=== PATIENT | male | born 1960 | race Caucasian/White ===

== ENCOUNTER → 2020-06-04 10:19 | Outpatient (CLI) | payer OTHER, SELFPAY ==
--- NOTE | ~2020-06-04 | CT_ITS ---
EXAMINATION: CT soft tissue neck w con DATE: 06/04/2020 10:48 INDICATION: Right neck lump. TECHNIQUE: Computed tomography (CT) of the neck was performed with 75 mL Omnipaque-350 intravenous co ntrast. Automated exposure control and iterative reconstruction technique were employed. The dose-erich gth product was 420.53 mGy-cm. COMPARISON: Cervical spine MRI 07/23/2011 FINDINGS: There are enlarged right mid and high internal jugular chain lymph nodes. A high right inte rnal jugular lymph node measures 3.3 x 3.1 cm. The lingual tonsils are prominent, which is chronic. T here is plaque in the proximal internal carotid arteries with less than 50% stenosis relative to norm al distal artery lumen diameters. There is severe cervical spondylosis. IMPRESSION: 1. Right internal jugular chain lymphadenopathy suspicious for metastatic squamous cell carcinoma or less likely lymphoma. Ultrasound-guided core needle biopsy is recommended. Reviewed, dictated and finalized at location A. 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 Right internal jugular chain lymphadenopathy suspicious for metastatic squam ous cell carcinoma or less likely lymphoma. Ultrasound-guided core needle biops y is recommended.
[2020-06-04 10:36] LABS: Estimated Glomerular Filt Rate > 60
== END ==
PROVIDERS: PCP Internal Medicine; Visit Provider Internal Medicine
DX: R22.0 Localized swelling, mass and lump, head (principal)
CPT/HCPCS: 70491; Q9967

== ENCOUNTER → 2020-09-27 09:15 | Outpatient (CLI) | payer OTHER, SELFPAY ==
--- NOTE | ~2020-09-27 | CT_ITS ---
EXAMINATION: CT soft tissue neck w con DATE: 09/27/2020 09:42 INDICATION: Right neck mass. TECHNIQUE: Computed tomography (CT) of the neck was performed with 75 mL Omnipaque-350 intravenous co ntrast. Automated exposure control and iterative reconstruction technique were employed. The dose-erich gth product was 458.53 mGy-cm. COMPARISON: Neck CT 06/04/2020 FINDINGS: There are enlarged right high and mid internal jugular chain lymph nodes. The largest node measures 4.2 x 3.7 cm and contains cystic areas, worsened from 3.4 x 2.9 cm on 06/04/2020. There is vivien que in the proximal internal carotid arteries with less than 50% stenosis relative to normal distal a rtery lumen diameters. There is mild mucosal thickening in the paranasal sinuses. There is severe cer vical spondylosis. IMPRESSION: 1. Worsened right internal jugular chain lymphadenopathy, likely metastatic squamous cell carcinoma. Ultrasound-guided core needle biopsy is recommended. Reviewed, dictated and finalized at location B. IMPRESSION: 1. Worsened right internal jugular chain lymphadenopathy, likely metastatic squ amous cell carcinoma. Ultrasound-guided core needle biopsy is recommended.
[2020-09-27 09:33] LABS: Estimated Glomerular Filt Rate > 60
== END ==
PROVIDERS: Visit Provider Otolaryngology
DX: R59.1 Generalized enlarged lymph nodes (principal)
CPT/HCPCS: 70491; Q9967

== ENCOUNTER 2024-06-10 08:43 | Outpatient (CLI) | payer OTHER, SELFPAY ==
--- NOTE | ~2024-06-10 | CT_ITS ---
EXAMINATION: CT soft tissue neck w con DATE: 06/10/2024 09:15 INDICATION: Mass of neck. TECHNIQUE: Computed tomography (CT) of the neck was performed with 75 mL Omnipaque-350 intravenous co ntrast. Automated exposure control and iterative reconstruction technique were employed. The dose-erich gth product was 455.77 mGy-cm. COMPARISON: Neck CT 09/27/2020 FINDINGS: There is a new 4 mm nodule in right lung upper lobe. There is a 5.0 x 3.8 cm mass involving the right palatine tonsil, base of tongue, tongue, and floor of mouth. There is right submandibular and right mid internal jugular chain lymphadenopathy. A right mid internal jugular merle mass measure s 5.6 x 3.6 cm. There are nodules in the thyroid measuring up to 9 mm, likely not clinically signific ant. There are enlarged left mid internal jugular chain lymph nodes. There is mild mucosal thickening in the paranasal sinuses. There is plaque in the proximal internal carotid arteries with less than 5 0% stenosis relative to normal distal artery lumen diameters. There is severe cervical spondylosis. IMPRESSION: 1. Mass involving the right palatine tonsil, base of tongue, tongue, and floor of mouth, consistent w ith squamous cell carcinoma. 2. Bilateral cervical lymphadenopathy, consistent with metastatic disease. 3. 4 mm pulmonary nodule, new from 09/27/2020, which is indeterminate for metastatic disease. Reviewed, dictated and finalized at location [facility] IMPRESSION: 1. Mass involving the right palatine tonsil, base of tongue, tongue, and floor of mouth, consistent with squamous cell carcinoma. 2. Bilateral cervical lymphadenopathy, consistent with metastatic disease. 3. 4 mm pulmonary nodule, new from 09/27/2020, which is indeterminate for metast atic disease.
--- OUTSIDE RECORDS SUMMARY | 2024-06-10 09:00 | XMS_ITS | Clinical Summary ---
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 Gender Identity Not on file Sexual Orientation Not on file Plan of Treatment Health Maintenance Due Date Last Done Comments Colorectal Cancer Screening Colonoscopy (10 Years) 1962 Annual Physical 1965 Hepatitis C 1980 DTaP, Tdap and Td Vaccines ( 1 - Tdap) 1981 Zoster Vaccines (1 of 2) 2012 COVID-19 Vaccine ( - 2023-2 5 season) 2024 Influenza Adult (#1) 2024 RSV Immunization or 60+ Years (1 - 1-dose 75+ series) 2037 Meningococcal B Vaccine Aged Out No l onger eligible based on patient's age to complete this topic Meningococcal Vaccine Aged Out No noris rebeca eligible based on patient's age to complete this topic Pneumococcal Vaccine: Pediat rics (0 to 5 Years) and At-Risk Patients (6 to 64 Years) Aged Out No longer eligible b ased on patient's age to complete this topic RSV Immunizations Under 20 Months Aged Out No longer eligible based on patient's age to complete this topic
--- OUTSIDE RECORDS SUMMARY | 2024-06-10 09:00 | XMS_ITS | Data Portability ---
Author Organization [place] - [facility] , [facility] Address [address] [place] [address] Assessment Encounter Date Assessment Date Assessment LastModified by Organization Details LastModified Time 05/23/2024 05/23/2024 Provided counseling/treatme nt recommendations as noted below: Education provided on relevant diagnosis Medication Options: DD: Cellulitis vs Abscess -Take bactrim as prescribed. Patient is advised to follow up with his PCP within the next 7 days for follow up and evaluation. Patient is informed that bilateral lower leg swelling can be a sign of cardiac issues. Patient states understanding. -Morgan the area with a marker to track progress of infection -Epsom salt soaks -Elevate the area throughout the day -Tylenol or Ibuprofen as needed for discomfort to the area -Cover the area as needed to avoid introducing bacteria and leave open to air when possible to promote healing -Report to the emergency department for any fevers, sweats, chills, loss of sensation, increased swelling, red streaking, numbness, or tingling. -Follow up as needed for continued symptoms -Counseled on the importance of follow up if symptoms not improving with recommended treatment plan. Patient to be seen for repeat evaluation if symptoms worsen, counseled on red flag symptoms to indicate need for emergent follow up. Patient expressed understanding and agreement with the treatment plan as [email or web address] Not available 05/23/2024 15:09:45 Plan of Treatment Reminders Order Date Submit Date Provider Last Modified By Organization Details Last Modified Time Details Appointments None recorded. Lab None recorded. Referral None recorded. Procedures None recorded. Surgeries None recorded. Imaging None recorded. Medication Orders cephalexin 500 mg capsule 2023 025 [facility] #[id number], [address], [place], [place], [id number], 15:02:51 Bactrim DS 800 mg-160 mg tablet 2024 025 [id number], [address], [place], [place], [id number], 15:07:49 Patient TargetsNo targets recorded. Patient Instructions Encounter Date Encounter Id Patient Instructions Last Modified By Organization Details Last Modified Time 04/29/2024 [id number] cellulitis: care instructions [email or web address] Not available 04/29/2024 13:25:55 Reason for Referral None Reported. Problems No Known Problems Medical Equipment None Reported. Allergies No known drug allergies Medications Name Sig Start Date Stop Date Status Note LastModified by Organization Details LastModified Time cephalexin 500 mg capsule Take 1 capsule every 6 hours by oral route for 7 days. 05/23 completed Not Available Not Available Not Available Bactrim DS 800 mg-160 mg tablet Take 1 tablet every 12 hours by oral route for 7 days. 2024 active Not Available Not Available Not Avai lable Vitals None Recorded Social History None recorded. Functional Status None recorded. Mental Status None recorded. Family History Nothing Reported. Medical History Condition Response Cancer Y Past Encounters Encounter ID Performer Location Encounter Start Date Encounter Closed Date Diagnosis/Indication Diagnosis SNOMED-CT Code Diagnosis ICD10 Code Diagnosis Note [id number] DAMIÁN Sinhg [facility] [place] [address] 04/29/2024 13:07:09 04/29/2024 19:14:18 Cellulitis 405416533 L03.90 Complete full course of antibiotic Prop up legs on pillows to reduce pain and swellingF/ U with PCP [id number] DAMIÁN Rdz [facility] [place] [address] 05/23/2024 14:49:00 05/23/2024 21:07:52 Cellulitis of left lower limb [id number] L03.116 Cellulitis of right lower limb [id number] L03.115 Health Concerns Section Related Observation LastModified by Organization [place] lizama LastModified Time None Recorded Concern Status LastModified by Organization Details LastModified Time None Recorded Advance Directives Directive None Recorded Payers Encounter Date Sequence Insurance Name Policy Number Policy Shane Covered Member ID Shane Member ID Guarantor Name 04/29/[address] [facility] [id number] Leaann Ernesto [id number] Leaann Ernesto 04/29/2024 3 *SELF PAY* [id number] Leaann Ernesto [id number] Leaann Ernesto 05/23/[address] [facility] [id number] Leaann Ernesto [id number] Leaann Ernesto 05/23/2024 3 *SELF PAY* [id number] Leaann Ernesto [id number] Leaann Ernesto Notes Date Note Type Note Provider Name and Address Organization Details Recorded Time 04/29/2024 text/html Call connected, patient greeted. Patient name, , telephone number, and location verified verbally with the patient. Telemedicine limitations reviewed, answered all questions the patient had about the telehealth interaction, and verbal consent obtained to treat. Clinician attests they are physically located in the following state at the time of visit: [place] HPI: 64 y/o male c/o cellulitis to bilateral lower extremities x 1 week. Bilateral lower legs edematous with macular erythema, per patient, itches at night. Patient denies pain, warmth to touch, leg wounds, ulcers, open areas. Reports history of cellulitis to bilateral lower extremities. DAMIÁN Singh [address] [place] [address], [place], [address], [facility] 04/29/2024 13:26:06 05/23/2024 text/html Call connected, patient greeted. Patient name, , telephone number and location verified verbally with the patient. Telemedicine limitations reviewed, answered all questions the patient had about the telehealth interaction, and verbal consent obtained to treat. Clinician attests they are physically located in the following state at the time of visit: [place] CC:skin issue HPI:64 year old male patient presents today for swelling and redness to the lower legs bilaterally starting April 22, 2024, He was seen through urgent care telehealth 04/29/24 and was treated with keflex x 7 days with relief in symptoms but then the symptoms returned again.OTC/prescrip tion medications and/or at home treatments include: nonePatient denies: fevers, sweats, chills, numbness, tingling, or loss of sensation DAMIÁN Rdz [address] [place] [address] [address], [place], [address], [facility] 05/23/2024 15:11:39
--- OUTSIDE RECORDS SUMMARY | 2024-06-10 09:01 | XMS_ITS | Clinical Summary ---
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 Name Role Phone Marcos Mi MD Primary Care Provider [phone] Hosea Varela MD Unavailable [phone] Guero Fernandez MD Unavailable [phone] Allergies No known active allergies Medications lisinopril (PRINIVIL, ZESTRIL) 40 MG Tablet lisinopril 40 mg tablet TAKE 1 TABLET BY MOUTH EVERY DAY Active amLODIPine (NORVASC) 10 MG Tablet amlodipine 10 mg tablet TAKE 1 TABLET BY MOUTH EVERY DAY Active Active Problems Problem Noted Date Diagnosed Date Anxiety disorder due to medical condition 2020 Overview (12/21/2020): 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 Family History Medical History Relation Name Comments Heart Attack Mother Relation Name Status Comments Father Mother Social History Tobacco Use Types Packs/Day Years Used Date Smoking Tobacco: Former Cigarettes 0.5 14 0 12/20/1976 - 12/20/1990 Cigars Smokeless Tobacco: Never Comments:He quit smoking cig arettes 1990 but continued to smoke the occasional cigar until several months ago when he also quit that. Alcohol Use Standard Drinks/Week Comments Yes 0 (1 standard drink = 0.6 oz pur e alcohol) Occasionally/weekly. Sex and Gender Information Value Date Recorded Sex Assigned at Not on file Legal Sex Male 10:48 AM CDT Gender Identity Not on file Sexual Orientation Not on file Last Filed Vital Signs Vital Sign Reading Time Taken Comments Blood Pressure 164/64 12/20/2020 10:31 AM CDT Pulse 114 12/20/2020 10:31 AM CDT Temperature 36.7 C (98 F) 12/20/2020 10:31 AM CDT Respiratory Rate 18 12/20/2020 10:31 AM CDT Oxygen Saturation 97% 12/20/2020 10:31 AM CDT Inhaled Oxygen Concentration - - Weight 99.8 kg (220 lb) 12/20/2020 10:31 AM CDT Height 180.3 cm (5' 11 ) 12/20/2020 10:31 AM CDT Body Mass Index 30.68 12/20/2020 10:31 AM CDT Plan of Treatment Health Maintenance Due Date Last Done Comments Hepatitis C Virus (HCV) Screening 1960 TdaP Immunization 1962 SARS-COV-2 Immunization (#1) 1967 Pneumococcal Immunization Co mbined (1 of 2 - PCV) 1968 Pneumococcal Immunization (5 0+ years) (1 of 2 - PCV) 1981 Zoster Immunization (1 of 2) 1981 Colonoscopy 2007 Colorectal Cancer Screening 2007 Cologuard 2012 Immunochemical Fecal Occult Blood 2012 PSA Discussion 2017 Influenza Immunization (#1) 2024 Respiratory Syncytial Virus (RSV) Immunization (Adult) (1 - 1-dose 75+ series) 2037 Hepatitis B Immunization Aged Out No longer eligible based on patient's age to complete this topic Meningococcal Immunization (ACWY) Aged Out No longer eligible based on patient's age to complete this topic Rotavirus Immunization Aged Out No lo nger eligible based on patient's age to complete this topic Insurance Care Teams Geophysics Teacher Relationship Specialty Start Date End Date Marcos Mi MD PCP - General Internal Medicine 12/04/20 Hosea Varela MD [address] [place] [address] Consulting Physician Otolaryngology 12/18/20 Guero Fernandez MD [address] [place] [address] Consulting Physician Radiation Oncology 12/18/20
--- OUTSIDE RECORDS SUMMARY | 2024-06-10 09:01 | XMS_ITS | Data Portability ---
Author Organization [facility] [employer], Main Office Address [address] [place] [address] Assessment No assessment recorded. Plan of Treatment Reminders Order Date Submit Date Provider Last Modified By Organization Details Last Modified Time Details Appointments New Patient 15 2024 10:15A Marty Varela MD Not available Not available Not available Lab CBC w/ auto diff 2024 025 [facility], [address] [place], [address], 06/06/2024 00:30:27 CMP, serum or plasma 2024 025 [facility], [address] [place], [address], 06/06/2024 00:30:27 Referral otolaryng ologist referral - Please call patient to schedule an appointme nt. Thank you. 2024 025 [facility] Vare[facility], [address], [place], [address], 06/03/2024 14:05:23 Procedures None recorded. Surgeries None recorded. Imaging CT, neck, soft tissue, w/ contrast - Please call patient to schedule. 2024 025 [facility]A [facility], [address], [place], [address], 06/06/2024 17:30:38 Medication Orders triamcino lone acetonide 0.1 % topical cream 2024 025 [id number], [address], [place], [place], [id number], 06/03/2024 13:31:49 lisinopri l 20 mg tablet 2024 025 [id number], [address], [place], [place], [id number], 06/03/2024 13:31:51 Patient TargetsNo targets recorded. Patient InstructionsNo instructions recorded. 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 Thank you. Referring Physician: Marcos Mi, Internal Medicine, Encounter Date: 06/03/2024 Results Created Date Observation Date Name Description Value Unit Range Abnormal Flag Note LastModifiedBy Organization Detail LastModifiedTime 11/14/19 21 11/13/2020 COVID -19 (SARS COV-2 ) RNA, VANE covid-19 RNA negati ve This test has been autho rized by the FDA under an Emerg ency Use Autho rizat ion (EUA) for use by autho rized labor atori es. Negat stuart resul ts shoul d be treat ed as presu mptiv e and, if incon siste nt with clini ebenezer signs and sympt oms neces tina for patie nt manag ement , shoul d be teste d with diffe rent autho rized or clear ed molec ular tests . Negat stuart resul ts do not precl ude SARS- Co-V- 2 infec tion and shoul d not be used as the sole basis for patie nt manag ement decis ions. Negat stuart resul ts shoul d be consi dered in the rachel xt of a patie nt's recen t expos ures, histo ry and the prese nce of clini ebenezer signs and sympt oms consi stent with COVID -19. Dolores e brooklynn w the Fact Sheet s for healt h care provi ders and patie nts at the [facility] te: https ://gl oalpo into care. t/en/ produ ct-de tails /id-n ow-co vid-1 9.htm l Metho dolog y: Isoth ermal Nucle ic Acid Ampli ficat ion Not Available [facility] (Lab) [address] [place], [address], 11/13/2020 17:45:24 11/17/19 21 11/16/2020 POTAS SIUM potassium 3.9 mmol/ L 3.5-5. 1 Not Available [facility] (Lab) [address] [place], [address], 11/16/2020 12:27:30 11/17/19 21 11/16/2020 PLATE LET COUNT platelets 240 x10'3 /uL 150-40 0 Not Available [facility] (Lab) [address] [place], [address], 11/16/2020 12:19:13 11/17/19 21 11/16/2020 HEMOG LOBIN /SHEBA TOCRI T hemoglobin 15.5 g/dL 13.2-1 7.0 Not Available [facility] (Lab) [address] [place], [address], 11/16/2020 12:19:09 11/17/19 21 11/16/2020 HEMOG LOBIN /SHEBA TOCRI T hematocrit 44.7 % 39.3-5 0.0 Not Available [facility] (Lab) [address] [place], [address], 11/16/2020 12:19:09 05/02/20 21 05/02/2021 MICRO ALBUM IN RANDO M URINE microalb 31.2 mg/L 0.0-16 .6 high Not Available [facility] (Lab) [address] [place], [address], 05/02/2021 20:15:27 05/02/20 21 05/02/2021 HEMOG LOBIN A1C HA1C 5.4 % 4.0-6. 0 Diabe samir Scree daron Crite laura: <5.7% Consi stent with absen ce of diabe samir 5.7-6 .4% Consi stent with incre ased risk for diabe samir (pred iabet es) >OR=6 .5% Consi stent with diabe samir REFER ENCE: Diabe samir Care 2016, 39(Sena ppl.1 ):s13 -s22 Not Available [facility] (Lab) [address] [place], [address], 05/02/2021 21:27:25 05/02/20 21 05/02/2021 COMPR EHENS STUART METAB OLIC PANEL sodium 140 mmol/ L 137-14 5 Not Available [facility] (Lab) [address] [place], [address], 05/02/2021 20:17:15 05/02/20 21 05/02/2021 COMPR EHENS STUART METAB OLIC PANEL potassium 4.1 mmol/ L 3.5-5. 1 Not Available [facility] (Lab) [address] [place], [address], 05/02/2021 20:17:15 05/02/20 21 05/02/2021 COMPR EHENS STUART METAB OLIC PANEL chloride 102 mmol/ L 98-107 Not Available [facility] (Lab) [address] [place], [address], 05/02/2021 20:17:15 05/02/20 21 05/02/2021 COMPR EHENS STUART METAB OLIC PANEL carbon dioxide 24 mmol/ L 22-30 Not Available [facility] (Lab) [address] [place], [address], 05/02/2021 20:17:15 05/02/20 21 05/02/2021 COMPR EHENS STUART METAB OLIC PANEL agap 18.1 mmol/ L 14-22 Not Available [facility] (Lab) [address] [place], [address], 05/02/2021 20:17:15 05/02/20 21 05/02/2021 COMPR EHENS STUART METAB OLIC PANEL glucose 135 mg/dL 70-99 high Not Available [facility] (Lab) [address] [place], [address], 05/02/2021 20:17:15 05/02/20 21 05/02/2021 COMPR EHENS STUART METAB OLIC PANEL BUN 10 mg/dL 8-19 Not Available [facility] (Lab) [address] [place], [address], 05/02/2021 20:17:15 05/02/20 21 05/02/2021 COMPR EHENS STUART METAB OLIC PANEL creatinine 0.83 mg/dL 0.66-1 .25 Not Available [facility] (Lab) [address] [place], [address], 05/02/2021 20:17:15 05/02/20 21 05/02/2021 COMPR EHENS STUART METAB OLIC PANEL GFR >60 Refer ence Range : [place] [facility] GFR Healt hy Adult : >60 mL/mi n/1.7 3 m2 Chron ic Kidne y Disea se: 15-60 mL/mi n/1.7 3 m2 Kidne y Failu re: <15/m L/min /1.73 m2 www.n iddk. nih.g ov The MDRD study equat ion has not been valid ated in child rommel <18 years of age; pregn ant women ; the elder ly >85 years of age; or in some racia l or ethni c subgr oups, such as Hispa nics. Outsi de the valid ated zara eters , estim ated GFR is less accur ate, requi ring clini ebenezer judgm ent on a case- by-ca se basis . Clini ebenezer inter preta tion for other races and ages must be made by the clini lisa. The MDRD study equat ion has not been valid ated for the evalu ation of serum creat inine relat ed to nutri gurdeep l statu s or medic ation usage . For perso ns <18 years of age, a pedia tric GFR calcu dianne is avail able on the [facility] websi te: https ://stephanie w.dave goldsteiny.o trini/pr ofess ional s/kdo qi/gf r_cal culat or Not Available [facility] (Lab) [address] [place], [address], 05/02/2021 20:17:15 05/02/20 21 05/02/2021 COMPR EHENS STUART METAB OLIC PANEL alkaline phosphatase 88 U/L 38-126 Not Available [facility] (Lab) [address] [place], [address], 05/02/2021 20:17:15 05/02/20 21 05/02/2021 COMPR EHENS STUART METAB OLIC PANEL alanine aminotransfe rase 20 U/L 0-50 Not Available [facility] (Lab) [address] [place], [address], 05/02/2021 20:17:15 05/02/20 21 05/02/2021 COMPR EHENS STUART METAB OLIC PANEL aspartate aminotransfe rase 22 U/L 15-46 Not Available [facility] (Lab) [address] [place], [address], 05/02/2021 20:17:15 05/02/20 21 05/02/2021 COMPR EHENS STUART METAB OLIC PANEL bilirubin, total 0.80 mg/dL 0.20-1 .30 Not Available [facility] (Lab) [address] [place], [address], 05/02/2021 20:17:15 05/02/20 21 05/02/2021 COMPR EHENS STUART METAB OLIC PANEL calcium 9.4 mg/dL 8.4-10 .2 Not Available [facility] (Lab) [address] [place], [address], 05/02/2021 20:17:15 05/02/20 21 05/02/2021 COMPR EHENS STUART METAB OLIC PANEL total protein 7.5 g/dL 6.3-8. 2 Not Available [facility] (Lab) [address] [place], [address], 05/02/2021 20:17:15 05/02/20 21 05/02/2021 COMPR EHENS STUART METAB OLIC PANEL albumin 4.7 g/dL 3.4-5. 0 Not Available [facility] (Lab) [address] [place], [address], 05/02/2021 20:17:15 05/02/20 21 05/02/2021 COMPR EHENS STUART METAB OLIC PANEL globulin 2.8 g/dL 2.6-4. 2 Not Available [facility] (Lab) [address] [place], [address], 05/02/2021 20:17:15 05/02/20 21 05/02/2021 COMPR EHENS STUART METAB OLIC PANEL A/G ratio 1.7 ratio 1.0-2. 0 Not Available [facility] (Lab) [address] [place], [address], 05/02/2021 20:17:15 05/02/20 21 05/02/2021 CBC/C OMPLE TE BLD COUNT W/DIF F mean RBC HGB concentratio n 33.1 g/dL 31.0-3 6.0 Not Available [facility] (Lab) [address] [place], [address], 05/02/2021 19:42:32 05/02/20 21 05/02/2021 CBC/C OMPLE TE BLD COUNT W/DIF F white blood cells 8.8 x10'3 /uL 4.2-10 .8 Not Available [facility] (Lab) [address] [facility] [place], [address], 05/02/2021 19:42:32 05/02/20 21 05/02/2021 CBC/C OMPLE TE BLD COUNT W/DIF F red blood cells 5.37 x10'6 /uL 4.10-5 .80 Not Available [facility] (Lab) [address] [place], [address], 05/02/2021 19:42:32 05/02/20 21 05/02/2021 CBC/C OMPLE TE BLD COUNT W/DIF F hemoglobin 16.3 g/dL 13.2-1 7.0 Not Available [facility] (Lab) [address] [place], [address], 05/02/2021 19:42:32 05/02/20 21 05/02/2021 CBC/C OMPLE TE BLD COUNT W/DIF F hematocrit 49.2 % 39.3-5 0.0 Not Available [facility] (Lab) [address] [facility] [place] [place], [address], 05/02/2021 19:42:32 05/02/20 21 05/02/2021 CBC/C OMPLE TE BLD COUNT W/DIF F mean red cell volume 91.6 fL 80.0-9 7.0 Not Available [facility] (Lab) [address] [place], [address], 05/02/2021 19:42:32 05/02/20 21 05/02/2021 CBC/C OMPLE TE BLD COUNT W/DIF F mean red cell hemoglobin 30.4 pg 27.0-3 3.0 Not Available [facility] (Lab) [address] [place], [address], 05/02/2021 19:42:32 05/02/20 21 05/02/2021 CBC/C OMPLE TE BLD COUNT W/DIF F red cell distribution width 12.8 % 11.8-1 5.5 Not Available [facility] (Lab) [address] [place], [address], 05/02/2021 19:42:32 05/02/20 21 05/02/2021 CBC/C OMPLE TE BLD COUNT W/DIF F platelets 226 x10'3 /uL 150-40 0 Not Available [facility] (Lab) [address] [place], [address], 05/02/2021 19:42:32 05/02/20 21 05/02/2021 CBC/C OMPLE TE BLD COUNT W/DIF F mean platelet volume 11.8 fL 9.0-12 .4 Not Available [facility] (Lab) [address] [place], [address], 05/02/2021 19:42:32 05/02/20 21 05/02/2021 CBC/C OMPLE TE BLD COUNT W/DIF F neutrophils 62.0 % 39.0-7 2.0 Not Available [facility] (Lab) [address] [place], [address], 05/02/2021 19:42:32 05/02/20 21 05/02/2021 CBC/C OMPLE TE BLD COUNT W/DIF F lymphocytes 24.8 % 16.0-4 7.0 Not Available [facility] (Lab) [address] [place], [address], 05/02/2021 19:42:32 05/02/20 21 05/02/2021 CBC/C OMPLE TE BLD COUNT W/DIF F monocytes 10.9 % 5.0-12 .0 Not Available [facility] (Lab) [address] [place], [address], 05/02/2021 19:42:32 05/02/20 21 05/02/2021 CBC/C OMPLE TE BLD COUNT W/DIF F eosinophils 1.0 % 1.0-7. 0 Not Available [facility] (Lab) [address] [place], [address], 05/02/2021 19:42:32 05/02/20 21 05/02/2021 CBC/C OMPLE TE BLD COUNT W/DIF F basophils 0.8 % 0.0-2. 0 Not Available [facility] (Lab) [address] [place], [address], 05/02/2021 19:42:32 05/02/20 21 05/02/2021 CBC/C OMPLE TE BLD COUNT W/DIF F immature granulocytes 0.5 % 0.00-0 .50 Not Available [facility] (Lab) [address] [place], [address], 05/02/2021 19:42:32 05/02/20 21 05/02/2021 CBC/C OMPLE TE BLD COUNT W/DIF F neutrophils, absolute count 5.48 x10'3 /uL 1.5-8. 0 Not Available [facility] (Lab) [address] [place], [address], 05/02/2021 19:42:32 05/02/20 21 05/02/2021 CBC/C OMPLE TE BLD COUNT W/DIF F lymphocytes, absolute count 2.19 x10'3 /uL 1.07-3 .43 Not Available [facility] (Lab) [address] [place], [address], 05/02/2021 19:42:32 05/02/20 21 05/02/2021 CBC/C OMPLE TE BLD COUNT W/DIF F monocytes, absolute count 0.96 x10'3 /uL 0.29-0 .99 Not Available [facility] (Lab) [address] [place], [address], 05/02/2021 19:42:32 05/02/20 21 05/02/2021 CBC/C OMPLE TE BLD COUNT W/DIF F eosinophils, absolute count 0.09 x10'3 /uL 0.02-0 .53 Not Available [facility] (Lab) [address] [place], [address], 05/02/2021 19:42:32 05/02/20 21 05/02/2021 CBC/C OMPLE TE BLD COUNT W/DIF F basophils, absolute count 0.07 x10'3 /uL 0.01-0 .08 Not Available [facility] (Lab) [address] [place], [address], 05/02/2021 19:42:32 05/02/20 21 05/02/2021 CBC/C OMPLE TE BLD COUNT W/DIF F immature granulocytes ,absolute 0.04 x10'3 /uL 0.00-0 .05 Not Available [facility] (Lab) [address] [place], [address], 05/02/2021 19:42:32 05/02/20 21 05/02/2021 CBC/C OMPLE TE BLD COUNT W/DIF F nucleated red blood cells 0.0 % -0 Not Available [facility] (Lab) [address] [place], [address], 05/02/2021 19:42:32 05/02/20 21 05/02/2021 CBC/C OMPLE TE BLD COUNT W/DIF F NRBC# 0.00 x10'3 /uL Not Available [facility] (Lab) [address] [place], [address], 05/02/2021 19:42:32 05/02/20 21 05/02/2021 PSA SCREE N PSA medicare screen 0.78 NG/mL 0.00-4 .00 Not Available [facility] (Lab) [address] [place], [address], 05/02/2021 20:30:55 05/02/20 21 05/02/2021 LIPID PANEL cholesterol 219 mg/dL 140-19 9 high NIH SEAN NSUS RECOM MENDA TION FOR SHAI STERO L: ADULT CHILD LOW RISK: <200 <170 BORDE RLINE : <200- 239 ----- HIGH RISK: >240 >200 Not Available [facility] (Lab) [address] [place], [address], 05/02/2021 20:17:17 05/02/20 21 05/02/2021 LIPID PANEL triglyceride s 145 mg/dL 0-150 NIH SEAN NSUS REPOR T RECOM MENDA TION FOR TRIGL YCERI KYLIE: ADULT CHILD LOW RISK: <150 ----- BODER LINE: 150-1 99 ----- HIGH RISK: >200 ----- Not Available [facility] (Lab) [address] [place], [address], 05/02/2021 20:17:17 05/02/20 21 05/02/2021 LIPID PANEL HDL cholesterol 40 mg/dL 40- Not Available [facility] (Lab) [address] [place], [address], 05/02/2021 20:17:17 05/02/20 21 05/02/2021 LIPID PANEL LDL cholesterol, calculated 150 mg/dL 0-130 high NIH SEAN NSUS REPOR T RECOM MENDA TIONS FOR LDL: ADULT CHILD LOW RISK <130 <110 (OPTI MAL LDL) <100 ----- BORDE RLINE : 130-1 59 ----- HIGH RISK: >160 >130 A TRIGL YCERI DE RESUL T >400 INVAL IDATE S THE CALCU LATIO N FOR LDL FRACT IONAT ION - THE LDL RESUL T WILL NOT BE REPOR ISHAAN. Not Available [facility] (Lab) [address] [place], [address], 05/02/2021 20:17:17 12/13/19 21 12/12/2020 PET-C T, whole body scan No observ ation record ed. [id number] Not Available 07/02/2022 14:53:09 12/22/19 21 12/12/2020 PET-C T, whole body scan No observ ation record ed. [id number] Not Available 07/02/2022 14:53:09 12/22/19 21 10/12/2020 PET-C T, skull base to mid-t high scan No observ ation record ed. [id number] Not Available 07/02/2022 14:53:09 Result Notes None recorded. Problems Name Problem SNOMED Code Status Onset Date Resolution Date Notes Provider Name and Address Organization Details Recorded Time Daytime somnolence 207585840783 Active 2018 Not Available [facility] 3 14:49:43 Osteoarthr itis 705260041 Active Not Available [facility] 3 14:49:43 Obesity 904740089 Active 2018 Not Available [facility] 3 14:49:43 Essential hypertensi on 33070836 Active OCHOA Helms, [employer] 5 13:05:17 Diabetes mellitus 94328679 Active 2018 Not Available [facility] 3 14:49:43 Fatigue 85261197 Active Not Available [facility] 3 14:49:43 Mass of neck 217464643 Active 2024 Marcos Mi MD [address], [place], [address] , [employer] 5 13:28:34 Eruption 644904577 Active 2024 Marcos Mi MD [address], [address], [place], [address] , [employer] 5 13:29:15 Cellulitis 508098356 Active 2024 Marcos Mi MD [address], [place], [address] , [email or web address] 5 13:30:31 Blood glucose outside reference range 107217800 Active 2024 CECILIA Bean, [place] - [facility] 09:30:18 Problem Notes None recorded. Procedures Surgical History Date Name Laterality Status Provider Name and Address Organization Details Recorded Time BIOPSY/EXCISI ON, LYMPH NODE(S), OPEN, DEEP CERVICAL NODE(S) (SURG) completed Not Available [facility] 07/02/2022 14:53:06 Imaging Results Imaging Date Name Status LastModified by [facility] Details LastModified Time 12/12/2020 PET-CT, whole body scan completed [id number] Information not available 07/02/2022 14:53:09 12/12/2020 PET-CT, whole body scan completed [id number] Information not available 07/02/2022 14:53:09 10/12/2020 PET-CT, skull base to mid-thigh scan completed [id number] Information not available 07/02/2022 14:53:09 Procedure Notes None recorded. Medical Equipment None Reported. Allergies No known drug allergies Medications Name Sig Start Date Stop Date Status Note LastModified by Organization Details LastModified Time Xylocaine with Epinephrine 2 %-1:100,000 injection solution Take 1 mL by injection route. 12/13 completed Not Available Not Available Not Available clindamycin HCl 300 mg capsule Take 1 capsule every 6 hours by oral route. 05/09 completed Not Available Not Available Not Available lisinopril 20 mg tablet Take 1 tablet every day by oral route. 2024 active Not Available Not Available Not Avai lable Toprol XL 50 mg tablet,exte nded release Take 1 tablet every day by oral route for 30 days. 10/31 completed Not Available Not Available Not Available amlodipine 5 mg tablet TAKE 1 TABLET BY MOUTH ONCE DAILY active Not Available Not Available No t Available triamcinolo ne acetonide 0.1 % topical cream APPLY A THIN LAYER TO THE AFFECTED AREA(S) BY TOPICAL ROUTE 2 TIMES PER DAY 2024 active Not Available Not Available Not Avai lable amoxicillin 875 mg tablet TAKE 1 TABLET BY MOUTH EVERY 12 HOURS UNTIL ALL TAKEN 05/02 completed Not Available Not Available Not Available amlodipine 10 mg tablet TAKE 1 TABLET BY MOUTH EVERY DAY 06/03 completed Not Available Not Available Not Available Cartia XT 120 mg capsule,ext ended release TAKE ONE CAPSULE BY MOUTH ONCE DAILY 09/28 completed Not Available Not Available Not Available hydrocodone 7.5 mg-acetamin ophen 325 mg tablet TAKE 1 TABLET BY MOUTH EVERY 4 HOURS NEEDED FOR PAIN 12/13 completed Not Available Not Available Not Available methylpredn isolone 4 mg tablets in a dose pack FOLLOW PACKAGE DIRECTION S 12/13 completed Not Available Not Available Not Available [facility] 5 mg-325 mg tablet Take 1 tablet every 8 hours by oral route as needed. 05/14 completed Not Available Not Available Not Available lisinopril 40 mg tablet TAKE 1 TABLET BY MOUTH EVERY DAY 06/03 completed Not Available Not Available Not Available cefdinir 300 mg capsule TAKE ONE CAPSULE BY MOUTH TWICE DAILY 12/13 completed Not Available Not Available Not Available Vitals Date Recorded Body mass index (BMI) Body mass index (BMI) Body mass index (BMI) Body mass index (BMI) Body height Body height Body height Body height Oxygen saturation Oxygen saturation in Arterial blood by Pulse oximetry Oxygen saturation Oxygen saturation in Arterial blood by Pulse oximetry Oxygen saturation Oxygen saturation in Arterial blood by Pulse oximetry Oxygen saturation Oxygen saturation in Arterial blood by Pulse oximetry Pain severity - 0-10 verbal numeric rating [Score] - Reported Heart rate Heart rate Heart rate Heart rate Body temperature Body temperature Body temperature Body temperature Body weight Body weight Body weight Body weight Systolic blood pressure Diastolic blood pressure Systolic blood pressure Diastolic blood pressure Systolic blood pressure Diastolic blood pressure Systolic blood pressure Diastolic blood pressure Provider Name and Address Organization Details Last Updated DateTime 3 31.1 kg/m2 30.8 kg/m2 26.5 kg/m2 26.2 kg/m2 180.34 cm 180.34 cm 180.34 cm 180.34 cm 98 % 98 % 98 % 98 % 98 % 98 % 97 % 97 % 0 87 /min 98 /min 105 /min 118 /min 97.9 [degF] 97.8 [degF] 97 [degF] 98.4 [degF] 273290. 1 g 592836. 91 g 81896.5 5 g 68901.3 7 g 140 mm[Hg] 70 mm[Hg] 144 mm[Hg] 68 mm[Hg] 168 mm[Hg] 90 mm[Hg] 188 mm[Hg] 74 mm[Hg] Not Available [facility] 3 14:47:15 Date Recorded Body weight Body temperature Body mass index (BMI) Body height Heart rate Oxygen saturation Oxygen saturation in Arterial blood by Pulse oximetry Systolic blood pressure Diastolic blood pressure Provider Name and Address Organization Details Last Updated DateTime 5 23802.1 2 g 97.6 [degF] 19.8 kg/m2 180.34 cm 97 /min 98 % 98 % 164 mm[Hg] 70 mm[Hg] OCHOA [place] [employer] [facility] 5 12:56:27 Social History Question Answer Notes LastModified by Organizat ion Details LastModified Time Tobacco Smoking Status Never Smoker Not Available [facility] 07/02/2022 14:45:17 Do You Have An Advance Directive? No [id number] Information not available 07/02/2022 What Is Your Level Of Alcohol Consumption? Occasional [id number] Information not available 07/02/2022 What Is Your Level Of Caffeine Consumption? Occasional Information not available 06/03/2024 In The 14 Days Before Symptom Onset, Have You Had Close Contact With A Laboratory-confir med COVID-19 While That Case Was Ill? No [id number] Information not available 07/02/2022 In The 14 Days Before Symptom Onset, Have You Had Close Contact With A Person Who Is Under Investigation For COVID-19 While That Person Was Ill? No [id number] Information not available 07/02/2022 Are You Currently Employed? No Retired Information not available 06/03/2024 What Type Of Diet Are You Following? REGULAR Low Sugar Information not available 06/03/2024 What Is The Highest Grade Or Level Of School You Have Completed Or The Highest Degree You Have Received? [id number] Information not available 06/03/2024 Have There Been Any Changes To Your Family Or Social Situation? Yes Laid Off From Work [id number] Information not available 07/02/2022 What Is The Fluoride Status Of Your Home? Fluoridated [id number] Information not available 07/02/2022 Do You Use Insect Repellent Routinely? No Information not available 06/03/2024 What Was The Date Of Your Most Recent Tobacco Screening? 06/03/2024 Information not available 06/03/2024 Have You Ever Been Counseled For Unhealthy Alcohol Use? No Information not available 06/03/2024 Do You Have Any Pets? No [id number] Information not available 07/02/2022 What Is Your Relationship Status? [id number] Information not available 07/02/2022 Do You Use Your Seat Belt Or Car Seat Routinely? Yes [id number] Information not available 07/02/2022 Do You Have Smoke And Carbon Monoxide Detectors In Your Home? Yes [id number] Information not available 07/02/2022 Are You Passively Exposed To Smoke? No Information no t available 06/03/2024 Are There Any Smokers In Your House? No Information not available 06/03/2024 Do You Feel Stressed (tense, Restless, Nervous, Or Anxious, Or Unable To Sleep At Night)? [id number] Information not available 07/02/2022 Do You Use Any Illicit Or Recreational Drugs? No Information not available 06/03/2024 Do You Use Sunscreen Routinely? No Information not available 06/03/2024 Have You Recently Traveled Abroad? No Information not available 06/03/2024 Do You Have Any Dietary Restrictions? No [id number] Information not available 07/02/2022 Sex: Male Functional Status Question Answer Note LastModified by Organizat ion Details LastModified Time What is your exercise level? None [id number] Information not available 07/02/2022 Mental Status None recorded. Family History Relationship Description Onset Age of this Age Resolved Age Notes LastModified by Organization Details LastModified Time Mother Heart disease Not available 12:57:19 Paternal Grandmother Diabetes mellitus Not available 12:57:44 Paternal Aunt Diabetes mellitus Not available 12:57:44 Medical History Condition Response MRSA N SLEEP APNEA N ALLERGIES/HAYFEVER N LUNG DISEASE/DISORDER N INSOMNIA N RADIATION / CHEMOTHERAPY N COPD N HIGH CHOLESTEROL / HYPERLIPIDEMIA N HYPERTHYROIDISM N BLOOD DISEASES N EAR OR HEARING PROBLEMS N HYPOTHYROIDISM N DEPRESSION (INCLUDING POST ) N HAVE YOU BEEN HOSPITALIZED OR SEEN IN [facility] ER IN THE PAST YEAR ? N STROKE/TIA N ULCERS N OBESITY N ANEURYSM N HISTORY WITH COMPLICATIONS WITH ANESTHES IA ? N NO SIGNIFICANT PAST MEDICAL HISTORY N USE OF BLOOD THINNERS N DIABETES, TYPE N ENT N PARATHYROID DISEASE N SEASONAL ALLERGIES N HEARTBURN / REFLUX N HEPATITIS / LIVER DISEASE N SLEEP DISORDER N SEIZURES/EPILEPSY N HEADACHES/MIGRAINES N CHF N PACEMAKER N DIZZINESS N AIDS/HIV N HEART DISEASE/HEART PROBLEMS N FRACTURES N HYPERTENSION Y CANCER: SPECIFY N TOURETTE'S N BLOOD TRANSFUSION N ANEMIA/BLOOD DISORDER N ANESTHESIA COMPLICATIONS N CHRONIC EAR INFECTIONS N TUBERCULOSIS N Past Encounters Encounter ID Performer Location Encounter Start Date Encounter Closed Date Diagnosis/Indication Diagnosis SNOMED-CT Code Diagnosis ICD10 Code Diagnosis Note [id number] [facility] [address] [place] [address] 09/17/2020 00:00:00 09/17/2020 14:19:03 [id number] [facility] [address] [place] [address] 10/09/2020 00:00:00 10/09/2020 15:50:14 [id number] [facility] [address] [place] [address] 11/26/2020 00:00:00 11/26/2020 16:55:46 [id number] [facility] [address] [address] 12/13/2020 00:00:00 12/13/2020 17:20:19 [id number] [facility] [address] [address] 01/03/2021 00:00:00 01/03/2021 13:11:05 [id number] [facility] [address] [address] 05/02/2021 00:00:00 05/02/2021 09:52:15 [id number] [facility] Internal Med [address] [place] [address] 05/28/2021 00:00:00 05/28/2021 15:07:35 [id number] Marcos Mi MD [facility] Internal Med [address] [place] [address] 06/03/2024 12:24:47 06/03/2024 13:38:24 Essential hypertension 52287528 I10 start meds Adult heal th examination 122069884 Z00.00 Colonoscop y- NEVERPSA- 05/02/2021 Pneumovax- NeverFLU- NeverCOVID - Never Mass of neck 971153536 R 22.1 Eruption [id number] R21 Cellulitis 926915514 L03 .90 getting better Health Concerns Section Related Observation LastModified by Organization Detai ls LastModified Time None Recorded Concern Status LastModified by Organization Details LastModified Time None Recorded Advance Directives Directive N: Payers Encounter Date Sequence Insurance Name Policy Number Policy Shane Covered Member ID Shane Member ID Guarantor Name 06/03/2024 1 [facility] ([facility]) [id number] Jovanni Ernesto [id number] Ron Winston Ernesto Notes Date Note Type Note Provider Name and Address Organization Details Recorded Time 06/03/2024 text/html Pt is here today to re-establish care. He was last seen in 2021 and is here needing a referral to see a ENT Has cancer in his neck HPV positive 16He had cancer cut out about 3 yrs ago and now has another tumor that is quit large.He has h/o head and neck cancer but did not get RT or chemoNow noticed swelling on the neck for the last few months and getting bigger.He has some problem swallowing, change in the voiceHe has lost lots of weight Today his blood pressure is high - 164/70. States that he is not taking any meds but previously in his chart notes looks like he has been on Amlodipine 10mg and Lisinopril 40mgHome BP numbers are good.He has lost 46lbs since last OV in 2021. Lost weight on a diet (low carbs and no sugar) Recently treated for cellulitis Recently treated for Marcos Mi MD [address], [place], [address], [place] [facility] 06/03/2024 13:35:36
[2024-06-10 09:12] LABS: Estimated Glomerular Filt Rate > 60
== END 2024-06-10 08:44 | disposition home or self-care (01) ==
PROVIDERS: PCP Internal Medicine; Visit Provider Internal Medicine
DX: R59.0 Localized enlarged lymph nodes (principal); R91.1 Solitary pulmonary nodule
CPT/HCPCS: 70491; Q9967

== ENCOUNTER 2024-12-21 16:27 | Inpatient (IN) | payer OTHER, SELFPAY ==
--- NOTE | ~2024-12-21 | XR_ITS ---
EXAMINATION: XR chest 1V portable 12/21/2024 16:59 INDICATION: Chest pain TECHNIQUE:2 frontal images of the chest were obtained. COMPARISON: None FINDINGS: The lungs are clear. The cardiomediastinal silhouette is within normal limits. There are no pleural effusions. There is no pneumothorax suspected. There are a few distended air-filled loops of bowel in the upper abdomen. IMPRESSION: 1: NO ACUTE CARDIOPULMONARY DISEASE. 2. There are a few distended air-filled loops of bowel in the upper abdomen. Consider dedicated x-rays of the abdomen for further assessment Reviewed, dictated and finalized at location A. IMPRESSION: 1: NO ACUTE CARDIOPULMONARY DISEASE. 2. There are a few distended air-filled loops of bowel in the upper abdomen. Co nsider dedicated x-rays of the abdomen for further assessment
--- NOTE | ~2024-12-21 | CT_ITS ---
EXAMINATION: CT soft tissue neck chest w DATE: 12/22/2024 13:13 INDICATION: Tonsillar cancer TECHNIQUE: Computed tomography (CT) of the neck and chest was performed with 75 mL Omnipaque-350 intravenous contrast. Automated exposure control and iterative reconstruction technique were employed. The dose-length product was 511.20 mGy-cm. COMPARISON: Neck CT dated 06/10/2024 FINDINGS: Neck CT: No significant interval change in a mass involving the right palatine tonsil extending into the posterior inferior tongue and floor of the mouth, the epiglottis and aryepiglottic folds. There there is some edema in the surrounding fat as well as interval progression of some adjacent likely metastatic l ymphadenopathy which makes assessment of the margins of the mass more difficult than on the prior study. Measured at the level of the hyoid bone mass appears without significant change measuring 4.1 x 4.0 cm with corresponding prior measures 4.1 x 3.7 cm. There are multiple persistently enlarged right submandibular and internal jugular chain lymph nodes, many of which are predominantly cystic with interval decrease in size of the cystic component of a couple of the largest lymph nodes. There has however been increase in size of a few more solid appearing lymph nodes including submandibular lymph node anterior to the rectum and Reglan which is increased from 1.4 x 1.3 cm currently measuring 1.8 x 1.4 cm. There is also increase in size of a submental lymph node previously measuring 5 mm in maximal diameter, currently measuring 12 x 9 mm. Finally there is been increase in size of a right jugular chain lymph node situated between the thyroid cartilage and appearing to invade the right sternocleidomastoid muscle which is increased from 2.1 x 1.4 cm currently measuring 2.5 x 2.3 cm. There has also been increase in size of an enlarged lymph node in the mid left jugular chain which is increased from 14 x 10 mm currently measuring 19 x 16 mm. Again seen is a chronic calcifications without stenosis at the left carotid bulb and with 70% stenosis at the right carotid bulb. Orbits are normal. The thyroid gland and bilateral parotid and submandibular glands are unremarkable. Mild mucosal thickening at the floor of the right maxillary sinus. Mastoid air cells and middle ear cavities are clear. Severe cervical spondylosis. Chest CT: There are multiple scattered bilateral subcentimeter pulmonary nodules with smooth margins and random distribution suspicious for metastatic disease. The largest in the right lower lobe measures up to 9 mm in maximal diameter. 3 of these are included within the field of view of the prior study, all having increase in size. For reference the largest at the anterior right apex measuring 8 mm has increased from 5 mm consistent with progression of metastatic disease. No pneumonia, pulmonary edema or pleural effusion. Heart size is normal. Atherosclerotic coronary artery calcifications and likely stenting along the left anterior descending coronary artery. Mild fusiform aneurysm of the ascending thoracic aorta measuring up to 4.2 x 4.1 cm. No dissection. No pathologically enlarged thoracic lymphadenopathy. 1 cm low-attenuation cyst in the caudal right hepatic lobe. There is a 1.7 cm hypodense but greater than simple fluid attenuation lesion more cephalad in the right hepatic lobe which is concerning for metastatic disease. 8 mm cyst at the upper pole of the right kidney. Patient is severely cachectic with a scaphoid anterior upper abdominal wall. .Moderate thoracic spondylosis. IMPRESSION: 1. 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 2. Interval progression of metastatic disease with enlargement of several bilateral cervical lymph nodes and of multiple subcentimeter scattered pulmonary nodules. 2. Indeterminate 1.7 similar hyperdense mass at the posterior dome of the right hepatic lobe also suspicious for metastatic disease. 4. 4.2 cm fusiform ascending thoracic aortic aneurysm. 5. Atherosclerotic calcific lesions at the bilateral carotid bulbs with 70% stenosis on the right. Reviewed, dictated and finalized at location A. IMPRESSION: 1. Minimal change in a large mass involving the right palatine tonsil, posterio r inferior tongue, floor of the mouth, because and aryepiglottic folds consiste nt with squamous cell carcinoma. 2. Interval progression of metastatic disease with enlargement of several bilat eral cervical lymph nodes and of multiple subcentimeter scattered pulmonary nod ules. 2. Indeterminate 1.7 similar hyperdense mass at the posterior dome of the right hepatic lobe also suspicious for metastatic disease. 4. 4.2 cm fusiform ascending thoracic aortic aneurysm. 5. Atherosclerotic calcific lesions at the bilateral carotid bulbs with 70% suresh nosis on the right.
--- NOTE | ~2024-12-21 | XR_ITS ---
MODIFIED ESOPHAGRAM HISTORY: Tonsillar cancer TECHNIQUE: Modified barium esophagram was performed on 12/22/2024. I administered fluoroscopy and performed the exam with speech pathologist. Patient was seated for lateral fluoroscopic imaging for ingestion of thin liquids, pudding, solids and quantified amounts, followed by thin liquids in uncontrolled amounts. This was recorded on tape. A single fluoroscopic spot image was also recorded. The DAP for this procedure was 3.2 Gycm2. The amount of fluoroscopy time used during this procedure was 4.3 minutes. FINDINGS: Oral stage: Adequate function. Pharyngeal stage: There is reduced laryngeal elevation and adduction. Reduced tongue base retraction and pharyngeal squeeze. There is pharyngeal wall, piriform sinus and vallecular residue. There is laryngeal penetration with aspiration with both thin liquid and mildly thickened liquids in particular s pillover of the vallecular and piriform sinus residue. Of note the contrast outlines a multilobulated polypoid mass in the region of the epiglottis which appears to conform to the expected appearance based upon the appearance of a malignant appearing mass at this location seen on CT dated 06/10/2024. Cervical/esophageal stage: Adequate function. IMPRESSION: Pharyngeal dysphagia with laryngeal penetration and aspiration likely secondary to a malignant appearing mass involving the base of the tongue and the epiglottis as seen on CT from 06/10/2024. Please correlate with speech pathologist findings and specific feeding recommendations. Reviewed, dictated and finalized at location A. IMPRESSION: Pharyngeal dysphagia with laryngeal penetration and aspiration like ly secondary to a malignant appearing mass involving the base of the tongue and the epiglottis as seen on CT from 06/10/2024. Please correlate with speech path ologist findings and specific feeding recommendations.
[2024-12-21 16:32] VITALS: BP 152/85; PULSE 90; RESP 12; TEMP 36.8; O2SAT 100
--- NOTE | 2024-12-21 16:33 | ECG_ITS ---
Test Date: 2024-12-21 16:34:27 Measurements Intervals [place] Rate: 88 P: 73 MI: 136 QRS: 72 QRSD: 101 T: 91 QT: 347 QTc: 421 Interpretive Statements SINUS RHYTHM WITH OCCASIONAL VENTRICULAR PREMATURE COMPLEXES POSTERIOR INFARCT, ACUTE INFERIOR ST ELEVATION- CONSIDER ACUTE INFARCT RECIPROCAL ST DEPRESSION IN HIGH LATERAL LEADS ABNORMAL ECG No previous ECG available for comparison Electronically Signed On 12-21-2024 19:13:16 CDT by Bob Pitt D.O.
--- NOTE | 2024-12-21 16:42 | ECG_ITS ---
Test Date: 2024-12-21 16:44:10 Measurements Intervals [place] Rate: 91 P: 71 MT: 136 QRS: 73 QRSD: 102 T: 92 QT: 339 QTc: 418 Interpretive Statements SINUS RHYTHM POSTERIOR INFARCT, ACUTE INFERIOR ST ELEVATION- CONSIDER ACUTE INFARCT RECIPROCAL ST DEPRESSION IN HIGH LATERAL LEADS ABNORMAL ECG Compared to ECG 12/21/2024 16:34:27 NO SIGNIFICANT CHANGE Electronically Signed On 12-21-2024 19:12:27 CDT by Bob Pitt D.O.
[2024-12-21 16:54] LABS: Hematocrit 29.4 % (42.0-52.0); Hemoglobin 9.4 g/dL (14.0-18.0); Mean Corpuscular HGB Conc 32.0 g/dl (32-36); Mean Corpuscular Hemoglobin 27.4 pg (26-34); Mean Corpuscular Volume 85.7 fl (80-100); Platelet Count Result 354 k/mm3 (150-375); Red Blood Count 3.43 M/mm3 (4.6-6.20); White Blood Count 16.6 K/mm3 (4.5-10.0)
--- NOTE | 2024-12-21 16:54 | ED_ITS ---
HPI - General Adult General Chief complaint: Chest Pain Stated complaint: CP Time Seen by Provider: 12/21/24 16:39 History of Present Illness HPI narrative: patient is a 62-year-old gentleman presents emergency department chief complaint of chest pain. Patient received nitroglycerin and fentanyl prior to arrival patient reports no prior history of cardiac history but does report that he has history throat cancer patient states that he is not currently doing any kind of treatment for the cancer but does wish evaluation and treatment patient reports pain started about 45 minutes to an hour ago reports that it is pressure Related Data Home Medications ?Medication ?Instructions ?Recorded ?Confirmed ?Last Taken ?Type lisinopril 20 mg tablet 20 mg PO DAILY 11/29/24 08/0 09/25 Unknown History triamcinolone acetonide 0.1 % 1 applic topical BID 12/06/24 Unknown History topical ointment Allergies Allergy/AdvReac Type Severity Reaction Status Date / Time No Known Allergies Allergy Verified 12/06/24 08:51 Review of Systems 2 Review of Systems: A 10 system review of systems was completed on the patient and is negative except for what is stated in the HPI. Nursing and ancillary documentation was reviewed. [facility]LY [facility], [facility]1983 Surgical History Surgical History H/O lymph node excision Family History Family History Mother Hypertension Family history of coronary artery disease Sibling Hypertension Cerebrovascular accident Social History Social History Smoking status: Former smoker Smoking end date: 05/04/14 Alcohol intake: current Substance use type: does not use Living arrangements: with family Spiritual care concerns: No Exam 2 Narrative: GENERAL: thin, cachectic HEAD: Normocephalic, atraumatic. EYES: PERRLA and EOMI. ENT: Nares clear, no rhinorrhea or epistaxis. Mucous membranes moist. NECK: Supple. CHEST: Clear to auscultation. No respiratory distress. HEART: Regular rate and rhythm. No murmur heard. Normal peripheral pulses. ABDOMEN: Soft, nontender, nondistended, normal active bowel sounds. EXTREMITIES: Normal range of motion. No edema. SKIN: Warm, dry, no rash. NEURO: No focal deficits. Alert and oriented x3. PSYCH: Normal mood and affect. Course Vital Signs Vital signs: Vital Signs Temperature 36.8 C 12/21/24 16:32 Pulse Rate 90 12/21/24 16:32 Respiratory Rate 12 12/21/24 16:32 Blood Pressure 152/85 H 12/21/24 16:32 Pulse Oximetry 100 12/21/24 16:32 Temperature 36.8 C 12/21/24 16:32 Pulse Rate 90 12/21/24 16:32 Respiratory Rate 12 12/21/24 16:32 Blood Pressure 152/85 H 12/21/24 16:32 Pulse Oximetry 100 12/21/24 16:32 Medical Decision Making MDM Narrative Medical decision making narrative: differential diagnosis includes ST-elevation HI, NSTEMI, pulmonary embolism, EKG was initially performed that showed possible ST-elevation HI this was immediately repeated that did confirm ST-elevation HI case was discussed with Interventional Cardiology Dr. Silva the patient was given heparin bolus and will be admitted to the section laborer for procedure Vital Signs Vital Signs: Vital Signs Temperature 36.8 C 12/21/24 16:32 Pulse Rate 90 12/21/24 16:32 Respiratory Rate 12 12/21/24 16:32 Blood Pressure 152/85 H 12/21/24 16:32 Pulse Oximetry 100 12/21/24 16:32 Temperature 36.8 C 12/21/24 16:32 Pulse Rate 90 12/21/24 16:32 Respiratory Rate 12 12/21/24 16:32 Blood Pressure 152/85 H 12/21/24 16:32 Pulse Oximetry 100 12/21/24 16:32 Lab Data 12/21/24 16:49 12/21/24 16:49 Labs: Lab Results 12/21/24 Range/Units 16:49 WBC Pending RBC Pending Hgb Pending Hct Pending MCV Pending MCH Pending MCHC Pending RDW Pending Plt Count Pending MPV Pending Immature Gran % (Auto) Pending Neut % (Auto) Pending Lymph % (Auto) Pending [place] % (Auto) Pending Eos % (Auto) Pending Baso % (Auto) Pending Lymph # (Auto) Pending [place] # (Auto) Pending Eos # (Auto) Pending Baso # (Auto) Pending Abs Immat Gran (auto) Pending Absolute Neuts (auto) Pending Absolute Nucleated RBC Pending Nucleated RBC % Pending PT Pending INR Pending APTT Pending Sodium Pending Potassium Pending Chloride Pending Carbon Dioxide Pending Anion Gap Pending BUN Pending Creatinine Pending Estim Creat Clear Calc Pending Estimated GFR Pending Glucose Pending Calcium Pending Total Bilirubin Pending AST Pending ALT Pending Alkaline Phosphatase Pending Troponin I Pending Total Protein Pending Albumin Pending Triglycerides Pending Cholesterol Pending LDL Cholesterol Direct Pending HDL Direct Pending Critical Care Time Critical Care Time Critical Care Time: Yes Total Critical Care Time: 35 Discharge Plan Discharge Clinical Impression: ST elevation (STEMI) myocardial infarction Patient Disposition: Still a Patient Condition: Stable Patient Language: Zambian Prescriptions: No Action lisinopril 20 mg tablet 20 mg PO DAILY Patient Comments: not taking triamcinolone acetonide 0.1 % ointment 1 applic topical BID Patient Comments: not taking scopolamine base 1 mg over 3 days patch 3 day 1 patch transdermal Q3D Qty: 10 3RF diltiazem HCl 60 mg capsule,extended release 12 hr 60 mg PO TID Qty: 90 3RF Follow-up/Referrals: Shmuel,Marcos Lake MD [Primary Care Provider, Unknown] Time of Disposition: 16:55
[2024-12-21] MEDS: ASPIRIN 81 MG CHEWABLE TABLET 324 MG (16:57)
[2024-12-21 17:06] LABS: Partial Thromboplastin Time 24.4 Seconds (22.3-36.8)
[2024-12-21 17:07] LABS: Alanine Aminotransferase 17 U/L (6-50); Albumin Level 4.2 g/dL (3.5-5.1); Alkaline Phosphatase 64 U/L (38-126); Anion Gap 10 mmol/L (4-12); Aspartate Amino Transferase 29 U/L (17-59); Bilirubin,Total 0.3 mg/dL (0.2-1.3); Blood Urea Nitrogen 20 mg/dL (9-20); Calcium 9.4 mg/dL (8.4-10.2); Carbon Dioxide 25 mmol/L (22-30); Chloride 101 mmol/L (98-107); Cholesterol 157 mg/dL (0-200); Estimated Glomerular Filt Rate > 60; Glucose 196 mg/dL (65-110); HDL Direct 60 mg/dL; INR 1.1; Potassium 4.1 mmol/L (3.4-5.0); Prothrombin Time 14.4 Seconds (11.1-14.7); Sodium 136 mmol/L (137-145); Total Protein 7.5 g/dL (6.3-8.2); Triglycerides 61 mg/dL (<150)
--- OUTSIDE RECORDS SUMMARY | 2024-12-21 17:07 | XMS_ITS | Clinical Summary ---
Author Organization [facility] Address [address] [place] [address] Phone Care Team Providers Care Medical Geneticist Name Role Phone Marcos Mi MD Primary Care Provider Hosea Varela MD Unavailable [phone] Guero Fernandez MD Unavailable Allergies No known active allergies Medications lisinopril [...] 10:31 AM CDT Height 180.3 cm (5' 11) 12/20/2020 10:31 AM CDT Body Mass Index 30.68 12/20/2020 10:31 AM CDT Plan of Treatment Health Maintenance Due Date Last Done Comments Hepatitis C Virus (HCV) Screening 1962 TdaP Immunization 1962 SARS-COV-2 Immunization (#1) 1967 Pneumococcal Immunization (5 0+ years) (1 of 2 - PCV) 1981 Zoster Immunization (1 of 2) 1981 Cologuard 2007 Colonoscopy 2007 Colorectal Cancer Screening 2007 Immunochemical Fecal Occult Blood 2007 Influenza Immunization (#1) 2025 Respiratory Syncytial Virus (RSV) Immunization (Adult) (1 - 1-dose 75+ series) 2037 Hepatitis B Immunization Aged Out No longer eligible based on patient's age to complete this topic Human Papillomavirus (HPV) Immunization Aged Out No longer eligible b ased on patient's age to complete this topic Meningococcal Immunization (ACWY) Aged Out No longer eligible based on patient's age to complete this topic Rotavirus Immunization Aged Out No lo nger eligible based on patient's age to complete this topic Insurance Care Teams Medical Geneticist Relationship Specialty Start Date End Date Marcos Mi MD PCP - General Internal Medicine 12/04/20 Hosea Varela MD [address] [place] [address] Consulting Physician Otolaryngology 12/18/20 Guero Fernandez MD [address] [place] [address] Consulting Physician Radiation Oncology 12/18/20
--- OUTSIDE RECORDS SUMMARY | 2024-12-21 17:07 | XMS_ITS | Clinical Summary ---
Author Organization [facility] Address [address] [address] Care Team Providers Care Sterile Preparation Technician Name Role Phone Marcos Mi MD Primary Care Provider [phone] Source Comments [facility],non-owned Affiliates and Associated Physician Practices is amultiple site organization consisting of ambulatory clinics and hospital sitesin [place], [place], [place] and [place]. This disclosure is being madepursuant to the Care Everywhere program and may not contain all information available regarding this patient. Last updated 18.[facility] Allergies No known active allergies Medications * Be aware that medications may not be up to date on this document. Alwaysverify current medications with the patient. 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 Staging:Clinical stage from 07/19/2024:Stage III(cT3, cN3, cM0, p16+) - Signed by Napoleon Estevez MD on 07/26/2024 Social History Tobacco Use Types Packs/Day Years Used Date Smoking Tobacco: Some Days Cigarettes Smokeless Tobacco: Never Tobacco Cessation:Ready to Q uit: Not Asked; Counseling Given: Not Answered Alcohol Use Standard Drinks/Week Comments Yes 1 (1 standard drink = 0.6 oz pur e alcohol) social Sex and Gender Information Value Date Recorded Sex Assigned at Not on file Legal Sex Male 9:38 AM DIRECTOR OPERATING ROOM Gender Identity Not on file Sexual Orientation Not on file Last Filed Vital Signs Vital Sign Reading Time Taken Comments Blood Pressure 162/92 07/13/2024 9:40 AM CDT Pulse 92 07/13/2024 9:40 AM CDT Temperature - - Respiratory Rate - - Oxygen Saturation - - Inhaled Oxygen Concentration - - Weight 65.8 kg (145 lb) 07/13/2024 9:40 AM CDT Height 180.3 cm (5' 11) 07/13/2024 9:40 AM CDT Body Mass Index 20.22 07/13/2024 9:40 AM CDT Plan of Treatment Health Maintenance Due Date Last Done Comments COLOGUARD (AGES 45-75) - COL ON CA SCREENING 1962 COLON MONITORING 1962 COLONOSCOPY - COLON CA SCREENING 1962 CT COLONOGRAPHY - COLON CA SCREENING 1962 Colorectal Cancer Screening 1962 FIT - COLON CA SCREENING 1962 FLEX SIG - COLON CA SCREENING 1962 LIPID TESTING 1962 HIV SCREENING 1977 HEPATITIS C SCREENING 03/11/1980 DTAP/TDAP/TD VACCINES (1 - Tdap) 1981 PNEUMOCOCCAL VACCINE 50+ (1 of 2 - PCV) 1981 ZOSTER VACCINE (1 of 2) 2012 COVID-19 VACCINE (1 - 2023-2 5 season) 2024 DEPRESSION SCREENING 05/04/2024 INFLUENZA VACCINE (#1) 2025 Respiratory Syncytial Virus (RSV) Vaccine Pt: or over 60 yrs (1 - 1-dose 75+ series) 2037 HEPATITIS B VACCINE Aged Out No longe r eligible based on patient's age to complete this topic HIB VACCINE Aged Out No longer eligi ble based on patient's age to complete this topic HPV VACCINE Aged Out No longer eligi ble based on patient's age to complete this topic MENINGOCOCCAL (Group B) VACC INE SHARED DECISION-MAKING Aged Out No longer eligibl e based on patient's age to complete this topic MENINGOCOCCAL GROUPS A/C/Y/W VACCINE Aged Out No longer eligible b ased on patient's age to complete this topic Insurance [address] Care Teams Sterile Preparation Technician Relationship Specialty Start Date End Date Marcos Mi MD [address] [place] [address] PCP - General Internal Medicine 07/08/24
[2024-12-21 17:20] LABS: Band Neutrophils Percent 5 % (0-6); Basophils Absolute Manual 0.16 K/mm3 (0.0-0.1); Basophils Percent Manual 1 % (0-1); Lymphocytes Absolute Manual 0.49 K/mm3 (1.1-4.5); Lymphocytes Percent Manual 3.0 % (18-44); Monocytes Absolute Manual 0.33 K/mm3 (0.1-0.90); Monocytes Percent Manual 2 % (3-9); Neutrophils Absolute Manual 15.60 K/mm3 (1.3-6.7); Neutrophils Percent Manual 89 % (46-73); Total Cells Counted 100
[2024-12-21 17:21] LABS: Hypochromasia 1+; Schistocytes None Seen
[2024-12-21 17:23] LABS: Troponin I 0.144 ng/mL (0.000-0.034)
[2024-12-21 18:06] LABS: MRSA (PCR) NOT DETECTED (NOT DETECTE)
[2024-12-21 19:05] VITALS: BMI 15.5
--- NOTE | 2024-12-21 19:05 | PC.NURSE ---
This patient, Ron Orozco, was admitted to [facility]. Patient/family oriented to hospital policies and general routines including ID bracelet, bed and alarms, visiting hours, pain management, procedures, bathroom and other care routines, personal items, smoking policy, room service/diet, and visiting hours. Information on how to activate the Rapid Response Team has been discussed. Patient/Family are encouraged to report perceived risks to care and to ask questions if they do not understand what they are told or what they should do.
--- NOTE | 2024-12-21 19:42 | WPDMODSED ---
Moderate Sedation Note-Pt Data Patient Data Diagnosis: Inf STEMI Present Complaint: 64 year old gentleman with CA base of the tongue comes in with inf STEMI Allergies Allergy/AdvReac Type Severity Reaction Status Date / Time No Known Allergies Allergy Verified 12/06/24 08:51 Home Medications ?Medication ?Instructions ?Recorded ?Confirmed ?Type diltiazem HCl 60 mg 60 mg PO TID #90 caps 11/29/24 12/06/24 Rx capsule,extended release 12 hr lisinopril 20 mg tablet 20 mg PO DAILY 11/29/24 12/06/24 History scopolamine base 1 mg over 3 days 1 patch transdermal Q3D #10 ea 11/29/24 12/06/24 Rx transdermal patch triamcinolone acetonide 0.1 % 1 applic topical BID 11/29/24 12/06/24 History topical ointment Current Medications: Active Medications Heparin Sodium (Porcine) (Heparin Sodium 5,000 Units/Ml Vial) 0 units IV PUSH PRN PRN PRN Reason: aPTT less than 55 seconds Heparin Sodium (Porcine) (Heparin Sodium 5,000 Units/Ml Vial) 0 units IV PUSH PRN PRN PRN Reason: aPTT 55 - 70 seconds Miscellaneous Information (Please Enter Patient Height And Weight For Medication Dosing) 1 each XX CLARIFY VEE Stop: 01/21/25 00:00 Sedation/Anesthesia: No previous sedation/anesthesia problems (including family history). [facility] Surgical History Surgical History H/O lymph node excision Family History Family History Mother Hypertension Family history of coronary artery disease Sibling Hypertension Cerebrovascular accident Social History Social History Smoking status: Former smoker Smoking end date: 05/04/14 Alcohol intake: current Substance use type: does not use Living arrangements: with family Spiritual care concerns: No Mod Sed Physical Exam Physical Exam Pre Procedural Exam: Normal: Appearance (uncomfortable), Eyes, Ears, Nose, Neck (Large nodular mass in the right side of the neck), Neuro Exam, Abdomen, Liver, Kidneys, Spleen, Breasts, Genitalia, Extremities and Skin Hours since solid foods: 6 Hours since liquid intake: 6 Mallampati Classification: class III (Unable to assess clearly) Internal Medicine - PN: Obj Da Vital Signs Vital Signs: Vital Signs - 24 hr 12/21/24 16:32 12/21/24 17:02 Temperature 36.8 C Pulse Rate 90 Respiratory Rate 12 Blood Pressure 152/85 H Pulse Oximetry 100 Oxygen Delivery Room Air Meds/Results Medications: Active Medications Generic Name Dose Route Start Last Admin Trade Name Freq PRN Reason Stop Dose Admin Heparin Sodium (Porcine) 0 units 12/21/24 16:49 Heparin Sodium 5,000 Units/Ml Vial IV PUSH PRN PRN aPTT less than 55 seconds Heparin Sodium (Porcine) 0 units 12/21/24 16:49 Heparin Sodium 5,000 Units/Ml Vial IV PUSH PRN PRN aPTT 55 - 70 seconds Miscellaneous Information 1 each 12/22/24 00:01 Please Enter Patient Height And Weight For Medication Dosing XX 01/21/25 00:00 CLARIFY VEE Radiology Results: ITS Impressions Chest X-Ray 12/21/24 17:03 IMPRESSION: 1: NO ACUTE CARDIOPULMONARY DISEASE. 2. There are a few distended air-filled loops of bowel in the upper abdomen. Consider dedicated x-rays of the abdomen for further assessment Labs 12/21/24 16:49 12/21/24 16:49 Labs: Laboratory Results - last 24 hr 12/21/24 12/21/24 12/21/24 16:49 16:53 18:15 WBC 16.6 H RBC 3.43 L Hgb 9.4 L Hct 29.4 L MCV 85.7 MCH 27.4 MCHC 32.0 RDW 13.6 Plt Count 354 MPV 8.9 Immature Gran % (Auto) Not Reportable Neut % (Auto) Not Reportable Lymph % (Auto) Not Reportable [place] % (Auto) Not Reportable Eos % (Auto) Not Reportable Baso % (Auto) Not Reportable Lymph # (Auto) Not Reportable [place] # (Auto) Not Reportable Eos # (Auto) Not Reportable Baso # (Auto) Not Reportable Abs Immat Gran (auto) Not Reportable Absolute Neuts (auto) Not Reportable Absolute Nucleated RBC Not Reportable Total Counted 100 Neutrophils % (Manual) 89 H Band Neutrophils % 5 Lymphocytes % (Manual) 3.0 L Monocytes % (Manual) 2 L Basophils % (Manual) 1 Nucleated RBC % Not Reportable Abs Neuts (Manual) 15.60 H Abs Lymphs (Manual) 0.49 L Abs Monocytes (Manual) 0.33 Abs Basophils (Manual) 0.16 H Platelet Estimate Adequate Clumped Platelets Present Hypochromasia 1+ Schistocytes None seen PT 14.4 INR 1.1 APTT 24.4 Activ Coag Time Kaolin 193 H Sodium 136 L Potassium 4.1 Chloride 101 Carbon Dioxide 25 Anion Gap 10 BUN 20 Creatinine 0.70 Estim Creat Clear Calc Not Reportable Estimated GFR > 60 Glucose 196 H Calcium 9.4 Total Bilirubin 0.3 AST 29 ALT 17 Alkaline Phosphatase 64 Troponin I 0.144 H* Total Protein 7.5 Albumin 4.2 Triglycerides 61 Cholesterol 157 LDL Cholesterol Direct 66 HDL Direct 60 Nasal MRSA (PCR) Not detected Blood Type O Positive Antibody Screen Negative ASA Classification/Sedation ASA Classification/Sedation ASA Class: IV Emergent: Yes Risks: Risks, benefits and alternatives explained and patient/family accepted plan for sedation. Patient re-evaluated immediately prior to sedation.
--- NOTE | 2024-12-21 19:46 | PM.CNCAR ---
Assessment and Plan Assessment and plan (1) ST elevation (STEMI) myocardial infarction: Code(s): I21.3 - ST elevation (STEMI) myocardial infarction of unspecified site Status: Acute Plan 1. Inferior STEMI 2. Hypertension 3. Former nonsmoker 4. 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 Infrequent episodes of hemoptysis 6. Atrial fibrillation -as documented above the patient was taken for emergent cardiac catheterization. He was unable to take the full dose of aspirin/Plavix -cardiac catheterization showed three-vessel disease; which included a 100% occluded, heavily calcified mid RCA which was the culprit for presentation -We performed a POBA of the heavily calcified mid RCA and restored DAKOTA 3 blood flow with residual 70% stenosis -post POBA his chest pain resolved, the patient was hemodynamically stable and was transferred to the ICU -I had another extensive discussion with him and his family regarding further plan of action in the light of heavily calcified vessels with significant stenosis in the LAD, circumflex and RCA -the discussion included the need for revascularization of his vessels. The best modality to revascularize him would be CABG but he most likely is not a candidate for it because of uncertain prognosis of his malignancy. In terms of PCI he will need atherectomy followed by KYLIE placement in all 3 coronary beds. What complicates this situation is the likelihood of him bleeding from his malignant mass and his inability to take DAPT. -after discussion the patient agreed to consider PEG tube placement, to take the DAPT and to be on heparin infusion for the next 24 hours. -further revascularization with PCI will be decided after he remains stable on the DAPT and after PEG tube placement -he understood the risk of bleeding from his malignant mass while he is on DAPT and heparin -code status discussed with the patient, currently wants to be full code -consider palliative consult History of Present Illness History of Present Illness Consult date/time: 12/21/24 19:46 Reason For Visit: Stemi Narrative: Mr Ron Orozco is a 64 year old gentleman who is known to have a carcinoma of the base of the tongue discovered 5 years ago and has not been on any treatment. His UA is a former smoker and currently takes alcohol. He comes in with new onset chest pain. EKG shows inferior STEMI He was brought to the manager cath lab after his presentation with inferior STEMI in the ED. I evaluated him in the cardiac catheterization lab. He has not been able to swallow solid food for the past 6 months and is drinks only shakes. He is treating his malignancy with natural therapy does not believe in medications. Of note he is had intermittent episodes of hemoptysis, last 1 being 2 weeks ago. He usually coughs out congealed blood. He has not seen a physician for the past 5 years. I had an extensive discussion with him and his regarding further plan of action. I discussed with them in detail regarding the need for anti-platelet agents in case of PCI is performed. We also discussed the risk off bleeding from the malignant mass with the administration of heparin, aspirin and clopidogrel. We also discussed the need and for mechanical ventilation and the possible difficulty in intubation with his mass. The understood the risk and agreed to proceed with a cardiac catheterization and possible PCI if needed. In the manager cath lab we crushed aspirin and Plavix were him for him to be able to swallow it. He was unable to swallow it because of the bitter taste and had an episode of vomiting. We along with the patient decided not to place a KYLIE and just do a balloon angioplasty and restored blood glen. Subsequently we proceeded with a cardiac catheterization. Review of Systems Review of Systems: A 10 system review of systems was completed on the patient and is negative except for what is stated in the HPI. Nursing and ancillary documentation was reviewed. [facility] Surgical History Surgical History H/O lymph node excision Family History Family History Mother Hypertension Family history of coronary artery disease Sibling Hypertension Cerebrovascular accident Social History Social History Smoking status: Former smoker Smoking end date: 05/04/14 Alcohol intake: current Substance use type: does not use Living arrangements: with family Spiritual care concerns: No Meds Home Medications and Allergies Home Medications ?Medication ?Instructions ?Recorded ?Confirmed ?Type diltiazem HCl 60 mg 60 mg PO TID #90 caps 11/29/24 12/06/24 Rx capsule,extended release 12 hr lisinopril 20 mg tablet 20 mg PO DAILY 11/29/24 12/06/24 History scopolamine base 1 mg over 3 days 1 patch transdermal Q3D #10 ea 11/29/24 12/06/24 Rx transdermal patch triamcinolone acetonide 0.1 % 1 applic topical BID 11/29/24 12/06/24 History topical ointment Allergies Allergy/AdvReac Type Severity Reaction Status Date / Time No Known Allergies Allergy Verified 12/06/24 08:51 Vital Signs Vital Signs - 24 hr 12/21/24 16:32 12/21/24 17:02 Temperature 36.8 C Pulse Rate 90 Respiratory Rate 12 Blood Pressure 152/85 H Pulse Oximetry 100 Oxygen Delivery Room Air Exam Narrative: GENERAL: thin, cachectic HEAD: Normocephalic, atraumatic. EYES: PERRLA and EOMI. ENT: Nares clear, no rhinorrhea or epistaxis. Mucous membranes moist. NECK: Supple. Large nodular mass on the right side of the neck CHEST: Clear to auscultation. No respiratory distress. HEART: Regular rate and rhythm. No murmur heard. Normal peripheral pulses. ABDOMEN: Soft, nontender, nondistended, normal active bowel sounds. EXTREMITIES: Normal range of motion. No edema. SKIN: Warm, dry, no rash. NEURO: No focal deficits. Alert and oriented x3. PSYCH: Normal mood and affect. Results Labs and Meds 12/21/24 16:49 12/21/24 16:49 Lab results: Cardiac Enzymes 12/21/24 Range/Units 16:49 AST 29 (17-59) U/L Troponin I 0.144 H* (0.000-0.034) ng/mL Coagulation 12/21/24 Range/Units 16:49 PT 14.4 (11.1-14.7) Seconds APTT 24.4 (22.3-36.8) Seconds Lipids 12/21/24 Range/Units 16:49 Triglycerides 61 (<150) mg/dL Cholesterol 157 (0-200) mg/dL CBC 12/21/24 Range/Units 16:49 WBC 16.6 H (4.5-10.0) K/mm3 RBC 3.43 L (4.6-6.20) M/mm3 Hgb 9.4 L (14.0-18.0) g/dL Hct 29.4 L (42.0-52.0) % Plt Count 354 (150-375) k/mm3 Lymph # (Auto) Not Reportable [place] # (Auto) Not Reportable Eos # (Auto) Not Reportable Baso # (Auto) Not Reportable Comprehensive Metabolic Panel 12/21/24 Range/Units 16:49 Sodium 136 L (137-145) mmol/L Potassium 4.1 (3.4-5.0) mmol/L Chloride 101 (98-107) mmol/L Carbon Dioxide 25 (22-30) mmol/L BUN 20 (9-20) mg/dL Creatinine 0.70 (0.7-1.3) mg/dL Glucose 196 H (65-110) mg/dL Calcium 9.4 (8.4-10.2) mg/dL AST 29 (17-59) U/L ALT 17 (6-50) U/L Alkaline Phosphatase 64 (38-126) U/L Total Protein 7.5 (6.3-8.2) g/dL Albumin 4.2 (3.5-5.1) g/dL
[2024-12-21 20:00] VITALS: BP 100/66; PULSE 126; PULSE 132; RESP 19; TEMP 36.4; O2SAT 100
--- NOTE | 2024-12-21 20:08 | WPDCARDPROC ---
Cardiac Cath Procedure Note Date of procedure:: 12/21/24 Performing physician:: Li Silva MD Indication:: Inferior STEMI Brief clinical history:: Mr Ron Orozco is a 64 year old gentleman who is known to have a carcinoma of the base of the tongue discovered 5 years ago and has not been on any treatment. His UA is a former smoker and currently takes alcohol. He comes in with new onset chest pain. EKG shows inferior STEMI He was brought to the [facility] and food laboratory assistant after his presentation with inferior STEMI in the ED. I evaluated him in the cardiac catheterization lab. He has not been able to swallow solid food for the past 6 months and is drinks only shakes. He is treating his malignancy with natural therapy does not believe in medications. Of note he is had intermittent episodes of hemoptysis, last 1 being 2 weeks ago. He usually coughs out congealed blood. He has not seen a physician for the past 5 years. I had an extensive discussion with him and his regarding further plan of action. I discussed with them in detail regarding the need for anti-platelet agents in case of PCI is performed. We also discussed the risk off bleeding from the malignant mass with the administration of heparin, aspirin and clopidogrel. We also discussed the need and for mechanical ventilation and the possible difficulty in intubation with his mass. The understood the risk and agreed to proceed with a cardiac catheterization and possible PCI if needed. In the dairy and food laboratory assistant we crushed aspirin and Plavix were him for him to be able to swallow it. He was unable to swallow it because of the bitter taste and had an episode of vomiting. We along with the patient decided not to place a KYLIE and just do a balloon angioplasty and restored blood glen. Subsequently we proceeded with a cardiac catheterization. Procedure Procedure performed:: 1. Right radial artery access, 5-6 fr sheath 2. Ultrasound-guided right femoral artery access, 6 Fr sheath 3. Left heart catheterization 4. Coronary angiography 5. Successful POBA of 100% occluded heavily calcified mid RCA, residual stenosis 70%. DAKOTA 3 flow Sedation/Medication given:: Versed 1 mg Fentanyl 25 mcg Access site:: Right radial artery Right femoral artery Estimated blood loss:: 5-10 cc Procedure note:: After an extensive discussion with the patient and his family as documented in the H and P note the patient was brought to the dairy and food laboratory assistant. Informed consent signed and placed in the chart. Prepped and draped in usual sterile fashion. 2% lidocaine injected subcutaneously in right wrist area. 22-gauge venipuncture catheter used to access the right radial artery under ultrasound guidance. 6-FR slender sheath placed in right radial artery. Nitroglycerine and Verapamil were given intraarterial through the sheath. Versacore wire advanced under fluoroscopy 5F FL 4 diagnostic catheter engaged Left Main Coronary Artery. 5F FR 4 diagnostic catheter engaged Right Coronary Artery Multiple orthogonal angiogram obtained and reviewed 5F Pigtail diagnostic catheter crossed aortic valve to obtain LVEDP, LV angiogram deferred. Unable to traverse across his brachial vessels because of severe vasospasm with a 6 Faroese guide catheter we decided to switch to a femoral access. POBA was performed after intravenous heparin. 6 Faroese JR4 guide was used to engage the RCA ostium; we were unable to engage with a 6F AL 0.75. A run-through wire was used to cross the 100% occluded mid RCA. A elmer wire was used to help provide support. Over was performed and DAKOTA 3 flow was restored with residual 70% stenosis. The angioseal malfunctioned and manual pressure was used to achieve hemostasis Findings:: 1. Left main; large caliber vessel with divides into LAD and circumflex branches 2. LAD; large caliber transapical vessel which gives rise to a moderate caliber diagonal artery. Heavily calcified vessel which has a 70-75% stenosis in the midportion. 3. LCX: Moderate caliber nondominant vessel which gives rise to small to moderate caliber OM1/OM2. Ostial circ has 70-80% stenosis followed by 75% stenosis in the mid circ. 4. RCA: Large caliber dominant vessel which is heavily calcified and has 100% mid RCA occlusion. PDA and PLV disease collaterals from the left system 5. LVEDP 31 mmhg; no significant LV-AO gradient on pullback Conclusion:: 1. Heavily calcified, three-vessel disease 2. 100% occluded, calcified mid RCA 3. Successful POBA of mid RCA, residual stenosis 70-75%. DAKOTA 3 Flow Assessment and Plan Assessment and plan (1) ST elevation (STEMI) myocardial infarction: Code(s): I21.3 - ST elevation (STEMI) myocardial infarction of unspecified site Status: Acute Plan 1. Inf STEMI 2. Post POBA of Benjamin -I had another extensive discussion with him and his family regarding further plan of action in the light of heavily calcified vessels with significant stenosis in the LAD, circumflex and RCA -the discussion included the need for revascularization of his vessels. The best modality to revascularize him would be CABG but he most likely is not a candidate for it because of uncertain prognosis of his malignancy. In terms of PCI he will need atherectomy followed by KYLIE placement in all 3 coronary beds. What complicates this situation is the likelihood of him bleeding from his malignant mass and his inability to take DAPT. -after discussion the patient agreed to consider PEG tube placement, to take the DAPT and to be on heparin infusion for the next 24 hours. -further revascularization with PCI will be decided after he remains stable on the DAPT and after PEG tube placement -he understood the risk of bleeding from his malignant mass while he is on DAPT and heparin -code status discussed with the patient, currently wants to be full code -consider palliative consult -aspirin 81 mg once daily -Plavix 75 mg once daily -both aspirin and Plavix to given today as well -metoprolol 25 mg twice daily -atorvastatin 80 mg once daily -1 dose of IV digoxin 0.5 mg once for his atrial fibrillation -nitro infusion if needed to decrease LVEDP
--- NOTE | 2024-12-21 20:12 | PC.NURSE ---
Pressure removed from femostop starting at this time. 50 mmHg starting pressure. Verbal order to remove 10 mmHg every [address] Copeland. 2011- 40 mmHg 2021- 30 mmHg 2031- 20 mmHg 2041- 10 mmHg 2051- 0 mmHg Scant bleeding noted at 2099. No hematoma present.
[2024-12-21 21:30] VITALS: PULSE 143
[2024-12-21] MEDS: DIGOXIN INJ 250 MCG/ML 2 ML AMP (*BKC) 500 MCG IV PUSH (21:30)
[2024-12-21] MEDS: ATORVASTATIN 40 MG TABLET 80 MG PO (21:30)
[2024-12-21] MEDS: METOPROLOL TARTRATE 25 MG TABLET PO (21:30)
[2024-12-21] MEDS: ASPIRIN 81 MG CHEWABLE TABLET PO (21:30)
[2024-12-21] MEDS: CLOPIDOGREL BISULFATE 75 MG TABLET PO (21:30)
[2024-12-21 22:00] VITALS: BP 121/93; PULSE 138
[2024-12-21] MEDS: HEPARIN SOD/D5W 100 UNITS/ML 25,000 UNITS/250 ML BAG 6 UNITS IV CONT (22:00)
--- NOTE | 2024-12-21 22:50 | PC.NURSE ---
Deflation of TR starting at this time. 18 ml of air inflated into TR in laborer tanbark. 3 ml removed - 2250 3 ml removed - 2305 3 ml removed - 2320 3 ml removed - 2335 3 ml removed - 2350 3 ml removed - 0005 No bleeding noted. Radial pulses bounding and present. Capillary refill less than 2 second. No hematoma present or complaints of pain or discomfort. Arm board remains in place.
[2024-12-22] VITALS (16 sets, daily range): BP systolic 102–137; BP diastolic 53–80; PULSE 57–79; RESP 12–23; TEMP 36.9–37.2; O2SAT 95–100; BMI 15.5
[2024-12-22 01:28] LABS: Partial Thromboplastin Time 54.7 Seconds (22.3-36.8)
[2024-12-22 01:41] LABS: Troponin I 25.900 ng/mL (0.000-0.034)
[2024-12-22 05:24] LABS: Hematocrit 27.7 % (42.0-52.0); Hemoglobin 8.7 g/dL (14.0-18.0); Mean Corpuscular HGB Conc 31.4 g/dl (32-36); Mean Corpuscular Hemoglobin 27.3 pg (26-34); Mean Corpuscular Volume 86.8 fl (80-100); Platelet Count Result 236 k/mm3 (150-375); Red Blood Count 3.19 M/mm3 (4.6-6.20); White Blood Count 10.2 K/mm3 (4.5-10.0)
[2024-12-22 05:35] LABS: Anion Gap 7 mmol/L (4-12); Blood Urea Nitrogen 14 mg/dL (9-20); Calcium 9.3 mg/dL (8.4-10.2); Carbon Dioxide 26 mmol/L (22-30); Chloride 102 mmol/L (98-107); Estimated CRCL calculation 69 ml/min; Estimated Glomerular Filt Rate > 60; Glucose 96 mg/dL (65-110); Potassium 4.5 mmol/L (3.4-5.0); Sodium 135 mmol/L (137-145)
[2024-12-22 05:52] LABS: Troponin I 50.100 ng/mL (0.000-0.034)
--- NOTE | 2024-12-22 06:08 | ECG_ITS ---
Test Date: 2024-12-22 06:15:27 Measurements Intervals [place] Rate: 69 P: 77 MN: 172 QRS: 61 QRSD: 98 T: -41 QT: 390 QTc: 418 Interpretive Statements SINUS RHYTHM WITH OCCASIONAL VENTRICULAR PREMATURE COMPLEXES INFERIOR INFARCT, AGE INDETERMINATE ANTEROLATERAL INFARCT, AGE INDETERMINATE BASELINE ARTIFACT- I, II, III, AVR, AVL, V1 ABNORMAL ECG Compared to ECG 12/21/2024 16:44:10 STEMI NO LONGER PRESENT Electronically Signed On 12-22-2024 07:35:50 CDT by Bob Pitt D.O.
[2024-12-22 06:36] LABS: Magnesium 2.0 mg/dL (1.6-2.3)
[2024-12-22 08:05] LABS: Partial Thromboplastin Time 114.3 Seconds (22.3-36.8)
[2024-12-22] MEDS: ASPIRIN 81 MG CHEWABLE TABLET PO (08:47)
[2024-12-22] MEDS: CLOPIDOGREL BISULFATE 75 MG TABLET PO (08:47)
[2024-12-22] MEDS: METOPROLOL TARTRATE 25 MG TABLET PO ×2 (08:47→21:04)
--- NOTE | 2024-12-22 09:59 | WPDCNINT ---
Assessment and Plan Assessment and plan (1) ST elevation (STEMI) myocardial infarction: Code(s): I21.3 - ST elevation (STEMI) myocardial infarction of unspecified site Status: Acute Assessment and Plan: Patient presented with STEMI he does have history of hyperlipidemia and hypertension although does not take any medications at home. Due to his active malignancy with risk of bleeding decision was made by student career development specialist do not insert any drug-eluting stent. Cardiac catheterization showed multivessel coronary disease he was able to balloon angioplasty 100% occluded mid RCA. After discussion of risks and benefits with the patient patient was started on heparin infusion and dual antiplatelet therapy. Patient now chest pain-free Echo is ordered and pending Patient will get PEG tube so that he can take his pills consistently Telemetry monitoring Statin and metoprolol (2) Dysphagia: Qualifiers: Dysphagia type: oropharyngeal phase Qualified Code(s): R13.12 - Dysphagia, oropharyngeal phase Code(s): R13.10 - Dysphagia, unspecified Status: Acute Assessment and Plan: Patient has had dysphagia and significant malnutrition. Patient initially was evaluated and scheduled for a PEG tube insertion but he changes mind but at this point now he is agreeable and wants to proceed with PEG tube insertion. I will consult GI for PEG tube insertion. 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 He had resection 5 years ago after that cancer returned. He was seen at [facility] and repeat biopsy was performed which was confirmed to be malignant. Patient was recommended radical resection versus chemoradiation. Patient decided to do neither and try natural therapy. Today after my discussion with the patient and his they are telling me that they are going to proceed with proton therapy at [facility] although they do not have any appointment yet but they have obtain information from [facility]. They are not interested in any significant evaluation or treatment at this point at [facility] also they also do not want to be transferred to [facility] or [facility] CT scan done in June of this year showed IMPRESSION: 1. Mass involving the right palatine tonsil, base of tongue, tongue, and floor of mouth, consistent with squamous cell carcinoma. 2. Bilateral cervical lymphadenopathy, consistent with metastatic disease. 3. 4 mm pulmonary nodule, new from 09/27/2020, which is indeterminate for metastatic disease. I will obtain a CT scan of the neck to further evaluate the mass and airway. Both me and the student career development specialist have have discussed increased risk of from the tumor with heparin infusion and will antiplatelet therapy. Also discussed due to location of his cancer any bleeding will definitely compromises airway and may be life-threatening. They both understand the risks at this time and want to continue with treatment for his heart. (4) Malnutrition: Code(s): E46 - Unspecified protein-calorie malnutrition Status: Acute Assessment and Plan: PEG tube insertion for feeding, consult dietitian (5) Hyperlipidemia: Code(s): E78.5 - Hyperlipidemia, unspecified Status: Acute Assessment and Plan: Continue statin (6) Essential hypertension: Code(s): I10 - Essential (primary) hypertension Status: Acute Assessment and Plan: Patient states he has history of hypertension but is currently not taking any medications. He has been started on metoprolol. Depending on his blood pressures and echo results, will add ARB are CESAR-inhibitor Plan DVT prophylaxis -currently on heparin infusion Stress ulcer prophylaxis -PPI Code Status - Full Code I spoke to patient his updated them with current treatment plan and answered all their questions. Total Critical Care Time - 30 minutes Due to a high probability of clinically significant, life threatening deterioration, the patient required my highest level of preparedness to intervene emergently and I personally spent this critical care time directly and personally managing the patient. This critical care time included obtaining a history; examining the patient; pulse oximetry; ordering and review of studies; arranging urgent treatment with development of a management plan; evaluation of patient's response to treatment; frequent reassessment; and discussions with other providers. It was exclusive of separately billable procedures and treating other patients and teaching time. 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 Patient was diagnosed with cancer 5 years ago where he had a small surgery of removal. He states the cancer returned and he was referred by his ENT doctors to [facility]. Early this year he was re-evaluated and had a CT scan and a biopsy done at [facility] where he was offered option of either radical resection versus radiation and chemotherapy. He decided neither and wanted to try natural therapy and went home. Over time his voice has changed and he has had trouble swallowing and he was eating liquid or semi-solid food. He was also giving himself coffee enemas. He has draw significant amount of weight. At this time he is currently not taking any prescription medications. A month ago he was seen by his primary care was referred to GI for PEG tube placement. He was seen by GI physician office and a PEG tube insertion was scheduled. After few days he changes mind again and did not follow through with PEG tube insertion. He and his states that he are trying to go to [facility] to get proton therapy which they feel is better than regular radiation and do not want any other treatment or evaluation at this time for the cancer. They do not want to be transferred to [facility] either. They state that they will seek care at [facility] post proton therapy once discharged. Yesterday patient states that he started having chest pain which was 10 out 10 in the middle of chest sharp and he fell weak in his left arm. He also had nausea and vomited x1. He denies any shortness of breath sweating or palpitations with it. He states that this kind of pain he has been having intermittently in the recent past but sometime it gets better with burping or spontaneously. Review of system was positive constipation. He denies any hematochezia melena hemoptysis. He states sometimes when he coughs there is dark blood associated. His p.o. intake has been limited and is mostly semi-solid. He states he takes natural therapy pills which he pressures and mixes them with oral and eats them with spoon while sitting up All other systems were reviewed negative Review of Systems Review of Systems: All systems reviewed & are unremarkable except as noted in HPI and below (HPI) FOR[facility]LY [facility] Past Medical History Medical History (Updated 12/22/24 @ 10:18 by Farzad Carty MD) Hyperlipidemia Essential hypertension Tonsil cancer Dysphagia Surgical History Surgical History H/O lymph node excision Family History Family History Mother Hypertension Family history of coronary artery disease Sibling Hypertension Cerebrovascular accident Social History Social History Smoking status: Former smoker Tobacco type: cigars Smoking end date: 05/04/14 Alcohol intake: current Drinks per week: 1 Substance use type: marijuana Last use: 11/01/2024 Lack of Transportation: No Lack of Food: Never True Current Housing: I Have Housing Concerned About Future Housing: No Difficulty Paying Gas/Electric Bills: No Difficulty Paying for Meds: No Currently Unemployed: No Education: Decline to Answer Difficulty w/ Childcare or Family Care: No Living arrangements: with family Spiritual care concerns: No (Scientology) Meds Home Medications and Allergies Home Medications ?Medication ?Instructions ?Recorded ?Confirmed ?Type diltiazem HCl 60 mg 60 mg PO TID #90 caps 11/29/24 12/22/24 Rx capsule,extended release 12 hr scopolamine base 1 mg over 3 days 1 patch transdermal Q3D #10 ea 11/29/24 12/22/24 Rx transdermal patch Allergies Allergy/AdvReac Type Severity Reaction Status Date / Time No Known Allergies Allergy Verified 12/22/24 00:32 Vital Signs Vital Signs - 24 hr 12/21/24 16:32 12/21/24 17:02 12/21/24 20:00 Temperature 36.8 C 36.4 C L Pulse Rate 90 132 H Respiratory Rate 12 19 Blood Pressure 152/85 H 100/66 Pulse Oximetry 100 100 Oxygen Delivery Room Air 12/21/24 20:00 12/21/24 20:00 12/21/24 21:30 Temperature Pulse Rate 126 H 143 H Respiratory Rate Blood Pressure Pulse Oximetry Oxygen Delivery Room Air 12/21/24 21:30 12/21/24 22:00 12/21/24 22:00 Temperature Pulse Rate 143 H 138 H Respiratory Rate Blood Pressure 121/93 H Pulse Oximetry Oxygen Delivery 12/22/24 00:00 12/22/24 00:00 12/22/24 00:00 Temperature 37.0 C Pulse Rate 67 76 Respiratory Rate 19 Blood Pressure 123/80 Pulse Oximetry 99 Oxygen Delivery Room Air 12/22/24 02:00 12/22/24 02:00 12/22/24 04:00 Temperature 36.9 C Pulse Rate 70 70 66 Respiratory Rate 14 15 Blood Pressure 137/71 129/73 Pulse Oximetry 100 95 Oxygen Delivery 12/22/24 04:00 12/22/24 04:00 12/22/24 06:00 Temperature 37.0 C Pulse Rate 71 66 Respiratory Rate 15 Blood Pressure 132/77 Pulse Oximetry 99 Oxygen Delivery Room Air 12/22/24 06:00 12/22/24 08:47 Temperature Pulse Rate 66 79 Respiratory Rate Blood Pressure Pulse Oximetry Oxygen Delivery Exam Narrative: General: Pt is alert awake. Cachectic old male looks much older than his age Lungs/Chest: Trachea central Clear BS B/L, No crackles or wheezing. Cardiac: RRR. Normal S1 S2. No murmurs Circulation: Pedal pulses are intact and symmetrical. A right radial pulses palpable no swelling hematoma, small hematoma at the site of right femoral cardiac Abdomen: Normal bowel sounds.. Soft. NT. ND. Significantly thin and weight insert belly Extremities: No clubbing, cyanosis or edema. Warm : NAD Neurologic: Follows commands. Moves all 4 extremities PERRL Skin: No Rash HEENT: Large red mass which is firm under right mandible. Several firm lymph nodes palpable in neck all around Results Labs 12/22/24 05:09 12/22/24 05:09 Labs: Impressions Chest X-Ray 12/21/24 17:03 IMPRESSION: 1: NO ACUTE CARDIOPULMONARY DISEASE. 2. There are a few distended air-filled loops of bowel in the upper abdomen. Consider dedicated x-rays of the abdomen for further assessment Short CBC 12/21/24 12/22/24 Range/Units 16:49 05:09 WBC 16.6 H 10.2 H (4.5-10.0) K/mm3 Hgb 9.4 L 8.7 L (14.0-18.0) g/dL Hct 29.4 L 27.7 L (42.0-52.0) % Plt Count 354 236 (150-375) k/mm3 BMP 12/21/24 12/22/24 16:49 05:09 Sodium 136 L 135 L Potassium 4.1 4.5 Chloride 101 102 Carbon Dioxide 25 26 BUN 20 14 D Creatinine 0.70 0.68 L Glucose 196 H 96 Calcium 9.4 9.3 Cardiac Enzymes 12/21/24 12/22/24 12/22/24 Range/Units 16:49 01:08 05:09 Troponin I 0.144 H* 25.900 H* 50.100 H* D (0.000-0.034) ng/mL Liver Function 12/21/24 Range/Units 16:49 Total Bilirubin 0.3 (0.2-1.3) mg/dL AST 29 (17-59) U/L ALT 17 (6-50) U/L Alkaline Phosphatase 64 (38-126) U/L Albumin 4.2 (3.5-5.1) g/dL Quality VTE Prophylaxis VTE prophylaxis: pharmacologic ordered Hospitalist MIPS Advance Care Plan I have confirmed that the patient's Advanced Care Plan is present, code status is documented, or surrogate decision maker is listed in patient medical record.: Yes Medication Reconciliation I have utilized all available resources to obtain, update and review the patients current medications (includes all prescriptions, OTC, herbals, cannabis, and nutritional supplements).: Yes
--- NOTE | 2024-12-22 11:54 | P.CDI_ITS ---
CDI Query Clarification Request BMI: 15.6 Nutritional Diagnostic Statement: Please refer to the comprehensive nutrition assessment for further information. If you agree with diagnosis of Severe Protein Calorie Malnutrition as related to inadequate protein energy intake with increased protein-energy needs in setting of chronic disease (cancer) as evidenced by minimal oral intake for < 1-2 months; significant weight loss of 21%(30 ibs) in 3 months; severe muscle wasting (temporalis, clavicle, shoulder) and subcutaneous fat loss (facial cheeks, ribs). Please specify severity if known: * Mild * Moderate * Severe * Other/Unknown <Veronica Salinas RN - Last Filed: 12/22/24 11:55> Clarified Diagnosis Clarified Diagnosis: Severe malnutrition <Farzad Carty MD - Last Filed: 12/22/24 14:19>
--- NOTE | 2024-12-22 12:37 | P.PNCA_ITS ---
Progress Note: A&P Assessment and Plan (1) ST elevation (STEMI) myocardial infarction: Code(s): I21.3 - ST elevation (STEMI) myocardial infarction of unspecified site Status: Acute Plan 1. Inferior STEMI 2. Hypertension 3. Former nonsmoker 4. 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 Infrequent episodes of hemoptysis 6. Atrial fibrillation [facility] (12/21/2024) Post POBA of mRCA - Continue uninterrupted DAPT for now. Can hold AsA/plavix if PEG tube placement has been decided -aspirin 81 mg once daily -Plavix 75 mg once daily - Continue metoprolol 25 mg twice daily -Continue atorvastatin 80 mg once daily - I had another discussion with him and his regarding further plan of action in the light of heavily calcified vessels with significant stenosis in the LAD, circumflex and RCA. We discussed the plan for revascularization, modalities of revascularization. We discussed the ened for a PEG placemtn and determination of his prognosis prior to any aggressive revascularization attempt. - He understood the risk of bleeding from his malignant mass while he is on DAPT and heparin - Will keep him on heparin infusion if DAPT has to be stopped in case of PEG tube placement. Subjective Date/time seen: 12/22/24 12:37 Interval history: No chest pain No shortness of breaths On heparin infusion On aspirin/Plavix Hemoglobin stable no obvious bleeding Review of Systems Review of Systems: A 10 system review of systems was completed on the patient and is negative except for what is stated in the HPI. Nursing and ancillary documentation was reviewed. Exam Narrative: GENERAL: thin, cachectic HEAD: Normocephalic, atraumatic. EYES: PERRLA and EOMI. ENT: Nares clear, no rhinorrhea or epistaxis. Mucous membranes moist. NECK: Supple. Large nodular mass on the right side of the neck CHEST: Clear to auscultation. No respiratory distress. HEART: Regular rate and rhythm. No murmur heard. Normal peripheral pulses. ABDOMEN: Soft, nontender, nondistended, normal active bowel sounds. EXTREMITIES: Normal range of motion. No edema. SKIN: Warm, dry, no rash. NEURO: No focal deficits. Alert and oriented x3. PSYCH: Normal mood and affect. Objective Data Vital Signs Vital Signs: Vital Signs - 24 hr 12/21/24 16:32 12/21/24 17:02 12/21/24 20:00 Temperature 36.8 C 36.4 C L Pulse Rate 90 132 H Respiratory Rate 12 19 Blood Pressure 152/85 H 100/66 Pulse Oximetry 100 100 Oxygen Delivery Room Air 12/21/24 20:00 12/21/24 20:00 12/21/24 21:30 Temperature Pulse Rate 126 H 143 H Respiratory Rate Blood Pressure Pulse Oximetry Oxygen Delivery Room Air 12/21/24 21:30 12/21/24 22:00 12/21/24 22:00 Temperature Pulse Rate 143 H 138 H Respiratory Rate Blood Pressure 121/93 H Pulse Oximetry Oxygen Delivery 12/22/24 00:00 12/22/24 00:00 12/22/24 00:00 Temperature 37.0 C Pulse Rate 67 76 Respiratory Rate 19 Blood Pressure 123/80 Pulse Oximetry 99 Oxygen Delivery Room Air 12/22/24 02:00 12/22/24 02:00 12/22/24 04:00 Temperature 36.9 C Pulse Rate 70 70 66 Respiratory Rate 14 15 Blood Pressure 137/71 129/73 Pulse Oximetry 100 95 Oxygen Delivery 12/22/24 04:00 12/22/24 04:00 12/22/24 06:00 Temperature 37.0 C Pulse Rate 71 66 Respiratory Rate 15 Blood Pressure 132/77 Pulse Oximetry 99 Oxygen Delivery Room Air 12/22/24 06:00 12/22/24 08:00 12/22/24 08:00 Temperature Pulse Rate 66 64 64 Respiratory Rate 19 19 Blood Pressure 114/71 Pulse Oximetry 100 100 Oxygen Delivery Room Air 12/22/24 08:00 12/22/24 08:47 Temperature Pulse Rate 67 79 Respiratory Rate Blood Pressure Pulse Oximetry Oxygen Delivery Intake/Output Intake/Output: Intake & Output 12/19/24 12/20/24 12/21/24 12/22/24 23:59 23:59 23:59 23:59 Intake Total 240 Output Total 1175 Balance -935 Meds/Results Medications: Active Medications Generic Name Dose Route Start Last Admin Trade Name Freq PRN Reason Stop Dose Admin Acetaminophen 650 mg 12/22/24 00:53 Acetaminophen 325 Mg Tablet PO Q4H PRN Mild Pain (1-3) or Fever Aspirin 81 mg 12/22/24 08:00 12/22/24 08:47 Aspirin 81 Mg Chewable Tablet PO 81 mg DAILY@0800 VEE Administration Atorvastatin Calcium 80 mg 12/21/24 20:25 12/21/24 21:30 Atorvastatin 40 Mg Tablet PO 80 mg DAILY VEE Administration Clopidogrel Bisulfate 75 mg 12/22/24 08:00 12/22/24 08:47 Clopidogrel Bisulfate 75 Mg Tablet PO 75 mg DAILY@0800 VEE Administration Heparin Sodium (Porcine) 4,000 units 12/21/24 16:49 12/22/24 01:57 Heparin Sodium 5,000 Units/Ml Vial IV PUSH 4,000 units PRN PRN Administration aPTT less than 55 seconds Heparin Sodium (Porcine) 2,000 units 12/21/24 16:49 Heparin Sodium 5,000 Units/Ml Vial IV PUSH PRN PRN aPTT 55 - 70 seconds Heparin Sodium/Dextrose 25,000 units in 250 mls @ 7 mls/hr 12/21/24 20:20 12/22/24 08:15 Heparin Sodium/D5w 100 Units/Ml IV CONT 700 units/hr .Q24H VEE 7 mls/hr Protocol Titration 700 UNITS/HR Metoprolol Tartrate 25 mg 12/21/24 21:00 12/22/24 08:47 Metoprolol Tartrate 25 Mg Tablet PO 25 mg Q12HR VEE Administration Perflutren Lipid Microsphere 0 ml 12/22/24 09:57 Perflutren Lipid Microspheres 1.5 Ml Vial Diluted To 10 Ml Total Volume IV PUSH 12/25/24 09:57 ONCE PRN adequate visualization Protocol Radiology Results: ITS Impressions Chest X-Ray 12/21/24 17:03 IMPRESSION: 1: NO ACUTE CARDIOPULMONARY DISEASE. 2. There are a few distended air-filled loops of bowel in the upper abdomen. Consider dedicated x-rays of the abdomen for further assessment Labs Labs: Laboratory Results - last 24 hr 12/21/24 12/21/24 12/21/24 16:49 16:53 18:15 WBC 16.6 H RBC 3.43 L Hgb 9.4 L Hct 29.4 L MCV 85.7 MCH 27.4 MCHC 32.0 RDW 13.6 Plt Count 354 MPV 8.9 Immature Gran % (Auto) Not Reportable Neut % (Auto) Not Reportable Lymph % (Auto) Not Reportable Band[place] % (Auto) Not Reportable Eos % (Auto) Not Reportable Baso % (Auto) Not Reportable Lymph # (Auto) Not Reportable [place] # (Auto) Not Reportable Eos # (Auto) Not Reportable Baso # (Auto) Not Reportable Abs Immat Gran (auto) Not Reportable Absolute Neuts (auto) Not Reportable Absolute Nucleated RBC Not Reportable Total Counted 100 Neutrophils % (Manual) 89 H Band Neutrophils % 5 Lymphocytes % (Manual) 3.0 L Monocytes % (Manual) 2 L Basophils % (Manual) 1 Nucleated RBC % Not Reportable Abs Neuts (Manual) 15.60 H Abs Lymphs (Manual) 0.49 L Abs Monocytes (Manual) 0.33 Abs Basophils (Manual) 0.16 H Platelet Estimate Adequate Clumped Platelets Present Hypochromasia 1+ Schistocytes None seen PT 14.4 INR 1.1 APTT 24.4 Activ Coag Time Kaolin 193 H Sodium 136 L Potassium 4.1 Chloride 101 Carbon Dioxide 25 Anion Gap 10 BUN 20 Creatinine 0.70 Estim Creat Clear Calc Not Reportable Estimated GFR > 60 Glucose 196 H Calcium 9.4 Magnesium Total Bilirubin 0.3 AST 29 ALT 17 Alkaline Phosphatase 64 Troponin I 0.144 H* Total Protein 7.5 Albumin 4.2 Triglycerides 61 Cholesterol 157 LDL Cholesterol Direct 66 HDL Direct 60 Nasal MRSA (PCR) Not detected Blood Type O Positive Antibody Screen Negative 12/22/24 12/22/24 12/22/24 01:08 05:09 07:49 WBC 10.2 H RBC 3.19 L Hgb 8.7 L Hct 27.7 L MCV 86.8 MCH 27.3 MCHC 31.4 L RDW 13.6 Plt Count 236 MPV 9.1 Immature Gran % (Auto) Neut % (Auto) Lymph % (Auto) [place] % (Auto) Eos % (Auto) Baso % (Auto) Lymph # (Auto) [place] # (Auto) Eos # (Auto) Baso # (Auto) Abs Immat Gran (auto) Absolute Neuts (auto) Absolute Nucleated RBC Total Counted Neutrophils % (Manual) Band Neutrophils % Lymphocytes % (Manual) Monocytes % (Manual) Basophils % (Manual) Nucleated RBC % Abs Neuts (Manual) Abs Lymphs (Manual) Abs Monocytes (Manual) Abs Basophils (Manual) Platelet Estimate Clumped Platelets Hypochromasia Schistocytes PT INR APTT 54.7 H 114.3 H Activ Coag Time Kaolin Sodium 135 L Potassium 4.5 Chloride 102 Carbon Dioxide 26 Anion Gap 7 BUN 14 D Creatinine 0.68 L Estim Creat Clear Calc 69 Estimated GFR > 60 Glucose 96 Calcium 9.3 Magnesium 2.0 Total Bilirubin AST ALT Alkaline Phosphatase Troponin I 25.900 H* 50.100 H* D Total Protein Albumin Triglycerides Cholesterol LDL Cholesterol Direct HDL Direct Nasal MRSA (PCR) Blood Type Antibody Screen
--- NOTE | 2024-12-22 12:59 | PC.NURSE ---
Patient has left the unit for CT scan procedure and Modified Barium swallow study.
--- NOTE | 2024-12-22 14:03 | PC.NURSE ---
Patient has returned to floor from CT scan and Modified Barium swallow study.
[2024-12-22 14:45] LABS: Partial Thromboplastin Time 69.9 Seconds (22.3-36.8)
[2024-12-22] MEDS: ATORVASTATIN 40 MG TABLET 80 MG PO (15:01)
--- NOTE | 2024-12-22 15:36 | PCSTNOTE ---
Please refer to the Modified Barium Swallow Evaluation in the EMR. Ron is a 64 year old male who presents this admission with chest pain. 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 Pt has had a notable weight loss and states it is extremely effortful to eat and drink. He is receiving a PEG tube in the immediate future for a route for medications. Modified Barium Swallow Study orders were placed due to the concern for oral-pharyngeal dysphagia. Upon the time of the evaluation, pt reports that he typically eats soft foods in small bites with liquids. He states that it is effortful to eat and swallow. The pt's anatomy was remarkable for a cavity in the area of the right tonsil. Upon fluoro, a notable mass was seen. The radiologist described this as a lobular or polypoid mass in the region where the epiglottis is expected to be. This mass greatly impacted his ability to swallow effectively and no true epiglottis was visualized. PO trials included thin liquid barium, mildly thick barium, moderately thick barium, and barium pudding all via tsp. Across trials, the pt's oral stage was remarkable for piecemeal deglutition resulting in small volumes swallowed at one time. With trials of thin liquids and mildly thick liquids, the material was noted to coat the structures within the laryngeal vestibule. Residue was trace in appearance; however, large in comparison to the bolus size and impactful. Due to reduced lingual pressure and the notable mass in the laryngeal space reducing functional movement and clearance of material, residue was noted to not clear and trace aspiration was noted due to spillage into the laryngeal vestibule from the pyriform sinuses. This trace aspiration was SILENT and pt was unable to clear it with a cued cough. A chin tuck was attempted with mildly thick trials; however, was unsuccessful in eliminating penetration/aspiration or residue. With tsp trials of moderately thick liquids, residue was notably reduced to slight coating and only mild penetration was visualized. The pt was able to sense this penetration and clear it from the laryngeal vestibule with subsequent swallows. With the puree consistency, no penetration or aspiration was visualized with no notable pharyngeal residue. Solid trials were not attempted this date due to pt report of discomfort with solids. Due to significant effort required to swallow, even material that does not enter the airway, the pt will be unable to meet his nutritional needs orally. Non-oral nutrition should be utilized to meet his daily caloric needs. Recommendations: 1. NPO; Level 4 (puree) and Level 3 (moderately thick liquids) for pleasure feeds only. 2. Frequent observation with all meals, upright with PO, small bites/sips, take extra swallow between bites, no straws 3. ST will s/o due to the limited expected progress due to the mass impacting the pt's swallow function.
--- NOTE | 2024-12-22 15:39 | PC.NURSE ---
This patient, Ron Orozco, was transferred to [facility] in IMU. on 12/22/24 at 1520. Personal belongings sent with patient. Report given to JEANA Guadalupe Appropriate documentation sent with patient.
--- NOTE | 2024-12-22 17:33 | P.CONGI_ITS ---
Assessment and Plan Assessment and plan (1) Dysphagia: Qualifiers: Dysphagia type: oropharyngeal phase Qualified Code(s): R13.12 - Dysphagia, oropharyngeal phase Code(s): R13.10 - Dysphagia, unspecified Status: Acute Assessment and Plan: this is from advanced localized malignancy he has been losing weight probably we could place peg this thursday given recent cardiac event, still he is high risk and we need to discuss case with anesthesia- surveyor geophysical prospecting recommended heparin gtt probably for another 2 days or so, also would be ok to hold plavix if patient gets PEG (2) ST elevation (STEMI) myocardial infarction: Code(s): I21.3 - ST elevation (STEMI) myocardial infarction of unspecified site Status: Acute Assessment and Plan: treated with balloon and on meds now no more chest pain (3) Malnutrition: Code(s): E46 - Unspecified protein-calorie malnutrition Status: Acute (4) Anticoagulant long-term use: Code(s): Z79.01 - supervisor intermediates (current) use of anticoagulants Status: Acute (5) Tonsil cancer: Code(s): C09.9 - Malignant neoplasm of tonsil, unspecified Status: Acute GI Consult Note Consult date/time: 12/22/24 17:33 Reason for consult: dysphagia HPI: Ron Orozco is a 64 year old male who has been diagnosed with neck cancer 5 years ago where he had a small surgery of removal. Cancer returned and he was referred by his ENT doctors to [facility]. Early this year he was re-evaluated and had a CT scan and a biopsy done at [facility] where he was offered option of either radical resection versus radiation and chemotherapy. He decided neither. Over time his voice has changed and he has had trouble swallowing and he was eating liquid in fact he came to our office to discuss peg placement but was unsure about it. This time admitted for new onset of chest pain, severe with radiation to arm, also n/v x1. Due to his active malignancy with risk of bleeding decision was made by surveyor geophysical prospecting do not insert any drug-eluting stent. Cardiac catheterization showed multivessel coronary disease he was able to balloon angioplasty 100% occluded mid RCA. After discussion of risks and benefits with the patient patient was started on heparin infusion and dual antiplatelet therapy. He now would like to have PEG placement. Review of Systems 2 Constitutional: Constitutional: Reports lethargy and Reports weight loss Eyes: Eyes: Denies blurry vision ENT: Comments: voice change Cardiovascular: Cardiovascular: Reports chest pain Respiratory: Respiratory: Denies wheezing Gastrointestinal: Comments: dysphagia Genitourinary: Genitourinary: Denies dysuria Musculoskeletal: Musculoskeletal: Denies back pain Integumentary/Breasts: Skin/Breast: Denies rash Neurologic: Reports Abnormal speech present Psychiatric: Psychiatric: Denies behavioral changes [facility] Past Medical History Medical History (Updated 12/22/24 @ 17:37 by Ismael Rey MD) Anticoagulant long-term use Malnutrition Hyperlipidemia Essential hypertension Tonsil cancer Dysphagia Surgical History Surgical History H/O lymph node excision Family History Family History Mother Hypertension Family history of coronary artery disease Sibling Hypertension Cerebrovascular accident Social History Social History Smoking status: Former smoker Tobacco type: cigars Smoking end date: 05/04/14 Alcohol intake: current Drinks per week: 1 Substance use type: marijuana Last use: 11/01/2024 Lack of Transportation: No Lack of Food: Never True Current Housing: I Have Housing Concerned About Future Housing: No Difficulty Paying Gas/Electric Bills: No Difficulty Paying for Meds: No Currently Unemployed: No Education: Decline to Answer Difficulty w/ Childcare or Family Care: No Living arrangements: with family Spiritual care concerns: No Meds Home Medications and Allergies Home Medications ?Medication ?Instructions ?Recorded ?Confirmed ?Type diltiazem HCl 60 mg 60 mg PO TID #90 caps 12/22/24 Rx capsule,extended release 12 hr scopolamine base 1 mg over 3 days 1 patch transdermal Q3D #10 ea 11/29/24 12/22/24 Rx transdermal patch Allergies Allergy/AdvReac Type Severity Reaction Status Date / Time No Known Allergies Allergy Verified 12/22/24 00:32 Vital Signs Vital Signs - 24 hr 12/21/24 20:00 12/21/24 20:00 12/21/24 20:00 Temperature 97.5 F L Pulse Rate 132 H 126 H Respiratory Rate 19 Blood Pressure 100/66 Pulse Oximetry 100 Oxygen Delivery Room Air 12/21/24 21:30 12/21/24 21:30 12/21/24 22:00 Temperature Pulse Rate 143 H 143 H Respiratory Rate Blood Pressure 121/93 H Pulse Oximetry Oxygen Delivery 12/21/24 22:00 12/22/24 00:00 12/22/24 00:00 Temperature 98.6 F Pulse Rate 138 H 67 Respiratory Rate 19 Blood Pressure 123/80 Pulse Oximetry 99 Oxygen Delivery Room Air 12/22/24 00:00 12/22/24 02:00 12/22/24 02:00 Temperature Pulse Rate 76 70 70 Respiratory Rate 14 Blood Pressure 137/71 Pulse Oximetry 100 Oxygen Delivery 12/22/24 04:00 12/22/24 04:00 12/22/24 04:00 Temperature 98.5 F Pulse Rate 66 71 Respiratory Rate 15 Blood Pressure 129/73 Pulse Oximetry 95 Oxygen Delivery Room Air 12/22/24 06:00 12/22/24 06:00 12/22/24 08:00 Temperature 98.6 F Pulse Rate 66 66 64 Respiratory Rate 15 19 Blood Pressure 132/77 Pulse Oximetry 99 100 Oxygen Delivery Room Air 12/22/24 08:00 12/22/24 08:00 12/22/24 08:47 Temperature Pulse Rate 64 67 79 Respiratory Rate 19 Blood Pressure 114/71 Pulse Oximetry 100 Oxygen Delivery 12/22/24 10:00 12/22/24 10:00 12/22/24 12:00 Temperature Pulse Rate 69 69 61 Respiratory Rate 12 23 H Blood Pressure 125/75 Pulse Oximetry 100 100 Oxygen Delivery Room Air 12/22/24 12:00 12/22/24 12:00 12/22/24 16:00 Temperature 98.7 F Pulse Rate 74 61 64 Respiratory Rate 23 H 14 Blood Pressure 102/53 L 119/69 Pulse Oximetry 99 99 Oxygen Delivery Exam 2 Narrative: GENERAL: thin, cachectic HEAD: Normocephalic, atraumatic. EYES: PERRLA and EOMI. ENT: Nares clear. NECK: Supple. Large nodular mass on the right side of the neck CHEST: Clear to auscultation. No respiratory distress. HEART: Regular rate and rhythm. No murmur heard. Normal peripheral pulses. ABDOMEN: Soft, nontender, nondistended, normal active bowel sounds. EXTREMITIES: Normal range of motion. No edema. SKIN: Warm, dry, no rash. NEURO: No focal deficits. Alert and oriented x3. PSYCH: Normal mood and affect. Results Labs 12/22/24 05:09 12/22/24 05:09 Labs: Short CBC 12/22/24 Range/Units 05:09 WBC 10.2 H (4.5-10.0) K/mm3 Hgb 8.7 L (14.0-18.0) g/dL Hct 27.7 L (42.0-52.0) % Plt Count 236 (150-375) k/mm3 [facility] 12/22/24 05:09 Sodium 135 L Potassium 4.5 Chloride 102 Carbon Dioxide 26 BUN 14 D Creatinine 0.68 L Glucose 96 Calcium 9.3 Cardiac Enzymes 12/22/24 12/22/24 Range/Units 01:08 05:09 Troponin I 25.900 H* 50.100 H* D (0.000-0.034) ng/mL
[2024-12-22 22:03] LABS: Partial Thromboplastin Time 79.5 Seconds (22.3-36.8)
[2024-12-23] VITALS (18 sets, daily range): BP systolic 113–130; BP diastolic 57–72; PULSE 53–75; RESP 14–18; TEMP 36.6–37.1; O2SAT 98–100
--- NOTE | 2024-12-23 | ECHO_ITS ---
Patient Info Name: Ron Orozco Age: 64 years : 1960 Gender: Male Ht: 71 in Wt: 111 lbs BSA: 1.57 m2 HR: 56 bpm BP: 114 / 59 mmHg Technical Quality: Fair, Good Exam Date: 12/23/2024 9:11 AM Patient Status: I Admit Date: 12/21/2024 Exam Type: CA echo doppler color flow Complete two-dimensional, color flow and Doppler transthoracic echocardiogram is performed. Staff Referring Physician: Farzad Carty MD Pneumatic Deicer Inspector: Itzel Turner Attending Provider: Li Silva Summary 1. Left ventricular chamber dimension is normal. 2. Left ventricular systolic function is normal, estimated at 50-55. 3. There is hypokinesis of the inferolateral wall. 4. The left ventricular diastolic function is grade I diastolic dysfunction. 5. Right ventricular systolic function is normal. 6. There is mild aortic valve regurgitation. 7. There is mild mitral valve regurgitation. 8. There is mild tricuspid valve regurgitation. 9. There is small anterior pericardial effusion. Left Ventricle Left ventricular chamber dimension is normal. There is no increased left ventricular wall thickness. Left ventricular systolic function is normal, estimated at 50-55. There is hypokinesis of the inferolateral wall. The left ventricular diastolic function is grade I diastolic dysfunction. Right Ventricle Right ventricular chamber dimension is normal. Right ventricular systolic function is normal. Left Atria Left atrial chamber dimension is normal. Right Atria Right atrial chamber dimension is normal. Atrial Septum Intact interatrial septum visualized by color flow imaging. Aortic Valve The aortic valve is trileaflet. There is no aortic valve stenosis. There is mild aortic valve regurgitation. Pulmonic Valve The pulmonic valve is not well visualized. There is trace pulmonic regurgitation. Mitral Valve There is mild mitral valve regurgitation. Tricuspid Valve There is mild tricuspid valve regurgitation. Pericardium/Pleural There is small anterior pericardial effusion. Inferior Vena Cava Normal inferior vena cava with >50% collapse upon inspiration consistent with normal right atrial pressure, 3 mmHg. Aorta The aortic root size at the sinus of Valsalva is normal. Left Ventricular Outflow Tract Name Value Normal LVOT 2D LVOT Diameter 1.8 cm LVOT Doppler LVOT Peak Velocity 131 cm/s LVOT Peak Gradient 7 mmHg LVOT Mean Gradient 3 mmHg LVOT VTI 26 cm LVOT VTI/AV VTI Ratio 0.9 LVOT Stroke Volume 65 ml LVOT CO 12.5 l/min LVOT CI 8.0 l/min/m2 Pulmonic Valve Name Value Normal PV Doppler PV Peak Velocity 131 cm/s PV Peak Gradient 7 mmHg Mitral Valve Name Value Normal MV Diastolic Function MV E Peak Velocity 59 cm/s MV A Peak Velocity 45 cm/s MV E/A 1.3 MV Decel Time (PW) 316 ms MV Annular TDI MV E/e' (Septal) 9.1 MV E/e' (Lateral) 4.2 MV E/e' (Average) 6.7 Tricuspid Valve Name Value Normal TV Regurgitation Doppler TR Peak Velocity 267 cm/s TR Peak Gradient 29 mmHg Estimated PAP/RSVP RA Pressure 3 mmHg <=5 PA Systolic Pressure 32 mmHg <36 RV Systolic Pressure 32 mmHg <36 TV Annular TDI TV Lateral Teresa s' Velocity 12.4 cm/s >=9.5 Aorta Name Value Normal Ascending Aorta Ao Root Diameter (MM) 3.7 cm Ao Root Diam Index (MM) 2.3 cm/m2 Aortic Valve Name Value Normal AV Doppler AV Peak Velocity 149 cm/s AV Peak Gradient 9 mmHg AV Mean Gradient 5 mmHg AV VTI 27 cm AV Area (Cont Eq VTI) 2.4 cm2 >=3.0 AV Area (Cont Eq Derrick) 2.2 cm2 AV DI (Derrick) 0.88 AV Regurgitation 2D LVOT Area 2.5 cm2 Ventricles Name Value Normal LV Dimensions 2D/MM IVS Diastolic Thickness (2D) 1.0 cm 0.6-1.0 LVID Diastole (2D) 3.8 cm 4.2-5.8 LVIW Diastolic Thickness (2D) 0.9 cm 0.6-1.0 LVID Systole (2D) 2.9 cm 2.5-4.0 LVOT Diameter 1.8 cm LV Mass (2D Cubed) 113.60 g 88.00-224.00 LV Mass Index (2D Cubed) 73 g/m2 49-115 Relative Wall Thickness (2D) 0.50 <=0.42 LV Fractional Shortening/Ejection Fraction 2D/MM LV Fractional Shortening (2D) 24 % 25-43 LV EF (2D Teichholz) 48 % LV Diastolic Volume (4C MOD) 105 ml LV EF (4C MOD) 60 % LV Diastolic Volume (2C MOD) 124 ml LV EF (2C MOD) 73 % LV Diastolic Volume (BP MOD) 119 ml 62-150 LV Diastolic Volume Index (BP MOD) 76 ml/m2 34-74 LV Systolic Volume (BP MOD) 39 ml 21-61 LV Systolic Volume Index (BP MOD) 25 ml/m2 11-31 LV EF (BP MOD) 67 % 52-72 LV Diastolic Length (4C) 8.6 cm LV Systolic Length (4C) 8.0 cm LV Stroke Volume (4C MOD) 63 ml RV Dimensions 2D/MM RVID Diastole (2D) 3.7 cm 2.1-3.5 Atria Name Value Normal LA Dimensions LA Dimension (MM) 3.6 cm 3.0-4.0 LA Volume (4C A-L) 42 ml LA Volume (BP A-L) 50 ml RA Dimensions RA Systolic Major [place] Length (4C) 5.3 cm 2.1-2.7 RA Area (4C) 18.3 cm2 <=18.0 Report Signatures
[2024-12-23 04:13] LABS: Hematocrit 26.5 % (42.0-52.0); Hemoglobin 8.4 g/dL (14.0-18.0); Mean Corpuscular HGB Conc 31.7 g/dl (32-36); Mean Corpuscular Hemoglobin 27.3 pg (26-34); Mean Corpuscular Volume 86.0 fl (80-100); Platelet Count Result 224 k/mm3 (150-375); Red Blood Count 3.08 M/mm3 (4.6-6.20); White Blood Count 5.3 K/mm3 (4.5-10.0)
[2024-12-23 04:25] LABS: Alanine Aminotransferase 38 U/L (6-50); Albumin Level 3.6 g/dL (3.5-5.1); Alkaline Phosphatase 54 U/L (38-126); Anion Gap 3 mmol/L (4-12); Aspartate Amino Transferase 169 U/L (17-59); Bilirubin,Total 0.4 mg/dL (0.2-1.3); Blood Urea Nitrogen 17 mg/dL (9-20); Calcium 9.2 mg/dL (8.4-10.2); Carbon Dioxide 29 mmol/L (22-30); Chloride 104 mmol/L (98-107); Estimated CRCL calculation 66 ml/min; Estimated Glomerular Filt Rate > 60; Glucose 88 mg/dL (65-110); Magnesium 2.1 mg/dL (1.6-2.3); Potassium 4.0 mmol/L (3.4-5.0); Sodium 136 mmol/L (137-145); Total Protein 6.6 g/dL (6.3-8.2)
[2024-12-23 04:28] LABS: Partial Thromboplastin Time 83.3 Seconds (22.3-36.8)
[2024-12-23] MEDS: HEPARIN SOD/D5W 100 UNITS/ML 25,000 UNITS/250 ML BAG 8 UNITS IV CONT (06:07)
--- NOTE | 2024-12-23 08:47 | P.PNCA_ITS ---
Progress Note: A&P Assessment and Plan (1) ST elevation (STEMI) myocardial infarction: Code(s): I21.3 - ST elevation (STEMI) myocardial infarction of unspecified site Status: Acute Plan 1. Inferior STEMI 2. Hypertension 3. Former nonsmoker 4. 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 Infrequent episodes of hemoptysis 6. Atrial fibrillation [facility] (12/21/2024) Post POBA of mRCA, no KYLIE placed as he had difficulty in taking medications -continue aspirin 81 mg once daily -will hold Plavix for PEG tube placement on Thursday - Continue metoprolol 25 mg twice daily -Continue atorvastatin 80 mg once daily -continue heparin infusion - I had another discussion with him and his regarding further plan of action in the light of heavily calcified vessels with significant stenosis in the LAD, circumflex and RCA. We discussed the plan for revascularization, modalities of revascularization. We discussed the ened for a PEG placemtn and determination of his prognosis prior to any aggressive revascularization attempt. - He understood the risk of bleeding from his malignant mass while he is on DAPT and heparin - Will keep him on heparin infusion if DAPT has to be stopped in case of PEG tube placement. Subjective Date/time seen: 12/23/24 08:47 Interval history: No chest pain No shortness of breaths On heparin infusion On aspirin/Plavix Hemoglobin stable no obvious bleeding Seen by GI, planned for PEG on Thursday noted Review of Systems Review of Systems: A 10 system review of systems was completed on the patient and is negative except for what is stated in the HPI. Nursing and ancillary documentation was reviewed. Exam Narrative: GENERAL: thin, cachectic HEAD: Normocephalic, atraumatic. EYES: PERRLA and EOMI. ENT: Nares clear, no rhinorrhea or epistaxis. Mucous membranes moist. NECK: Supple. Large nodular mass on the right side of the neck CHEST: Clear to auscultation. No respiratory distress. HEART: Regular rate and rhythm. No murmur heard. Normal peripheral pulses. ABDOMEN: Soft, nontender, nondistended, normal active bowel sounds. EXTREMITIES: Normal range of motion. No edema. SKIN: Warm, dry, no rash. NEURO: No focal deficits. Alert and oriented x3. PSYCH: Normal mood and affect. Objective Data Vital Signs Vital Signs: Vital Signs - 24 hr 12/22/24 10:00 12/22/24 10:00 12/22/24 12:00 Temperature Pulse Rate 69 69 61 Respiratory Rate 12 23 H Blood Pressure 125/75 Pulse Oximetry 100 100 Oxygen Delivery Room Air 12/22/24 12:00 12/22/24 12:00 12/22/24 14:00 Temperature Pulse Rate 74 61 76 Respiratory Rate 23 H Blood Pressure 102/53 L Pulse Oximetry 99 Oxygen Delivery 12/22/24 16:00 12/22/24 16:00 12/22/24 18:00 Temperature 37.1 C Pulse Rate 64 62 64 Respiratory Rate 14 Blood Pressure 119/69 Pulse Oximetry 99 Oxygen Delivery 12/22/24 18:00 12/22/24 20:00 12/22/24 20:00 Temperature 37.2 C Pulse Rate 69 57 L Respiratory Rate 16 22 H Blood Pressure 110/63 118/71 Pulse Oximetry 100 100 Oxygen Delivery Room Air 12/22/24 20:00 12/22/24 21:04 12/22/24 22:00 Temperature Pulse Rate 70 78 63 Respiratory Rate Blood Pressure Pulse Oximetry Oxygen Delivery 12/22/24 23:17 12/22/24 23:57 12/23/24 00:00 Temperature 37.1 C Pulse Rate 64 65 60 Respiratory Rate 20 16 Blood Pressure 126/76 Pulse Oximetry 100 100 Oxygen Delivery Room Air 12/23/24 02:00 12/23/24 03:54 12/23/24 04:00 Temperature 37.1 C Pulse Rate 56 L 67 53 L Respiratory Rate 16 18 Blood Pressure 114/59 L Pulse Oximetry 100 98 Oxygen Delivery Room Air 12/23/24 04:00 12/23/24 06:00 12/23/24 07:30 Temperature 36.6 C Pulse Rate 57 L 62 74 Respiratory Rate 14 Blood Pressure 130/72 Pulse Oximetry 100 Oxygen Delivery Intake/Output Intake/Output: Intake & Output 12/20/24 12/21/24 12/22/24 12/23/24 23:59 23:59 23:59 23:59 Intake Total 720 250 Output Total 1725 200 Balance -1005 50 Meds/Results Medications: Active Medications Generic Name Dose Route Start Last Admin Trade Name Freq PRN Reason Stop Dose Admin Acetaminophen 650 mg 12/22/24 00:53 Acetaminophen 325 Mg Tablet PO Q4H PRN Mild Pain (1-3) or Fever Aspirin 81 mg 12/22/24 08:00 12/22/24 08:47 Aspirin 81 Mg Chewable Tablet PO 81 mg DAILY@0800 VEE Administration Atorvastatin Calcium 80 mg 12/21/24 20:25 12/22/24 15:01 Atorvastatin 40 Mg Tablet PO 80 mg DAILY VEE Administration Clopidogrel Bisulfate 75 mg 12/22/24 08:00 12/22/24 08:47 Clopidogrel Bisulfate 75 Mg Tablet PO 75 mg DAILY@0800 VEE Administration Heparin Sodium (Porcine) 4,000 units 12/21/24 16:49 12/22/24 01:57 Heparin Sodium 5,000 Units/Ml Vial IV PUSH 4,000 units PRN PRN Administration aPTT less than 55 seconds Heparin Sodium (Porcine) 2,000 units 12/21/24 16:49 12/22/24 15:00 Heparin Sodium 5,000 Units/Ml Vial IV PUSH 2,000 units PRN PRN Administration aPTT 55 - 70 seconds Heparin Sodium/Dextrose 25,000 units in 250 mls @ 8 mls/hr 12/21/24 20:20 12/23/24 06:07 Heparin Sodium/D5w 100 Units/Ml IV CONT 800 units/hr .Q24H VEE 8 mls/hr Protocol Administration 800 UNITS/HR Metoprolol Tartrate 25 mg 12/21/24 21:00 12/22/24 21:04 Metoprolol Tartrate 25 Mg Tablet PO 25 mg Q12HR VEE Administration Perflutren Lipid Microsphere 0 ml 12/22/24 09:57 Perflutren Lipid Microspheres 1.5 Ml Vial Diluted To 10 Ml Total Volume IV PUSH 12/25/24 09:57 ONCE PRN adequate visualization Protocol Radiology Results: ITS Impressions Chest X-Ray 12/21/24 17:03 IMPRESSION: 1: NO ACUTE CARDIOPULMONARY DISEASE. 2. There are a few distended air-filled loops of bowel in the upper abdomen. Consider dedicated x-rays of the abdomen for further assessment Modified Barium Swallow 12/22/24 16:42 IMPRESSION: Pharyngeal dysphagia with laryngeal penetration and aspiration likely secondary to a malignant appearing mass involving the base of the tongue and the epiglottis as seen on CT from 06/10/2024. Please correlate with speech pathologist findings and specific feeding recommendations. Labs Labs: Laboratory Results - last 24 hr 12/22/24 12/22/24 12/23/24 14:20 21:22 04:00 WBC 5.3 RBC 3.08 L Hgb 8.4 L Hct 26.5 L MCV 86.0 MCH 27.3 MCHC 31.7 L RDW 13.7 Plt Count 224 MPV 9.2 APTT 69.9 H 79.5 H 83.3 H Sodium 136 L Potassium 4.0 Chloride 104 Carbon Dioxide 29 Anion Gap 3 L BUN 17 Creatinine 0.72 Estim Creat Clear Calc 66 Estimated GFR > 60 Glucose 88 Calcium 9.2 Magnesium 2.1 Total Bilirubin 0.4 AST 169 H ALT 38 Alkaline Phosphatase 54 Total Protein 6.6 Albumin 3.6
[2024-12-23] MEDS: ATORVASTATIN 40 MG TABLET 80 MG PO (09:44)
[2024-12-23] MEDS: ASPIRIN 81 MG CHEWABLE TABLET PO (09:44)
[2024-12-23] MEDS: CLOPIDOGREL BISULFATE 75 MG TABLET PO (09:44)
[2024-12-23] MEDS: METOPROLOL TARTRATE 25 MG TABLET PO ×2 (09:44→20:45)
--- NOTE | 2024-12-23 16:11 | P.PNGI_ITS ---
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, unspecified Status: Acute Assessment and Plan: patient will need peg placement, park interpretive specialist is ok with procedure this coming Thursday for which plavix will be held and heparin stopped prior procedure he has advanced malignancy and has been losing weight and also has malnutrition, prognosis is guarded (2) Dysphagia: Qualifiers: Dysphagia type: oropharyngeal phase Qualified Code(s): R13.12 - Dysphagia, oropharyngeal phase Code(s): R13.10 - Dysphagia, unspecified Status: Acute Assessment and Plan: from malignancy (3) Weight loss: Code(s): R63.4 - Abnormal weight loss Status: Acute (4) ST elevation (STEMI) myocardial infarction: Code(s): I21.3 - ST elevation (STEMI) myocardial infarction of unspecified site Status: Acute Assessment and Plan: management per park interpretive specialist (5) Anticoagulant long-term use: 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 EYES: PERRLA and EOMI. ENT: Nares clear. NECK: Supple. Large nodular mass on the right side of the neck CHEST: Clear to auscultation. No respiratory distress. HEART: Regular rate and rhythm. No murmur heard. Normal peripheral pulses. ABDOMEN: Soft, nontender, nondistended, normal active bowel sounds. EXTREMITIES: Normal range of motion. No edema. SKIN: Warm, dry, no rash. NEURO: No focal deficits. Alert and oriented x3. PSYCH: Normal mood and affect. Objective Data Vital Signs Vital Signs: Vital Signs - 24 hr 12/22/24 18:00 12/22/24 18:00 12/22/24 20:00 Temperature 98.9 F Pulse Rate 64 69 Respiratory Rate 16 Blood Pressure 110/63 118/71 Pulse Oximetry 100 Oxygen Delivery 08/21/25 20:00 12/22/24 20:00 12/22/24 21:04 Temperature Pulse Rate 57 L 70 78 Respiratory Rate 22 H Blood Pressure Pulse Oximetry 100 Oxygen Delivery Room Air 12/22/24 22:00 12/22/24 23:17 12/22/24 23:57 Temperature 98.7 F Pulse Rate 63 64 65 Respiratory Rate 20 16 Blood Pressure 126/76 Pulse Oximetry 100 100 Oxygen Delivery Room Air 12/23/24 00:00 12/23/24 02:00 12/23/24 03:54 Temperature 98.7 F Pulse Rate 60 56 L 67 Respiratory Rate 16 Blood Pressure 114/59 L Pulse Oximetry 100 Oxygen Delivery 12/23/24 04:00 12/23/24 04:00 12/23/24 06:00 Temperature Pulse Rate 53 L 57 L 62 Respiratory Rate 18 Blood Pressure Pulse Oximetry 98 Oxygen Delivery Room Air 12/23/24 07:30 12/23/24 08:00 12/23/24 08:00 Temperature 97.8 F Pulse Rate 74 75 Respiratory Rate 14 Blood Pressure 130/72 Pulse Oximetry 100 Oxygen Delivery Room Air 12/23/24 10:00 12/23/24 12:00 12/23/24 12:00 Temperature 98.4 F Pulse Rate 67 66 Respiratory Rate 18 Blood Pressure 125/60 Pulse Oximetry 100 Oxygen Delivery Room Air 12/23/24 12:00 12/23/24 14:00 Temperature Pulse Rate 70 63 Respiratory Rate Blood Pressure Pulse Oximetry Oxygen Delivery Intake/Output Intake/Output: Intake & Output 12/20/24 12/21/24 12/22/24 12/23/24 23:59 23:59 23:59 23:59 Intake Total 720 250 Output Total 1725 200 Balance -1005 50 Meds/Results Medications: Active Medications Generic Name Dose Route Start Last Admin Trade Name Freq PRN Reason Stop Dose Admin Acetaminophen 650 mg 12/22/24 00:53 Acetaminophen 325 Mg Tablet PO Q4H PRN Mild Pain (1-3) or Fever Aspirin 81 mg 12/22/24 08:00 12/23/24 09:44 Aspirin 81 Mg Chewable Tablet PO 81 mg DAILY@0800 VEE Administration Atorvastatin Calcium 80 mg 12/21/24 20:25 12/23/24 09:44 Atorvastatin 40 Mg Tablet PO 80 mg DAILY VEE Administration Heparin Sodium (Porcine) 4,000 units 12/21/24 16:49 12/22/24 01:57 Heparin Sodium 5,000 Units/Ml Vial IV PUSH 4,000 units PRN PRN Administration aPTT less than 55 seconds Heparin Sodium (Porcine) 2,000 units 12/21/24 16:49 12/22/24 15:00 Heparin Sodium 5,000 Units/Ml Vial IV PUSH 2,000 units PRN PRN Administration aPTT 55 - 70 seconds Heparin Sodium/Dextrose 25,000 units in 250 mls @ 8 mls/hr 12/21/24 20:20 12/23/24 06:07 Heparin Sodium/D5w 100 Units/Ml IV CONT 800 units/hr .Q24H VEE 8 mls/hr Protocol Administration 800 UNITS/HR Metoprolol Tartrate 25 mg 12/21/24 21:00 12/23/24 09:44 Metoprolol Tartrate 25 Mg Tablet PO 25 mg Q12HR VEE Administration Perflutren Lipid Microsphere 0 ml 12/22/24 09:57 Perflutren Lipid Microspheres 1.5 Ml Vial Diluted To 10 Ml Total Volume IV PUSH 12/25/24 09:57 ONCE PRN adequate visualization Protocol Radiology Results: ITS Impressions Chest X-Ray 12/21/24 17:03 IMPRESSION: 1: NO ACUTE CARDIOPULMONARY DISEASE. 2. There are a few distended air-filled loops of bowel in the upper abdomen. Consider dedicated x-rays of the abdomen for further assessment Modified Barium Swallow 12/22/24 16:42 IMPRESSION: Pharyngeal dysphagia with laryngeal penetration and aspiration likely secondary to a malignant appearing mass involving the base of the tongue and the epiglottis as seen on CT from 06/10/2024. Please correlate with speech pathologist findings and specific feeding recommendations. Neck/Chest CT 12/23/24 11:28 IMPRESSION: 1. 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 2. Interval progression of metastatic disease with enlargement of several bilateral cervical lymph nodes and of multiple subcentimeter scattered pulmonary nodules. 2. Indeterminate 1.7 similar hyperdense mass at the posterior dome of the right hepatic lobe also suspicious for metastatic disease. 4. 4.2 cm fusiform ascending thoracic aortic aneurysm. 5. Atherosclerotic calcific lesions at the bilateral carotid bulbs with 70% stenosis on the right. Labs Labs: Laboratory Results - last 24 hr 12/22/24 12/23/24 21:22 04:00 WBC 5.3 RBC 3.08 L Hgb 8.4 L Hct 26.5 L MCV 86.0 MCH 27.3 MCHC 31.7 L RDW 13.7 Plt Count 224 MPV 9.2 APTT 79.5 H 83.3 H Sodium 136 L Potassium 4.0 Chloride 104 Carbon Dioxide 29 Anion Gap 3 L BUN 17 Creatinine 0.72 Estim Creat Clear Calc 66 Estimated GFR > 60 Glucose 88 Calcium 9.2 Magnesium 2.1 Total Bilirubin 0.4 AST 169 H ALT 38 Alkaline Phosphatase 54 Total Protein 6.6 Albumin 3.6
[2024-12-24] VITALS (20 sets, daily range): BP systolic 113–124; BP diastolic 60–70; PULSE 54–81; RESP 12–20; TEMP 36.4–37.6; O2SAT 99–100
[2024-12-24 04:18] LABS: Hematocrit 26.6 % (42.0-52.0); Hemoglobin 8.3 g/dL (14.0-18.0); Mean Corpuscular HGB Conc 31.2 g/dl (32-36); Mean Corpuscular Hemoglobin 26.9 pg (26-34); Mean Corpuscular Volume 86.1 fl (80-100); Platelet Count Result 216 k/mm3 (150-375); Red Blood Count 3.09 M/mm3 (4.6-6.20); White Blood Count 4.8 K/mm3 (4.5-10.0)
[2024-12-24 04:31] LABS: Alanine Aminotransferase 29 U/L (6-50); Albumin Level 3.5 g/dL (3.5-5.1); Alkaline Phosphatase 57 U/L (38-126); Anion Gap 2 mmol/L (4-12); Aspartate Amino Transferase 78 U/L (17-59); Bilirubin,Total 0.3 mg/dL (0.2-1.3); Blood Urea Nitrogen 18 mg/dL (9-20); Calcium 9.1 mg/dL (8.4-10.2); Carbon Dioxide 29 mmol/L (22-30); Chloride 104 mmol/L (98-107); Estimated CRCL calculation 63 ml/min; Estimated Glomerular Filt Rate > 60; Glucose 92 mg/dL (65-110); Magnesium 1.9 mg/dL (1.6-2.3); Potassium 3.8 mmol/L (3.4-5.0); Sodium 135 mmol/L (137-145); Total Protein 6.7 g/dL (6.3-8.2)
[2024-12-24 04:32] LABS: Partial Thromboplastin Time 56.5 Seconds (22.3-36.8)
[2024-12-24] MEDS: ASPIRIN 81 MG CHEWABLE TABLET PO (08:04)
--- NOTE | 2024-12-24 09:02 | P.PNCA_ITS ---
Progress Note: A&P Assessment and Plan (1) ST elevation (STEMI) myocardial infarction: Code(s): I21.3 - ST elevation (STEMI) myocardial infarction of unspecified site Status: Acute Plan 1. Inferior STEMI 2. Hypertension 3. Former nonsmoker 4. 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 Infrequent episodes of hemoptysis 6. Atrial fibrillation In regards to NSTEMI, [facility] (12/21/2024) Post POBA of mRCA, no KYLIE placed as he had difficulty in taking medications -continue aspirin 81 mg once daily -will hold Plavix for PEG tube placement on Thursday -continue metoprolol, heparin infusion and atorvastatin. - I had another discussion with him and his regarding further plan of action in the light of heavily calcified vessels with significant stenosis in t he LAD, circumflex and RCA. We discussed the plan for revascularization, modalities of revascularization. We discussed the ened for a PEG placemtn and determination of his prognosis prior to any aggressive revascularization attempt. - He understood the risk of bleeding from his malignant mass while he is on DAPT and heparin - Will keep him on heparin infusion if DAPT has to be stopped in case of PEG tube placement. In regards to hyperlipidemia, continue high intensity statin. In regards to hypertension continue metoprolol. Controlled. In regards to metastatic cancer of the tongue, was plan for radiation therapy next week. He will need to follow-up with oncology. Subjective Date/time seen: Date of service 12/24/24 09:02 Interval history: No chest pain No shortness of breaths On heparin infusion On aspirin/Plavix Hemoglobin stable no obvious bleeding Seen by GI, planned for PEG on Thursday noted Date of service 12/24/2024-resting comfortably in bed. No chest pain. Taking pills with puree diet. Denies chest pain. No arrhythmia on telemetry Review of Systems Review of Systems: A 10 system review of systems was completed on the patient and is negative exce pt for what is stated in the HPI. Nursing and ancillary documentation was reviewed. Exam Narrative: GENERAL: thin, cachectic HEAD: Normocephalic, atraumatic. EYES: PERRLA and EOMI. ENT: Nares clear, no rhinorrhea or epistaxis. Mucous membranes moist. NECK: Supple. Large nodular mass on the right side of the neck CHEST: Clear to auscultation. No respiratory distress. HEART: Regular rate and rhythm. No murmur heard. Normal peripheral pulses. ABDOMEN: Soft, nontender, nondistended, normal active bowel sounds. EXTREMITIES: Normal range of motion. No edema. SKIN: Warm, dry, no rash. NEURO: No focal deficits. Alert and oriented x3. PSYCH: Normal mood and affect. Objective Data Vital Signs Vital Signs: Vital Signs - 24 hr 12/23/24 10:00 12/23/24 12:00 12/23/24 12:00 Temperature 36.9 C Pulse Rate 67 66 Respiratory Rate 18 Blood Pressure 125/60 Pulse Oximetry 100 Oxygen Delivery Room Air 12/23/24 12:00 12/23/24 14:00 12/23/24 15:26 Temperature 36.9 C Pulse Rate 70 63 66 Respiratory Rate 16 Blood Pressure 122/57 L Pulse Oximetry 100 Oxygen Delivery 12/23/24 16:00 12/23/24 16:00 12/23/24 18:00 Temperature Pulse Rate 65 73 Respiratory Rate Blood Pressure Pulse Oximetry Oxygen Delivery Room Air 12/23/24 19:52 12/23/24 20:00 12/23/24 20:35 Temperature 36.6 C Pulse Rate 68 66 Respiratory Rate 15 Blood Pressure 113/62 Pulse Oximetry 99 Oxygen Delivery Room Air 12/23/24 20:45 12/23/24 22:00 12/23/24 23:33 Temperature 36.6 C Pulse Rate 73 62 59 L Respiratory Rate 15 Blood Pressure 116/61 Pulse Oximetry 100 Oxygen Delivery 12/24/24 00:00 12/24/24 00:00 12/24/24 02:00 Temperature Pulse Rate 57 L 57 L Respiratory Rate Blood Pressure Pulse Oximetry Oxygen Delivery Room Air 12/24/24 04:00 12/24/24 04:05 12/24/24 04:19 Temperature 36.6 C Pulse Rate 54 L 59 L Respiratory Rate 16 Blood Pressure 120/65 Pulse Oximetry 100 Oxygen Delivery Room Air 12/24/24 05:54 12/24/24 07:54 Temperature 36.4 C Pulse Rate 56 L 77 Respiratory Rate 16 Blood Pressure 124/70 Pulse Oximetry 100 Oxygen Delivery Intake/Output Intake/Output: Intake & Output 08/20/25 08/21/25 08/22/25 08/23/25 23:59 23:59 23:59 23:59 Intake Total 720 1000 420.9 Output Total 1725 775 200 Balance -1005 225 220.9 Meds/Results Medications: Active Medications Generic Name Dose Route Start Last Admin Trade Name Freq PRN Reason Stop Dose Admin Acetaminophen 650 mg 12/22/24 00:53 Acetaminophen 325 Mg Tablet PO Q4H PRN Mild Pain (1-3) or Fever Aspirin 81 mg 12/22/24 08:00 12/24/24 08:04 Aspirin 81 Mg Chewable Tablet PO 81 mg DAILY@0800 VEE Administration Atorvastatin Calcium 80 mg 12/21/24 20:25 12/23/24 09:44 Atorvastatin 40 Mg Tablet PO 80 mg DAILY VEE Administration Heparin Sodium (Porcine) 4,000 units 12/21/24 16:49 12/22/24 01:57 Heparin Sodium 5,000 Units/Ml Vial IV PUSH 4,000 units PRN PRN Administration aPTT less than 55 seconds Heparin Sodium (Porcine) 2,000 units 12/21/24 16:49 12/24/24 04:43 Heparin Sodium 5,000 Units/Ml Vial IV PUSH 2,000 units PRN PRN Administration aPTT 55 - 70 seconds Heparin Sodium/Dextrose 25,000 units in 250 mls @ 9 mls/hr 12/21/24 20:20 12/24/24 04:44 Heparin Sodium/D5w 100 Units/Ml IV CONT 900 units/hr .Q24H VEE 9 mls/hr Protocol Titration 900 UNITS/HR Metoprolol Tartrate 25 mg 12/21/24 21:00 12/23/24 20:45 Metoprolol Tartrate 25 Mg Tablet PO 25 mg Q12HR VEE Administration Perflutren Lipid Microsphere 0 ml 12/22/24 09:57 Perflutren Lipid Microspheres 1.5 Ml Vial Diluted To 10 Ml Total Volume IV PUSH 12/25/24 09:57 ONCE PRN adequate visualization Protocol Radiology Results: ITS Impressions Chest X-Ray 12/21/24 17:03 IMPRESSION: 1: NO ACUTE CARDIOPULMONARY DISEASE. 2. There are a few distended air-filled loops of bowel in the upper abdomen. Consider dedicated x-rays of the abdomen for further assessment Modified Barium Swallow 12/22/24 16:42 IMPRESSION: Pharyngeal dysphagia with laryngeal penetration and aspiration likely secondary to a malignant appearing mass involving the base of the tongue and the epiglottis as seen on CT from 06/10/2024. Please correlate with speech pathologist findings and specific feeding recommendations. Neck/Chest CT 12/23/24 11:28 IMPRESSION: 1. 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 2. Interval progression of metastatic disease with enlargement of several bilateral cervical lymph nodes and of multiple subcentimeter scattered pulmonary nodules. 2. Indeterminate 1.7 similar hyperdense mass at the posterior dome of the right hepatic lobe also suspicious for metastatic disease. 4. 4.2 cm fusiform ascending thoracic aortic aneurysm. 5. Atherosclerotic calcific lesions at the bilateral carotid bulbs with 70% stenosis on the right. Labs Labs: Laboratory Results - last 24 hr 12/24/24 04:09 WBC 4.8 RBC 3.09 L Hgb 8.3 L Hct 26.6 L MCV 86.1 MCH 26.9 MCHC 31.2 L RDW 13.6 Plt Count 216 MPV 9.4 APTT 56.5 H Sodium 135 L Potassium 3.8 Chloride 104 Carbon Dioxide 29 Anion Gap 2 L BUN 18 Creatinine 0.75 Estim Creat Clear Calc 63 Estimated GFR > 60 Glucose 92 Calcium 9.1 Magnesium 1.9 Total Bilirubin 0.3 AST 78 H ALT 29 Alkaline Phosphatase 57 Total Protein 6.7 Albumin 3.5
[2024-12-24] MEDS: ATORVASTATIN 40 MG TABLET 80 MG PO (09:03)
[2024-12-24] MEDS: METOPROLOL TARTRATE 25 MG TABLET PO ×2 (09:03→20:24)
[2024-12-24] MEDS: HEPARIN SOD/D5W 100 UNITS/ML 25,000 UNITS/250 ML BAG 9 UNITS IV CONT (10:26)
--- NOTE | 2024-12-24 11:06 | WPDGIPROGNO ---
Progress Note: A&P Assessment and Plan (1) Tongue cancer: Code(s): C02.9 - Malignant neoplasm of tongue, unspecified Status: Acute Assessment and Plan: the patient is followed by Cardiology for a Nasi wave myocardial infarction. He is currently on heparin drip and aspirin. He is asymptomatic from the cardiovascular standpoint. PEG placemenet is scheduled for Thursday, and heparin drip should be stopped the night before. Subjective Date/time seen: 12/24/24 11:06 Objective Data Vital Signs Vital Signs: Vital Signs - 24 hr 12/23/24 12:00 12/23/24 12:00 12/23/24 12:00 Temperature 98.4 F Pulse Rate 66 70 Respiratory Rate 18 Blood Pressure 125/60 Pulse Oximetry 100 Oxygen Delivery Room Air 12/23/24 14:00 12/23/24 15:26 12/23/24 16:00 Temperature 98.4 F Pulse Rate 63 66 Respiratory Rate 16 Blood Pressure 122/57 L Pulse Oximetry 100 Oxygen Delivery Room Air 12/23/24 16:00 12/23/24 18:00 12/23/24 19:52 Temperature 97.9 F Pulse Rate 65 73 68 Respiratory Rate 15 Blood Pressure 113/62 Pulse Oximetry 99 Oxygen Delivery 12/23/24 20:00 12/23/24 20:35 12/23/24 20:45 Temperature Pulse Rate 66 73 Respiratory Rate Blood Pressure Pulse Oximetry Oxygen Delivery Room Air 12/23/24 22:00 12/23/24 23:33 12/24/24 00:00 Temperature 97.8 F Pulse Rate 62 59 L Respiratory Rate 15 Blood Pressure 116/61 Pulse Oximetry 100 Oxygen Delivery Room Air 12/24/24 00:00 12/24/24 02:00 12/24/24 04:00 Temperature Pulse Rate 57 L 57 L 54 L Respiratory Rate Blood Pressure Pulse Oximetry Oxygen Delivery 12/24/24 04:05 12/24/24 04:19 12/24/24 05:54 Temperature 97.8 F Pulse Rate 59 L 56 L Respiratory Rate 16 Blood Pressure 120/65 Pulse Oximetry 100 Oxygen Delivery Room Air 12/24/24 07:54 12/24/24 08:00 12/24/24 09:03 Temperature 97.6 F Pulse Rate 77 81 77 Respiratory Rate 16 Blood Pressure 124/70 Pulse Oximetry 100 Oxygen Delivery 12/24/24 10:00 Temperature Pulse Rate 62 Respiratory Rate Blood Pressure Pulse Oximetry Oxygen Delivery Intake/Output Intake/Output: Intake & Output 12/21/24 12/22/24 12/23/24 12/24/24 23:59 23:59 23:59 23:59 Intake Total 720 1000 592.2 Output Total 1725 775 200 Balance -1005 225 392.2 Meds/Results Medications: Active Medications Generic Name Dose Route Start Last Admin Trade Name Freq PRN Reason Stop Dose Admin Acetaminophen 650 mg 12/22/24 00:53 Acetaminophen 325 Mg Tablet PO Q4H PRN Mild Pain (1-3) or Fever Aspirin 81 mg 12/22/24 08:00 12/24/24 08:04 Aspirin 81 Mg Chewable Tablet PO 81 mg DAILY@0800 VEE Administration Atorvastatin Calcium 80 mg 12/21/24 20:25 12/24/24 09:03 Atorvastatin 40 Mg Tablet PO 80 mg DAILY VEE Administration Heparin Sodium (Porcine) 4,000 units 12/21/24 16:49 12/22/24 01:57 Heparin Sodium 5,000 Units/Ml Vial IV PUSH 4,000 units PRN PRN Administration aPTT less than 55 seconds Heparin Sodium (Porcine) 2,000 units 12/21/24 16:49 12/24/24 04:43 Heparin Sodium 5,000 Units/Ml Vial IV PUSH 2,000 units PRN PRN Administration aPTT 55 - 70 seconds Heparin Sodium/Dextrose 25,000 units in 250 mls @ 9 mls/hr 12/21/24 20:20 12/24/24 10:26 Heparin Sodium/D5w 100 Units/Ml IV CONT 900 units/hr .Q24H VEE 9 mls/hr Protocol Administration 900 UNITS/HR Metoprolol Tartrate 25 mg 12/21/24 21:00 12/24/24 09:03 Metoprolol Tartrate 25 Mg Tablet PO 25 mg Q12HR VEE Administration Perflutren Lipid Microsphere 0 ml 12/22/24 09:57 Perflutren Lipid Microspheres 1.5 Ml Vial Diluted To 10 Ml Total Volume IV PUSH 12/25/24 09:57 ONCE PRN adequate visualization Protocol Radiology Results: ITS Impressions Chest X-Ray 12/21/24 17:03 IMPRESSION: 1: NO ACUTE CARDIOPULMONARY DISEASE. 2. There are a few distended air-filled loops of bowel in the upper abdomen. Consider dedicated x-rays of the abdomen for further assessment Modified Barium Swallow 12/22/24 16:42 IMPRESSION: Pharyngeal dysphagia with laryngeal penetration and aspiration likely secondary to a malignant appearing mass involving the base of the tongue and the epiglottis as seen on CT from 06/10/2024. Please correlate with speech pathologist findings and specific feeding recommendations. Neck/Chest CT 12/23/24 11:28 IMPRESSION: 1. 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 2. Interval progression of metastatic disease with enlargement of several bilateral cervical lymph nodes and of multiple subcentimeter scattered pulmonary nodules. 2. Indeterminate 1.7 similar hyperdense mass at the posterior dome of the right hepatic lobe also suspicious for metastatic disease. 4. 4.2 cm fusiform ascending thoracic aortic aneurysm. 5. Atherosclerotic calcific lesions at the bilateral carotid bulbs with 70% stenosis on the right. Labs Labs: Laboratory Results - last 24 hr 12/24/24 04:09 WBC 4.8 RBC 3.09 L Hgb 8.3 L Hct 26.6 L MCV 86.1 MCH 26.9 MCHC 31.2 L RDW 13.6 Plt Count 216 MPV 9.4 APTT 56.5 H Sodium 135 L Potassium 3.8 Chloride 104 Carbon Dioxide 29 Anion Gap 2 L BUN 18 Creatinine 0.75 Estim Creat Clear Calc 63 Estimated GFR > 60 Glucose 92 Calcium 9.1 Magnesium 1.9 Total Bilirubin 0.3 AST 78 H ALT 29 Alkaline Phosphatase 57 Total Protein 6.7 Albumin 3.5
[2024-12-24 11:11] LABS: Partial Thromboplastin Time 50.4 Seconds (22.3-36.8)
[2024-12-24] MEDS: POTASSIUM CHLORIDE 20 MEQ PACKET (FOR LIQUID) 40 MEQ PO (12:32)
[2024-12-24] MEDS: MAGNESIUM SULF 2 GM/WATER 50ML 2 GM/50 ML BAG IVPB (12:32)
[2024-12-24 18:46] LABS: Partial Thromboplastin Time 122.9 Seconds (22.3-36.8)
[2024-12-25] VITALS (18 sets, daily range): BP systolic 111–130; BP diastolic 54–75; PULSE 60–77; RESP 12–18; TEMP 36.4–37.3; O2SAT 99–100
[2024-12-25 01:17] LABS: Partial Thromboplastin Time 98.3 Seconds (22.3-36.8)
[2024-12-25 05:13] LABS: Hematocrit 26.2 % (42.0-52.0); Hemoglobin 8.4 g/dL (14.0-18.0); Mean Corpuscular HGB Conc 32.1 g/dl (32-36); Mean Corpuscular Hemoglobin 27.5 pg (26-34); Mean Corpuscular Volume 85.9 fl (80-100); Platelet Count Result 228 k/mm3 (150-375); Red Blood Count 3.05 M/mm3 (4.6-6.20); White Blood Count 7.1 K/mm3 (4.5-10.0)
[2024-12-25 05:27] LABS: Alanine Aminotransferase 21 U/L (6-50); Albumin Level 3.6 g/dL (3.5-5.1); Alkaline Phosphatase 60 U/L (38-126); Anion Gap 5 mmol/L (4-12); Aspartate Amino Transferase 47 U/L (17-59); Bilirubin,Total 0.3 mg/dL (0.2-1.3); Blood Urea Nitrogen 19 mg/dL (9-20); Calcium 9.2 mg/dL (8.4-10.2); Carbon Dioxide 29 mmol/L (22-30); Chloride 104 mmol/L (98-107); Estimated CRCL calculation 65 ml/min; Estimated Glomerular Filt Rate > 60; Glucose 98 mg/dL (65-110); Magnesium 2.2 mg/dL (1.6-2.3); Potassium 4.3 mmol/L (3.4-5.0); Sodium 138 mmol/L (137-145); Total Protein 6.6 g/dL (6.3-8.2)
[2024-12-25 07:33] LABS: Partial Thromboplastin Time 84.6 Seconds (22.3-36.8)
--- NOTE | 2024-12-25 07:55 | P.PNCA_ITS ---
Progress Note: A&P Assessment and Plan (1) ST elevation (STEMI) myocardial infarction: Code(s): I21.3 - ST elevation (STEMI) myocardial infarction of unspecified site Status: Acute Plan 1. Inferior STEMI 2. Hypertension 3. Former nonsmoker 4. 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 Infrequent episodes of hemoptysis 6. Atrial fibrillation In regards to NSTEMI, [facility] (12/21/2024) Post POBA of mRCA, no KYLIE placed as he had difficulty in taking medications -continue aspirin 81 mg daily -continue to hold Plavix until the PEG tube placement she is supposed to happen tomorrow Thursday. -continue metoprolol, heparin infusion and atorvastatin. -Dr. simmons did discussion with him and his regarding further plan of action in the light of heavily calcified vessels with significant stenosis in the LAD, circumflex and RCA. We discussed the plan for revascularization, modalities of revascularization. We discussed the ened for a PEG placemtn and determination of his prognosis prior to any aggressive revascularization attempt. - He understood the risk of bleeding from his malignant mass while he is on DAPT and heparin - Will keep him on heparin infusion if DAPT has to be stopped in case of PEG tube placement. In regards to hyperlipidemia, continue atorvastatin. In regards to hypertension continue metoprolol. Controlled. In regards to metastatic cancer of the tongue, was plan for radiation therapy next week. He will need to follow-up with oncology. Subjective Date/time seen: 12/25/24 07:55 Interval history: No chest pain No shortness of breaths On heparin infusion On aspirin/Plavix Hemoglobin stable no obvious bleeding Seen by GI, planned for PEG on Thursday noted Date of service 12/24/2024-resting comfortably in bed. No chest pain. Taking pills with puree diet. Denies chest pain. No arrhythmia on telemetry Date of service 12/25/2024: Resting comfortably in bed. No arrhythmia on telemetry. Denies chest pain. Review of Systems Review of Systems: A 10 system review of systems was completed on the patient and is negative except for what is stated in the HPI. Nursing and ancillary documentation was reviewed. Exam Narrative: GENERAL: thin, cachectic HEAD: Normocephalic, atraumatic. EYES: PERRLA and EOMI. ENT: Nares clear, no rhinorrhea or epistaxis. Mucous membranes moist. NECK: Supple. Large nodular mass on the right side of the neck CHEST: Clear to auscultation. No respiratory distress. HEART: Regular rate and rhythm. No murmur heard. Normal peripheral pulses. ABDOMEN: Soft, nontender, nondistended, normal active bowel sounds. EXTREMITIES: Normal range of motion. No edema. SKIN: Warm, dry, no rash. NEURO: No focal deficits. Alert and oriented x3. PSYCH: Normal mood and affect. Objective Data Vital Signs Vital Signs: Vital Signs - 24 hr 12/24/24 08:00 12/24/24 09:03 12/24/24 10:00 Temperature Pulse Rate 81 77 62 Respiratory Rate Blood Pressure Pulse Oximetry Oxygen Delivery Fraction of Inspired Oxygen 12/24/24 12:00 12/24/24 12:10 12/24/24 14:00 Temperature 37.6 C Pulse Rate 66 70 65 Respiratory Rate 12 Blood Pressure 113/64 Pulse Oximetry 100 Oxygen Delivery Fraction of Inspired Oxygen 12/24/24 15:51 12/24/24 16:00 12/24/24 18:00 Temperature 36.4 C L Pulse Rate 66 67 77 Respiratory Rate 12 Blood Pressure 115/60 Pulse Oximetry 100 Oxygen Delivery Fraction of Inspired Oxygen 12/24/24 19:42 12/24/24 20:00 12/24/24 20:15 Temperature 37.5 C Pulse Rate 72 72 Respiratory Rate 16 Blood Pressure 122/70 Pulse Oximetry 100 Oxygen Delivery Room Air Fraction of Inspired Oxygen 12/24/24 20:24 12/24/24 21:53 12/24/24 22:00 Temperature Pulse Rate 70 65 67 Respiratory Rate 20 Blood Pressure Pulse Oximetry 99 Oxygen Delivery Room Air Fraction of Inspired Oxygen 21 12/25/24 00:00 12/25/24 00:30 12/25/24 00:30 Temperature 37.3 C Pulse Rate 65 61 Respiratory Rate 14 Blood Pressure 125/59 L Pulse Oximetry 100 Oxygen Delivery Room Air Fraction of Inspired Oxygen 12/25/24 02:00 12/25/24 04:00 12/25/24 04:15 Temperature Pulse Rate 67 66 Respiratory Rate Blood Pressure Pulse Oximetry Oxygen Delivery Room Air Fraction of Inspired Oxygen 12/25/24 05:33 12/25/24 06:00 Temperature 36.7 C Pulse Rate 62 70 Respiratory Rate 18 Blood Pressure 112/64 Pulse Oximetry 100 Oxygen Delivery Fraction of Inspired Oxygen Intake/Output Intake/Output: Intake & Output 12/22/24 12/23/24 12/24/24 12/25/24 23:59 23:59 23:59 23:59 Intake Total 720 1000 802.9 277.5 Output Total 1725 775 500 600 Balance -1005 225 302.9 -322.5 Meds/Results Medications: Active Medications Generic Name Dose Route Start Last Admin Trade Name Freq PRN Reason Stop Dose Admin Acetaminophen 650 mg 12/22/24 00:53 Acetaminophen 325 Mg Tablet PO Q4H PRN Mild Pain (1-3) or Fever Aspirin 81 mg 12/22/24 08:00 12/24/24 08:04 Aspirin 81 Mg Chewable Tablet PO 81 mg DAILY@0800 VEE Administration Atorvastatin Calcium 80 mg 12/21/24 20:25 12/24/24 09:03 Atorvastatin 40 Mg Tablet PO 80 mg DAILY VEE Administration Heparin Sodium (Porcine) 4,000 units 12/21/24 16:49 12/24/24 11:22 Heparin Sodium 5,000 Units/Ml Vial IV PUSH 4,000 units PRN PRN Administration aPTT less than 55 seconds Heparin Sodium (Porcine) 2,000 units 12/21/24 16:49 12/24/24 04:43 Heparin Sodium 5,000 Units/Ml Vial IV PUSH 2,000 units PRN PRN Administration aPTT 55 - 70 seconds Heparin Sodium/Dextrose 25,000 units in 250 mls @ 10 mls/hr 12/21/24 20:20 12/25/24 07:35 Heparin Sodium/D5w 100 Units/Ml IV CONT 1,000 units/hr .Q24H VEE 10 mls/hr Protocol Titration 1,000 UNITS/HR Metoprolol Tartrate 25 mg 12/21/24 21:00 12/24/24 20:24 Metoprolol Tartrate 25 Mg Tablet PO 25 mg Q12HR VEE Administration Perflutren Lipid Microsphere 0 ml 12/22/24 09:57 Perflutren Lipid Microspheres 1.5 Ml Vial Diluted To 10 Ml Total Volume IV PUSH 12/25/24 09:57 ONCE PRN adequate visualization Protocol Radiology Results: ITS Impressions Chest X-Ray 12/21/24 17:03 IMPRESSION: 1: NO ACUTE CARDIOPULMONARY DISEASE. 2. There are a few distended air-filled loops of bowel in the upper abdomen. Consider dedicated x-rays of the abdomen for further assessment Modified Barium Swallow 12/22/24 16:42 IMPRESSION: Pharyngeal dysphagia with laryngeal penetration and aspiration likely secondary to a malignant appearing mass involving the base of the tongue and the epiglottis as seen on CT from 06/10/2024. Please correlate with speech pathologist findings and specific feeding recommendations. Neck/Chest CT 12/23/24 11:28 IMPRESSION: 1. 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 2. Interval progression of metastatic disease with enlargement of several bilateral cervical lymph nodes and of multiple subcentimeter scattered pulmonary nodules. 2. Indeterminate 1.7 similar hyperdense mass at the posterior dome of the right hepatic lobe also suspicious for metastatic disease. 4. 4.2 cm fusiform ascending thoracic aortic aneurysm. 5. Atherosclerotic calcific lesions at the bilateral carotid bulbs with 70% stenosis on the right. Labs Labs: Laboratory Results - last 24 hr 12/24/24 12/24/24 12/25/24 10:49 18:00 00:59 WBC RBC Hgb Hct MCV MCH MCHC RDW Plt Count MPV APTT 50.4 H 122.9 H 98.3 H Sodium Potassium Chloride Carbon Dioxide Anion Gap BUN Creatinine Estim Creat Clear Calc Estimated GFR Glucose Calcium Magnesium Total Bilirubin AST ALT Alkaline Phosphatase Total Protein Albumin 12/25/24 12/25/24 04:47 07:14 WBC 7.1 RBC 3.05 L Hgb 8.4 L Hct 26.2 L MCV 85.9 MCH 27.5 MCHC 32.1 RDW 13.5 Plt Count 228 MPV 9.8 APTT 84.6 H Sodium 138 Potassium 4.3 Chloride 104 Carbon Dioxide 29 Anion Gap 5 BUN 19 Creatinine 0.74 Estim Creat Clear Calc 65 Estimated GFR > 60 Glucose 98 Calcium 9.2 Magnesium 2.2 Total Bilirubin 0.3 AST 47 ALT 21 Alkaline Phosphatase 60 Total Protein 6.6 Albumin 3.6 Quality VTE Prophylaxis VTE prophylaxis: pharmacologic ordered
[2024-12-25] MEDS: METOPROLOL TARTRATE 25 MG TABLET PO ×2 (09:00→20:25)
[2024-12-25] MEDS: ATORVASTATIN 40 MG TABLET 80 MG PO (09:01)
[2024-12-25] MEDS: ASPIRIN 81 MG CHEWABLE TABLET PO (09:01)
--- NOTE | 2024-12-25 11:01 | WPDGIPROGNO ---
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 Cardiology team on board, will discontinue heparin drip tonight prior to PEG placement tomorrow. Subjective Date/time seen: 12/25/24 11:01 Objective Data Vital Signs Vital Signs: Vital Signs - 24 hr 12/24/24 12:00 12/24/24 12:10 12/24/24 14:00 Temperature 99.6 F Pulse Rate 66 70 65 Respiratory Rate 12 Blood Pressure 113/64 Pulse Oximetry 100 Oxygen Delivery Fraction of Inspired Oxygen 12/24/24 15:51 12/24/24 16:00 12/24/24 18:00 Temperature 97.5 F L Pulse Rate 66 67 77 Respiratory Rate 12 Blood Pressure 115/60 Pulse Oximetry 100 Oxygen Delivery Fraction of Inspired Oxygen 12/24/24 19:42 12/24/24 20:00 12/24/24 20:15 Temperature 99.5 F Pulse Rate 72 72 Respiratory Rate 16 Blood Pressure 122/70 Pulse Oximetry 100 Oxygen Delivery Room Air Fraction of Inspired Oxygen 12/24/24 20:24 12/24/24 21:53 12/24/24 22:00 Temperature Pulse Rate 70 65 67 Respiratory Rate 20 Blood Pressure Pulse Oximetry 99 Oxygen Delivery Room Air Fraction of Inspired Oxygen 21 12/25/24 00:00 12/25/24 00:30 12/25/24 00:30 Temperature 99.1 F Pulse Rate 65 61 Respiratory Rate 14 Blood Pressure 125/59 L Pulse Oximetry 100 Oxygen Delivery Room Air Fraction of Inspired Oxygen 12/25/24 02:00 12/25/24 04:00 12/25/24 04:15 Temperature Pulse Rate 67 66 Respiratory Rate Blood Pressure Pulse Oximetry Oxygen Delivery Room Air Fraction of Inspired Oxygen 12/25/24 05:33 12/25/24 06:00 12/25/24 08:00 Temperature 98.0 F 97.7 F Pulse Rate 62 70 77 Respiratory Rate 18 12 Blood Pressure 112/64 119/65 Pulse Oximetry 100 100 Oxygen Delivery Fraction of Inspired Oxygen 12/25/24 08:00 12/25/24 08:00 12/25/24 09:00 Temperature Pulse Rate 73 77 Respiratory Rate Blood Pressure Pulse Oximetry Oxygen Delivery Room Air Fraction of Inspired Oxygen 12/25/24 10:00 Temperature Pulse Rate 63 Respiratory Rate Blood Pressure Pulse Oximetry Oxygen Delivery Fraction of Inspired Oxygen Intake/Output Intake/Output: Intake & Output 12/22/24 12/23/24 12/24/24 12/25/24 23:59 23:59 23:59 23:59 Intake Total 720 1000 802.9 277.5 Output Total 1725 775 500 600 Balance -1005 225 302.9 -322.5 Meds/Results Medications: Active Medications Generic Name Dose Route Start Last Admin Trade Name Freq PRN Reason Stop Dose Admin Acetaminophen 650 mg 12/22/24 00:53 Acetaminophen 325 Mg Tablet PO Q4H PRN Mild Pain (1-3) or Fever Aspirin 81 mg 12/22/24 08:00 12/25/24 09:01 Aspirin 81 Mg Chewable Tablet PO 81 mg DAILY@0800 VEE Administration Atorvastatin Calcium 80 mg 12/21/24 20:25 12/25/24 09:01 Atorvastatin 40 Mg Tablet PO 80 mg DAILY VEE Administration Heparin Sodium (Porcine) 4,000 units 12/21/24 16:49 12/24/24 11:22 Heparin Sodium 5,000 Units/Ml Vial IV PUSH 4,000 units PRN PRN Administration aPTT less than 55 seconds Heparin Sodium (Porcine) 2,000 units 12/21/24 16:49 12/24/24 04:43 Heparin Sodium 5,000 Units/Ml Vial IV PUSH 2,000 units PRN PRN Administration aPTT 55 - 70 seconds Heparin Sodium/Dextrose 25,000 units in 250 mls @ 10 mls/hr 12/21/24 20:20 12/25/24 07:35 Heparin Sodium/D5w 100 Units/Ml IV CONT 1,000 units/hr .Q24H VEE 10 mls/hr Protocol Titration 1,000 UNITS/HR Metoprolol Tartrate 25 mg 12/21/24 21:00 12/25/24 09:00 Metoprolol Tartrate 25 Mg Tablet PO 25 mg Q12HR VEE Administration Radiology Results: ITS Impressions Chest X-Ray 12/21/24 17:03 IMPRESSION: 1: NO ACUTE CARDIOPULMONARY DISEASE. 2. There are a few distended air-filled loops of bowel in the upper abdomen. Consider dedicated x-rays of the abdomen for further assessment Modified Barium Swallow 12/22/24 16:42 IMPRESSION: Pharyngeal dysphagia with laryngeal penetration and aspiration likely secondary to a malignant appearing mass involving the base of the tongue and the epiglottis as seen on CT from 06/10/2024. Please correlate with speech pathologist findings and specific feeding recommendations. Neck/Chest CT 12/23/24 11:28 IMPRESSION: 1. 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 2. Interval progression of metastatic disease with enlargement of several bilateral cervical lymph nodes and of multiple subcentimeter scattered pulmonary nodules. 2. Indeterminate 1.7 similar hyperdense mass at the posterior dome of the right hepatic lobe also suspicious for metastatic disease. 4. 4.2 cm fusiform ascending thoracic aortic aneurysm. 5. Atherosclerotic calcific lesions at the bilateral carotid bulbs with 70% stenosis on the right. Labs Labs: Laboratory Results - last 24 hr 12/24/24 12/24/24 12/25/24 10:49 18:00 00:59 WBC RBC Hgb Hct MCV MCH MCHC RDW Plt Count MPV APTT 50.4 H 122.9 H 98.3 H Sodium Potassium Chloride Carbon Dioxide Anion Gap BUN Creatinine Estim Creat Clear Calc Estimated GFR Glucose Calcium Magnesium Total Bilirubin AST ALT Alkaline Phosphatase Total Protein Albumin 12/25/24 12/25/24 04:47 07:14 WBC 7.1 RBC 3.05 L Hgb 8.4 L Hct 26.2 L MCV 85.9 MCH 27.5 MCHC 32.1 RDW 13.5 Plt Count 228 MPV 9.8 APTT 84.6 H Sodium 138 Potassium 4.3 Chloride 104 Carbon Dioxide 29 Anion Gap 5 BUN 19 Creatinine 0.74 Estim Creat Clear Calc 65 Estimated GFR > 60 Glucose 98 Calcium 9.2 Magnesium 2.2 Total Bilirubin 0.3 AST 47 ALT 21 Alkaline Phosphatase 60 Total Protein 6.6 Albumin 3.6
[2024-12-25] MEDS: HEPARIN SOD/D5W 100 UNITS/ML 25,000 UNITS/250 ML BAG 10 UNITS IV CONT (11:03)
[2024-12-26] VITALS (29 sets, daily range): BP systolic 122–156; BP diastolic 64–90; PULSE 60–101; RESP 12–21; TEMP 35.9–37.3; O2SAT 100
[2024-12-26 04:03] LABS: Hematocrit 28.6 % (42.0-52.0); Hemoglobin 9.0 g/dL (14.0-18.0); Mean Corpuscular HGB Conc 31.5 g/dl (32-36); Mean Corpuscular Hemoglobin 27.2 pg (26-34); Mean Corpuscular Volume 86.4 fl (80-100); Platelet Count Result 229 k/mm3 (150-375); Red Blood Count 3.31 M/mm3 (4.6-6.20); White Blood Count 5.3 K/mm3 (4.5-10.0)
[2024-12-26 04:30] LABS: Alanine Aminotransferase 30 U/L (6-50); Albumin Level 3.8 g/dL (3.5-5.1); Alkaline Phosphatase 65 U/L (38-126); Anion Gap 4 mmol/L (4-12); Aspartate Amino Transferase 51 U/L (17-59); Bilirubin,Total 0.2 mg/dL (0.2-1.3); Blood Urea Nitrogen 22 mg/dL (9-20); Calcium 9.3 mg/dL (8.4-10.2); Carbon Dioxide 28 mmol/L (22-30); Chloride 105 mmol/L (98-107); Estimated CRCL calculation 65 ml/min; Estimated Glomerular Filt Rate > 60; Glucose 113 mg/dL (65-110); Magnesium 1.9 mg/dL (1.6-2.3); Potassium 4.3 mmol/L (3.4-5.0); Sodium 137 mmol/L (137-145); Total Protein 7.0 g/dL (6.3-8.2)
[2024-12-26 04:42] LABS: Partial Thromboplastin Time 72.0 Seconds (22.3-36.8)
--- NOTE | 2024-12-26 10:08 | PM.PNCARD ---
Progress Note: A&P Assessment and Plan (1) ST elevation (STEMI) myocardial infarction: Code(s): I21.3 - ST elevation (STEMI) myocardial infarction of unspecified site Status: Acute Plan 1. Inferior STEMI 2. Hypertension 3. Former nonsmoker 4. 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 Infrequent episodes of hemoptysis 6. Atrial fibrillation In regards to NSTEMI, [facility] (12/21/2024) Post POBA of mRCA, no KYLIE placed as he had difficulty in taking medications -continue aspirin 81 mg daily -Load with Plavix after PEG tube placement later today, followed by 75mg plavix daily thereafter -discontinue heparin drip after PEG placement -continue metoprolol, atorvastatin. -Dr. Silva had discussion with him and his regarding further plan of action in the light of heavily calcified vessels with significant stenosis in the LAD, circumflex and RCA. We discussed the plan for revascularization, modalities of revascularization. We discussed the need for a PEG placement and determination of his prognosis prior to any aggressive revascularization attempt. In regards to hyperlipidemia, continue atorvastatin. In regards to hypertension continue metoprolol. Controlled. In regards to metastatic cancer of the tongue, was plan for radiation therapy next week. He will need to follow-up with oncology. Subjective Date/time seen: 12/26/24 10:08 Interval history: No chest pain No shortness of breaths On heparin infusion On aspirin/Plavix Hemoglobin stable no obvious bleeding Seen by GI, planned for PEG on Thursday noted Date of service 12/24/2024-resting comfortably in bed. No chest pain. Taking pills with puree diet. Denies chest pain. No arrhythmia on telemetry Date of service 12/25/2024: Resting comfortably in bed. No arrhythmia on telemetry. Denies chest pain. Date of service 12/26/2024: No cardiovascular complaints. Denies chest pain, palpitations, shortness of breath. Review of Systems Review of Systems: A 10 system review of systems was completed on the patient and is negative except for what is stated in the HPI. Nursing and ancillary documentation was reviewed. Exam Narrative: GENERAL: thin, cachectic HEAD: Normocephalic, atraumatic. EYES: PERRLA and EOMI. ENT: Nares clear, no rhinorrhea or epistaxis. Mucous membranes moist. NECK: Supple. Large nodular mass on the right side of the neck CHEST: Clear to auscultation. No respiratory distress. HEART: Regular rate and rhythm. No murmur heard. Normal peripheral pulses. ABDOMEN: Soft, nontender, nondistended, normal active bowel sounds. EXTREMITIES: Normal range of motion. No edema. SKIN: Warm, dry, no rash. NEURO: No focal deficits. Alert and oriented x3. PSYCH: Normal mood and affect. Objective Data Vital Signs Vital Signs: Vital Signs - 24 hr 12/25/24 12:00 12/25/24 12:00 12/25/24 12:00 Temperature 36.4 C L Pulse Rate 68 68 Respiratory Rate 12 Blood Pressure 111/54 L Pulse Oximetry 100 Oxygen Delivery Room Air Fraction of Inspired Oxygen 12/25/24 14:00 12/25/24 16:00 12/25/24 16:00 Temperature 36.9 C Pulse Rate 65 66 Respiratory Rate 12 Blood Pressure 127/60 Pulse Oximetry 100 Oxygen Delivery Room Air Fraction of Inspired Oxygen 12/25/24 16:00 12/25/24 18:00 12/25/24 19:48 Temperature 37.3 C Pulse Rate 63 72 72 Respiratory Rate 16 Blood Pressure 125/66 Pulse Oximetry 99 Oxygen Delivery Fraction of Inspired Oxygen 12/25/24 20:00 12/25/24 20:00 12/25/24 20:25 Temperature Pulse Rate 73 73 72 Respiratory Rate 16 Blood Pressure Pulse Oximetry 99 Oxygen Delivery Room Air Fraction of Inspired Oxygen 12/25/24 21:52 12/25/24 23:45 12/26/24 00:00 Temperature 37.0 C Pulse Rate 66 60 60 Respiratory Rate 15 15 Blood Pressure 130/75 Pulse Oximetry 100 100 Oxygen Delivery Room Air Fraction of Inspired Oxygen 12/26/24 00:00 12/26/24 02:00 12/26/24 03:54 Temperature 36.6 C Pulse Rate 60 64 74 Respiratory Rate 16 Blood Pressure 142/77 H Pulse Oximetry 100 Oxygen Delivery Fraction of Inspired Oxygen 12/26/24 04:00 12/26/24 04:00 12/26/24 06:00 Temperature Pulse Rate 85 85 64 Respiratory Rate 16 Blood Pressure Pulse Oximetry 100 Oxygen Delivery Room Air Fraction of Inspired Oxygen 12/26/24 07:37 12/26/24 08:17 Temperature 36.6 C Pulse Rate 66 Respiratory Rate 16 Blood Pressure 122/75 Pulse Oximetry 100 100 Oxygen Delivery Fraction of Inspired Oxygen Intake/Output Intake/Output: Intake & Output 12/23/24 12/24/24 12/25/24 12/26/24 23:59 23:59 23:59 23:59 Intake Total 1000 802.9 749.3 205.3 Output Total 647 813 4993 400 Balance 225 302.9 -550.7 -194.7 Meds/Results Medications: Active Medications Generic Name Dose Route Start Last Admin Trade Name Freq PRN Reason Stop Dose Admin Acetaminophen 650 mg 12/22/24 00:53 Acetaminophen 325 Mg Tablet PO Q4H PRN Mild Pain (1-3) or Fever Aspirin 81 mg 12/22/24 08:00 12/25/24 09:01 Aspirin 81 Mg Chewable Tablet PO 81 mg DAILY@0800 VEE Administration Atorvastatin Calcium 80 mg 12/21/24 20:25 12/25/24 09:01 Atorvastatin 40 Mg Tablet PO 80 mg DAILY VEE Administration Heparin Sodium (Porcine) 4,000 units 12/21/24 16:49 12/24/24 11:22 Heparin Sodium 5,000 Units/Ml Vial IV PUSH 4,000 units PRN PRN Administration aPTT less than 55 seconds Heparin Sodium (Porcine) 2,000 units 12/21/24 16:49 12/24/24 04:43 Heparin Sodium 5,000 Units/Ml Vial IV PUSH 2,000 units PRN PRN Administration aPTT 55 - 70 seconds Heparin Sodium/Dextrose 25,000 units in 250 mls @ 0 mls/hr 12/21/24 20:20 12/26/24 07:35 Heparin Sodium/D5w 100 Units/Ml IV CONT 0 units/hr .Q0M VEE 0 mls/hr Protocol Titration Metoprolol Tartrate 25 mg 12/21/24 21:00 12/25/24 20:25 Metoprolol Tartrate 25 Mg Tablet PO 25 mg Q12HR VEE Administration Radiology Results: ITS Impressions Chest X-Ray 12/21/24 17:03 IMPRESSION: 1: NO ACUTE CARDIOPULMONARY DISEASE. 2. There are a few distended air-filled loops of bowel in the upper abdomen. Consider dedicated x-rays of the abdomen for further assessment Modified Barium Swallow 12/22/24 16:42 IMPRESSION: Pharyngeal dysphagia with laryngeal penetration and aspiration likely secondary to a malignant appearing mass involving the base of the tongue and the epiglottis as seen on CT from 06/10/2024. Please correlate with speech pathologist findings and specific feeding recommendations. Neck/Chest CT 12/23/24 11:28 IMPRESSION: 1. 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 2. Interval progression of metastatic disease with enlargement of several bilateral cervical lymph nodes and of multiple subcentimeter scattered pulmonary nodules. 2. Indeterminate 1.7 similar hyperdense mass at the posterior dome of the right hepatic lobe also suspicious for metastatic disease. 4. 4.2 cm fusiform ascending thoracic aortic aneurysm. 5. Atherosclerotic calcific lesions at the bilateral carotid bulbs with 70% stenosis on the right. Labs Labs: Laboratory Results - last 24 hr 12/26/24 03:50 WBC 5.3 RBC 3.31 L Hgb 9.0 L Hct 28.6 L MCV 86.4 MCH 27.2 MCHC 31.5 L RDW 13.4 Plt Count 229 MPV 9.8 APTT 72.0 H Sodium 137 Potassium 4.3 Chloride 105 Carbon Dioxide 28 Anion Gap 4 BUN 22 H Creatinine 0.74 Estim Creat Clear Calc 65 Estimated GFR > 60 Glucose 113 H Calcium 9.3 Magnesium 1.9 Total Bilirubin 0.2 AST 51 ALT 30 Alkaline Phosphatase 65 Total Protein 7.0 Albumin 3.8 Quality VTE Prophylaxis VTE prophylaxis: pharmacologic ordered
[2024-12-26] MEDS: LACTATED RINGERS 1,000 ML 150 ML IV CONT (11:10)
[2024-12-26] MEDS: ceFAZolin 1 GM in SODIUM CHLORIDE 0.9% IV 50 ML 100 ML IVPB (11:11)
--- NOTE | 2024-12-26 11:39 | WPDANESEPPF ---
Anes - Initial Pre Proc Eval Procedure: Operation Date: 12/21/24 17:00 Proposed Procedures p Left Heart Cath - Li Silva MD Operation Date: 12/26/24 12:00 Proposed Procedures p Percutaneous Endoscopic Gastrostomy - Ismael Rey MD Date/Time: 12/26/24 11:39 Surgeon: Li Silva MD Pre Op Diagnosis: Stemi Patient Data Age: 64 Gender: M Height: 1.8 m Weight: 51.1 kg Last Vital Signs Temp 35.9 C L 12/26/24 11:03 Pulse 101 H 12/26/24 11:03 Resp 18 12/26/24 11:03 BP 147/84 H 12/26/24 11:03 Pulse Ox 100 12/26/24 11:03 O2 Del Method Room Air 12/26/24 11:03 FiO2 21 12/26/24 04:00 Allergies Allergy/AdvReac Type Severity Reaction Status Date / Time No Known Allergies Allergy Verified 12/26/24 11:01 Home Medications ?Medication ?Instructions ?Recorded ?Confirmed ?Type diltiazem HCl 60 mg 60 mg PO TID #90 caps 11/29/24 12/22/24 Rx capsule,extended release 12 hr scopolamine base 1 mg over 3 days 1 patch transdermal Q3D #10 ea 11/29/24 12/22/24 Rx transdermal patch Laboratory Tests 12/26/24 03:50 WBC 5.3 K/mm3 (4.5-10.0) RBC 3.31 L M/mm3 (4.6-6.20) Hgb 9.0 L g/dL (14.0-18.0) Hct 28.6 L % (42.0-52.0) MCV 86.4 fl (80-100) MCH 27.2 pg (26-34) MCHC 31.5 L g/dl (32-36) RDW 13.4 % (11.5-14.5) Plt Count 229 k/mm3 (150-375) MPV 9.8 fl (7.4-10.4) APTT 72.0 H Seconds (22.3-36.8) Sodium 137 mmol/L (137-145) Potassium 4.3 mmol/L (3.4-5.0) Chloride 105 mmol/L (98-107) Carbon Dioxide 28 mmol/L (22-30) Anion Gap 4 mmol/L (4-12) BUN 22 H mg/dL (9-20) Creatinine 0.74 mg/dL (0.7-1.3) Estim Creat Clear Calc 65 ml/min Estimated GFR > 60 (59 - ) Glucose 113 H mg/dL (65-110) Calcium 9.3 mg/dL (8.4-10.2) Magnesium 1.9 mg/dL (1.6-2.3) Total Bilirubin 0.2 mg/dL (0.2-1.3) AST 51 U/L (17-59) ALT 30 U/L (6-50) Alkaline Phosphatase 65 U/L (38-126) Total Protein 7.0 g/dL (6.3-8.2) Albumin 3.8 g/dL (3.5-5.1) Patient hx anesthesia problems: none Family hx anesthesia problems: none Results Review: All pre-operative results and documents have been reviewed as part of the pre-operative evaluation. [facility] Past Medical History Medical History Anticoagulant long-term use Malnutrition Hyperlipidemia Essential hypertension Tonsil cancer Dysphagia Surgical History Surgical History H/O lymph node excision Family History Family History Mother Hypertension Family history of coronary artery disease Sibling Hypertension Cerebrovascular accident Social History Social History Smoking status: Former smoker Tobacco type: cigars Smoking end date: 05/04/14 Alcohol intake: current Drinks per week: 1 Substance use type: marijuana Last use: 11/01/2024 Lack of Transportation: No Lack of Food: Never True Current Housing: I Have Housing Concerned About Future Housing: No Difficulty Paying Gas/Electric Bills: No Difficulty Paying for Meds: No Currently Unemployed: No Education: Decline to Answer Difficulty w/ Childcare or Family Care: No Living arrangements: with family Spiritual care concerns: No Anes - Eval Final PreProcedure Day of Procedure 12/26/24 11:39 Patient weight: cachectic Heart: tachycardia Lungs: decreased breath sounds Airway: Mallampati scale class III and special considerations (right neck mass difficult phonation will need to secure airway prior to proceeding) Neurological: alert and oriented Last oral intake: >/= 8 hours ASA classification: IV Emergent: no Anesthetic plan: proceed Anesthesia type and monitoring: general ETT and standard monitoring Results Review: All pre-operative results and documents have been reviewed as part of the pre-operative evaluation. Informed Consent: The patient's anesthetic plan and its attendant risks and benefits were discussed with the patient/family/POA. Questions were solicited and answers provided to the satisfaction of the patient/family/POA.
--- NOTE | 2024-12-26 12:07 | SUR.OPER ---
verbal permission from Spouse Audrey and sister Alessandra was granted to [facility] students Edward and Isabella to be present in the procedure room.
--- NOTE | 2024-12-26 12:07 | PCNFU ---
Nutrition Follow-Up Complete: Severe Protein Calorie Malnutrition as related to inadequate protein energy intake with increased protein-energy needs in setting of chronic disease (cancer) as evidenced by minimal oral intake for < 1-2 months; significant weight loss of 21%(30 ibs) in 3 months; severe muscle wasting (temporalis, clavicle, shoulder) and subcutaneous fat loss (facial cheeks, ribs). Goal:Meet estimated nutritional needs. Pt progressing towards goal, continue with same goal Pt current nutrition is NPO for PEG placement. Nutrition recommendation: Pureed level 4, level 3 liquids for pleasure. Tube feeding for nutrition support. Per speech therapy recommendations Last recorded weight is 51.1 kg. Bowel Motility: No BM recorded at this time Labs Reviewed:Hgb:9.0, HCT:28.6, BUN:22, Glu:113 Meds Noted: lactated ringers Skin:WNL Additional Notes: Pt NPO today for PEG placement. Speech recommends a pureed diet with level 3 liquids for pleasure and 100% needs via PEG. Tube feed recommendations are for Jevity 1.5 @ a goal rate of 55ml/hr continuous or 300ml bolud QID with a 100ml free water flush q 4 hrs. This totals 1800kcals, 76g protein, 1512ml free water Will monitor weight , labs, skin, diet orders, meds every Thursday and Thursday.
--- NOTE | 2024-12-26 13:50 | PC.NURSE ---
pt returned to floor from peg placement, post op nurse reports he had bleeding and multiple clots during insertion, pt still having some hemoptysis, emesis bag at bedside, pt and family asking about starting tube feedings
[2024-12-26] MEDS: ATORVASTATIN 40 MG TABLET 80 MG PO (16:29)
[2024-12-26] MEDS: CLOPIDOGREL BISULFATE 300 MG TABLET 600 MG PO (16:29)
[2024-12-26] MEDS: METOPROLOL TARTRATE 25 MG TABLET PO ×2 (16:29→21:26)
[2024-12-26] MEDS: ASPIRIN 81 MG CHEWABLE TABLET PO (16:29)
--- NOTE | 2024-12-26 17:05 | PC.NURSE ---
On 12/26/24, the student, [ ], provided care and completed [employer] documentation on this patient. I have reviewed the student's documentation and agree with the findings. Loir Morrison
[2024-12-27] VITALS (19 sets, daily range): BP systolic 106–131; BP diastolic 51–71; PULSE 61–80; RESP 14–18; TEMP 36.4–36.9; O2SAT 95–100
[2024-12-27 04:17] LABS: Hematocrit 28.2 % (42.0-52.0); Hemoglobin 8.8 g/dL (14.0-18.0); Mean Corpuscular HGB Conc 31.2 g/dl (32-36); Mean Corpuscular Hemoglobin 26.8 pg (26-34); Mean Corpuscular Volume 86.0 fl (80-100); Platelet Count Result 256 k/mm3 (150-375); Red Blood Count 3.28 M/mm3 (4.6-6.20); White Blood Count 8.7 K/mm3 (4.5-10.0)
[2024-12-27 04:52] LABS: Alanine Aminotransferase 32 U/L (6-50); Albumin Level 3.9 g/dL (3.5-5.1); Alkaline Phosphatase 60 U/L (38-126); Anion Gap 7 mmol/L (4-12); Aspartate Amino Transferase 38 U/L (17-59); Bilirubin,Total 0.4 mg/dL (0.2-1.3); Blood Urea Nitrogen 18 mg/dL (9-20); Calcium 9.7 mg/dL (8.4-10.2); Carbon Dioxide 27 mmol/L (22-30); Chloride 103 mmol/L (98-107); Estimated CRCL calculation 71 ml/min; Estimated Glomerular Filt Rate > 60; Glucose 127 mg/dL (65-110); Magnesium 1.9 mg/dL (1.6-2.3); Potassium 4.4 mmol/L (3.4-5.0); Sodium 137 mmol/L (137-145); Total Protein 7.3 g/dL (6.3-8.2)
--- NOTE | 2024-12-27 06:30 | WPDGIPROGNO ---
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, unspecified Status: Acute Assessment and Plan: s/p g-tube placement on tube feeding no complications will follow as needed (2) Dysphagia: Qualifiers: Dysphagia type: oropharyngeal phase Qualified Code(s): R13.12 - Dysphagia, oropharyngeal phase Code(s): R13.10 - Dysphagia, unspecified Status: Acute Assessment and Plan: from malignancy (3) Weight loss: Code(s): R63.4 - Abnormal weight loss Status: Acute (4) ST elevation (STEMI) myocardial infarction: Code(s): I21.3 - ST elevation (STEMI) myocardial infarction of unspecified site Status: Acute Assessment and Plan: 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 EYES: PERRLA and EOMI. ENT: Nares clear, no rhinorrhea or epistaxis. Mucous membranes moist. NECK: Supple. Large nodular mass on the right side of the neck CHEST: Clear to auscultation. No respiratory distress. HEART: Regular rate and rhythm. No murmur heard. Normal peripheral pulses. ABDOMEN: Soft, nontender, nondistended, normal active bowel sounds. G-tube in place EXTREMITIES: Normal range of motion. No edema. SKIN: Warm, dry, no rash. NEURO: No focal deficits. Alert and oriented x3. PSYCH: Normal mood and affect. Objective Data Vital Signs Vital Signs: Vital Signs - 24 hr 12/26/24 07:37 12/26/24 08:00 12/26/24 08:00 Temperature 97.9 F Pulse Rate 66 71 Respiratory Rate 16 Blood Pressure 122/75 Pulse Oximetry 100 Oxygen Delivery Room Air Oxygen Flow Rate Fraction of Inspired Oxygen 12/26/24 08:17 12/26/24 10:00 12/26/24 11:03 Temperature 96.7 F L Pulse Rate 71 101 H Respiratory Rate 18 Blood Pressure 147/84 H Pulse Oximetry 100 100 Oxygen Delivery Room Air Oxygen Flow Rate Fraction of Inspired Oxygen 12/26/24 12:45 12/26/24 12:50 12/26/24 12:55 Temperature 97.2 F L Pulse Rate 84 81 82 Respiratory Rate 21 H 18 Blood Pressure 150/77 H 154/78 H Pulse Oximetry 100 100 100 Oxygen Delivery Simple Face Mask Face Tent Face Tent Oxygen Flow Rate 8 8 8 Fraction of Inspired Oxygen 33 33 12/26/24 13:05 12/26/24 13:15 12/26/24 13:25 Temperature Pulse Rate 84 91 88 Respiratory Rate 19 20 18 Blood Pressure 155/86 H 156/77 H 141/90 H Pulse Oximetry 100 100 100 Oxygen Delivery Room Air Room Air Room Air Oxygen Flow Rate Fraction of Inspired Oxygen 12/26/24 13:35 12/26/24 13:57 12/26/24 14:00 Temperature 97.6 F Pulse Rate 84 83 79 Respiratory Rate 15 20 Blood Pressure 146/76 H 139/73 Pulse Oximetry 100 100 Oxygen Delivery Room Air Oxygen Flow Rate Fraction of Inspired Oxygen 12/26/24 14:28 12/26/24 15:06 12/26/24 16:00 Temperature 98.4 F 98.2 F Pulse Rate 82 80 75 Respiratory Rate 14 16 Blood Pressure 132/73 129/67 Pulse Oximetry 100 100 Oxygen Delivery Oxygen Flow Rate Fraction of Inspired Oxygen 12/26/24 16:00 12/26/24 16:18 12/26/24 18:00 Temperature 98.5 F Pulse Rate 82 73 Respiratory Rate Blood Pressure 150/76 H Pulse Oximetry 100 100 Oxygen Delivery Room Air Oxygen Flow Rate Fraction of Inspired Oxygen 12/26/24 19:42 12/26/24 20:00 12/26/24 21:26 Temperature 99.1 F Pulse Rate 75 77 76 Respiratory Rate 12 Blood Pressure 127/73 Pulse Oximetry 100 Oxygen Delivery Oxygen Flow Rate Fraction of Inspired Oxygen 12/26/24 22:00 12/26/24 23:41 12/27/24 00:00 Temperature 98.5 F Pulse Rate 73 66 61 Respiratory Rate 14 Blood Pressure 123/64 Pulse Oximetry 100 Oxygen Delivery Oxygen Flow Rate Fraction of Inspired Oxygen 12/27/24 02:00 12/27/24 03:56 12/27/24 04:00 Temperature 98.4 F Pulse Rate 65 67 65 Respiratory Rate 14 Blood Pressure 131/71 Pulse Oximetry 100 Oxygen Delivery Oxygen Flow Rate Fraction of Inspired Oxygen 12/27/24 06:00 Temperature Pulse Rate 62 Respiratory Rate Blood Pressure Pulse Oximetry Oxygen Delivery Oxygen Flow Rate Fraction of Inspired Oxygen Intake/Output Intake/Output: Intake & Output 12/24/24 12/25/24 12/26/24 12/27/24 23:59 23:59 23:59 23:59 Intake Total 802.9 749.3 205.3 580 Output Total 500 1300 700 325 Balance 302.9 -550.7 -494.7 255 Meds/Results Medications: Active Medications Generic Name Dose Route Start Last Admin Trade Name Freq PRN Reason Stop Dose Admin Acetaminophen 650 mg 12/22/24 00:53 Acetaminophen 325 Mg Tablet PO Q4H PRN Mild Pain (1-3) or Fever Aspirin 81 mg 12/22/24 08:00 12/26/24 16:29 Aspirin 81 Mg Chewable Tablet PO 81 mg DAILY@0800 [facility] Administration Atorvastatin Calcium 80 mg 12/21/24 20:25 12/26/24 16:29 Atorvastatin 40 Mg Tablet PO 80 mg DAILY [facility] Administration Clopidogrel Bisulfate 75 mg 12/27/24 09:00 Clopidogrel Bisulfate 75 Mg Tablet PO QAM [facility] Metoprolol Tartrate 25 mg 12/21/24 21:00 12/26/24 21:26 Metoprolol Tartrate 25 Mg Tablet PO 25 mg Q12HR VEE Administration Radiology Results: ITS Impressions Chest X-Ray 12/21/24 17:03 IMPRESSION: 1: NO ACUTE CARDIOPULMONARY DISEASE. 2. There are a few distended air-filled loops of bowel in the upper abdomen. Consider dedicated x-rays of the abdomen for further assessment Modified Barium Swallow 12/22/24 16:42 IMPRESSION: Pharyngeal dysphagia with laryngeal penetration and aspiration likely secondary to a malignant appearing mass involving the base of the tongue and the epiglottis as seen on CT from 06/10/2024. Please correlate with speech pathologist findings and specific feeding recommendations. Neck/Chest CT 12/23/24 11:28 IMPRESSION: 1. 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 2. Interval progression of metastatic disease with enlargement of several bilateral cervical lymph nodes and of multiple subcentimeter scattered pulmonary nodules. 2. Indeterminate 1.7 similar hyperdense mass at the posterior dome of the right hepatic lobe also suspicious for metastatic disease. 4. 4.2 cm fusiform ascending thoracic aortic aneurysm. 5. Atherosclerotic calcific lesions at the bilateral carotid bulbs with 70% stenosis on the right. Labs Labs: Laboratory Results - last 24 hr 12/27/24 03:50 WBC 8.7 RBC 3.28 L Hgb 8.8 L Hct 28.2 L MCV 86.0 MCH 26.8 MCHC 31.2 L RDW 13.5 Plt Count 256 MPV 9.9 Sodium 137 Potassium 4.4 Chloride 103 Carbon Dioxide 27 Anion Gap 7 BUN 18 Creatinine 0.71 Estim Creat Clear Calc 71 Estimated GFR > 60 Glucose 127 H Calcium 9.7 Magnesium 1.9 Total Bilirubin 0.4 AST 38 ALT 32 Alkaline Phosphatase 60 Total Protein 7.3 Albumin 3.9
--- NOTE | 2024-12-27 06:38 | PC.NURSE ---
Patient was started on tube feedings at 20 ml at 2000. Increased to 30 ml at 0000 then increased to 40 ml at 0400. Patient called nurse and said he feels like it's too much and he is not tolerating it well. Spoke to provider who came to bedside and he stated it was okay to bump the feeding back down to what the patient felt he was able to tolerate. Rate is currently back to 20 ml.
[2024-12-27] MEDS: ATORVASTATIN 40 MG TABLET 80 MG PO (08:31)
[2024-12-27] MEDS: METOPROLOL TARTRATE 25 MG TABLET PO ×2 (08:32→20:20)
[2024-12-27] MEDS: CLOPIDOGREL BISULFATE 75 MG TABLET PO (08:32)
[2024-12-27] MEDS: ASPIRIN 81 MG CHEWABLE TABLET PO (08:33)
--- NOTE | 2024-12-27 12:54 | PCNFU ---
Nutrition Follow-Up Complete: Severe Protein Calorie Malnutrition as related to inadequate protein energy intake with increased protein-energy needs in setting of chronic disease (cancer) as evidenced by minimal oral intake for < 1-2 months; significant weight loss of 21%(30 ibs) in 3 months; severe muscle wasting (temporalis, clavicle, shoulder) and subcutaneous fat loss (facial cheeks, ribs). Goal:Meet estimated nutritional needs Pt progressing to goal, continue with current goal Pt current nutrition is Jevity 1.5 continuous. Nutrition recommendation: Advance to goal rate of 55ml/hr and then switch to bolus feeds Last recorded weight is 53.7 kg. Bowel Motility: Labs Reviewed:Hgb:8.8, HCT:28.2, NA:127 Meds Noted: Skin: WNL Additional Notes: Pt started on tube feeds last night, advanced to 40ml and had some tolerance issues so was decreased. Advanced again this morning and back up to 40ml/hr. Pt anxious to get discharged but explained need of tolerance to continuous feeds and then transition to bolus feeds prior to discharge. Plan is to advance to goal rate of 55ml/hr, then administer 300ml bolus and monitor tolerance. Pt would also like pleasure feeds, noted that was ok with speech in evaluation. Nursing to verify orders for pureed diet with level 3 liquids with hospitalist. *Recommendation for home tube feeding regimen is for 300ml bolus QID of Jevity 1.5 with 100ml flush q 4 hrs. This provides 1800kcals, 76g protein, 1512ml free water Will monitor weight , labs, skin, diet orders, meds every Thursday and Thursday.
--- NOTE | 2024-12-27 13:10 | WPDANESPN ---
Anes - Prog Note Post-Op Date/Time: 12/27/24 13:10 Cardiovascular status: normal Respiratory status: normal Airway patency: baseline Mental status: baseline Post-Op hydration status: normal Vital Signs: Last Vital Signs Temp 36.4 C 12/27/24 11:52 Pulse 72 12/27/24 12:00 Resp 18 12/27/24 11:52 BP 106/51 L 12/27/24 11:52 Pulse Ox 99 12/27/24 11:52 O2 Del Method Room Air 12/27/24 12:00 O2 Flow Rate 8 12/26/24 12:55 FiO2 33 12/26/24 12:55 Pain Score (VAS): 1 I/O: Intake & Output 12/26/24 12/27/24 12/27/24 23:59 07:59 15:59 Intake Total 0 580 Output Total 300 325 Balance -300 255 Laboratory Tests 12/27/24 03:50 12/27/24 03:50 12/27/24 03:50 WBC 8.7 RBC 3.28 L Hgb 8.8 L Hct 28.2 L MCV 86.0 MCH 26.8 MCHC 31.2 L RDW 13.5 Plt Count 256 MPV 9.9 Sodium 137 Potassium 4.4 Chloride 103 Carbon Dioxide 27 Anion Gap 7 BUN 18 Creatinine 0.71 Estim Creat Clear Calc 71 Estimated GFR > 60 Glucose 127 H Calcium 9.7 Magnesium 1.9 Total Bilirubin 0.4 AST 38 ALT 32 Alkaline Phosphatase 60 Total Protein 7.3 Albumin 3.9 Post-procedural complaints: none Patient Feedback: Patient satisfied with anesthetic care.
--- NOTE | 2024-12-27 13:46 | P.PNCA_ITS ---
Progress Note: A&P Assessment and Plan (1) ST elevation (STEMI) myocardial infarction: Code(s): I21.3 - ST elevation (STEMI) myocardial infarction of unspecified site Status: Acute Plan 1. Inferior STEMI 2. Hypertension 3. Former nonsmoker 4. 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 Infrequent episodes of hemoptysis 6. Atrial fibrillation In regards to NSTEMI, [facility] (12/21/2024) Post POBA of mRCA, no KYLIE placed as he had difficulty in taking medications -continue aspirin 81 mg daily -continue Plavix 75mg daily -discontinue heparin drip after PEG placement -continue metoprolol, atorvastatin. -Dr. Silva had discussion with him and his regarding further plan of action in the light of heavily calcified vessels with significant stenosis in the LAD, circumflex and RCA. We discussed the plan for revascularization, modalities of revascularization once again today with his sister at the bedside. We discussed the need for determination of his prognosis prior to any aggressive revascularization attempt. In regards to hyperlipidemia, continue atorvastatin. In regards to hypertension continue metoprolol. Controlled. In regards to metastatic cancer of the tongue, has an appointment to start radiation therapy next week. He will need to follow-up with oncology. No further cardiac recommendations to make at this time. Will follow along as needed while the patient remains hospitalized for to feeding adjustments. Hospitalist has been consulted. Subjective Date/time seen: 12/27/24 13:46 Interval history: No chest pain No shortness of breaths On heparin infusion On aspirin/Plavix Hemoglobin stable no obvious bleeding Seen by GI, planned for PEG on Thursday noted Date of service 12/24/2024-resting comfortably in bed. No chest pain. Taking pills with puree diet. Denies chest pain. No arrhythmia on telemetry Date of service 12/25/2024: Resting comfortably in bed. No arrhythmia on telemetry. Denies chest pain. Date of service 12/26/2024: No cardiovascular complaints. Denies chest pain, palpitations, shortness of breath. Date of service 12/27/2024: Patient is status post PEG tube placement yesterday. Feels okay. Does not have any chest pain. He is not at goal yet on his tube feeds. Review of Systems Review of Systems: A 10 system review of systems was completed on the patient and is negative except for what is stated in the HPI. Nursing and ancillary documentation was reviewed. Exam Narrative: GENERAL: thin, cachectic HEAD: Normocephalic, atraumatic. EYES: PERRLA and EOMI. ENT: Nares clear, no rhinorrhea or epistaxis. Mucous membranes moist. NECK: Supple. Large nodular mass on the right side of the neck CHEST: Clear to auscultation. No respiratory distress. HEART: Regular rate and rhythm. No murmur heard. Normal peripheral pulses. ABDOMEN: Soft, nontender, nondistended, PEG tube EXTREMITIES: Normal range of motion. No edema. SKIN: Warm, dry, no rash. NEURO: No focal deficits. Alert and oriented x3. PSYCH: Normal mood and affect. Objective Data Vital Signs Vital Signs: Vital Signs - 24 hr 12/26/24 13:57 12/26/24 14:00 12/26/24 14:28 Temperature 36.4 C 36.9 C Pulse Rate 83 79 82 Respiratory Rate 20 14 Blood Pressure 139/73 132/73 Pulse Oximetry 100 100 Oxygen Delivery 12/26/24 15:06 12/26/24 16:00 12/26/24 16:00 Temperature 36.8 C Pulse Rate 80 75 Respiratory Rate 16 Blood Pressure 129/67 Pulse Oximetry 100 100 Oxygen Delivery Room Air 12/26/24 16:18 12/26/24 18:00 12/26/24 19:42 Temperature 36.9 C 37.3 C Pulse Rate 82 73 75 Respiratory Rate 12 Blood Pressure 150/76 H 127/73 Pulse Oximetry 100 100 Oxygen Delivery 12/26/24 20:00 12/26/24 21:26 12/26/24 22:00 Temperature Pulse Rate 77 76 73 Respiratory Rate Blood Pressure Pulse Oximetry Oxygen Delivery 12/26/24 23:41 12/27/24 00:00 12/27/24 02:00 Temperature 36.9 C Pulse Rate 66 61 65 Respiratory Rate 14 Blood Pressure 123/64 Pulse Oximetry 100 Oxygen Delivery 12/27/24 03:56 12/27/24 04:00 12/27/24 06:00 Temperature 36.9 C Pulse Rate 67 65 62 Respiratory Rate 14 Blood Pressure 131/71 Pulse Oximetry 100 Oxygen Delivery 12/27/24 07:59 12/27/24 08:00 12/27/24 08:32 Temperature 36.5 C Pulse Rate 71 72 74 Respiratory Rate 18 Blood Pressure 111/52 L Pulse Oximetry 100 Oxygen Delivery 12/27/24 09:00 12/27/24 10:00 12/27/24 11:52 Temperature 36.4 C Pulse Rate 72 70 Respiratory Rate 18 Blood Pressure 106/51 L Pulse Oximetry 99 Oxygen Delivery Room Air 12/27/24 12:00 12/27/24 12:00 Temperature Pulse Rate 72 Respiratory Rate Blood Pressure Pulse Oximetry Oxygen Delivery Room Air Intake/Output Intake/Output: Intake & Output 12/24/24 12/25/24 12/26/24 12/27/24 23:59 23:59 23:59 23:59 Intake Total 802.9 749.3 205.3 580 Output Total 500 1300 700 325 Balance 302.9 -550.7 -494.7 255 Meds/Results Medications: Active Medications Generic Name Dose Route Start Last Admin Trade Name Freq PRN Reason Stop Dose Admin Acetaminophen 650 mg 12/22/24 00:53 Acetaminophen 325 Mg Tablet PO Q4H PRN Mild Pain (1-3) or Fever Aspirin 81 mg 12/22/24 08:00 12/27/24 08:33 Aspirin 81 Mg Chewable Tablet PO 81 mg DAILY@0800 VEE Administration Atorvastatin Calcium 80 mg 12/21/24 20:25 12/27/24 08:31 Atorvastatin 40 Mg Tablet PO 80 mg DAILY VEE Administration Clopidogrel Bisulfate 75 mg 12/27/24 09:00 12/27/24 08:32 Clopidogrel Bisulfate 75 Mg Tablet PO 75 mg QAM VEE Administration Metoprolol Tartrate 25 mg 12/21/24 21:00 12/27/24 08:32 Metoprolol Tartrate 25 Mg Tablet PO 25 mg Q12HR VEE Administration Radiology Results: ITS Impressions Chest X-Ray 12/21/24 17:03 IMPRESSION: 1: NO ACUTE CARDIOPULMONARY DISEASE. 2. There are a few distended air-filled loops of bowel in the upper abdomen. Consider dedicated x-rays of the abdomen for further assessment Modified Barium Swallow 12/22/24 16:42 IMPRESSION: Pharyngeal dysphagia with laryngeal penetration and aspiration likely secondary to a malignant appearing mass involving the base of the tongue and the epiglottis as seen on CT from 06/10/2024. Please correlate with speech pathologist findings and specific feeding recommendations. Neck/Chest CT 12/23/24 11:28 IMPRESSION: 1. 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 2. Interval progression of metastatic disease with enlargement of several bilateral cervical lymph nodes and of multiple subcentimeter scattered pulmonary nodules. 2. Indeterminate 1.7 similar hyperdense mass at the posterior dome of the right hepatic lobe also suspicious for metastatic disease. 4. 4.2 cm fusiform ascending thoracic aortic aneurysm. 5. Atherosclerotic calcific lesions at the bilateral carotid bulbs with 70% stenosis on the right. Labs Labs: Laboratory Results - last 24 hr 12/27/24 03:50 WBC 8.7 RBC 3.28 L Hgb 8.8 L Hct 28.2 L MCV 86.0 MCH 26.8 MCHC 31.2 L RDW 13.5 Plt Count 256 MPV 9.9 Sodium 137 Potassium 4.4 Chloride 103 Carbon Dioxide 27 Anion Gap 7 BUN 18 Creatinine 0.71 Estim Creat Clear Calc 71 Estimated GFR > 60 Glucose 127 H Calcium 9.7 Magnesium 1.9 Total Bilirubin 0.4 AST 38 ALT 32 Alkaline Phosphatase 60 Total Protein 7.3 Albumin 3.9 Quality VTE Prophylaxis VTE prophylaxis: pharmacologic ordered
--- NOTE | 2024-12-27 15:04 | PCDIET ---
Spoke with JEANA Loyola regarding bolus feedings. Plans to bolus patient tonight with 300 ml of Jevity 1.5. flush 100 ml before or after feedings.
[2024-12-28] VITALS (12 sets, daily range): BP systolic 111–126; BP diastolic 53–62; PULSE 60–77; RESP 14–18; TEMP 36.6–36.9; O2SAT 99–100
[2024-12-28] MEDS: ATORVASTATIN 40 MG TABLET 80 MG PO (08:33)
[2024-12-28] MEDS: METOPROLOL TARTRATE 25 MG TABLET PO (08:34)
[2024-12-28] MEDS: CLOPIDOGREL BISULFATE 75 MG TABLET PO (08:34)
[2024-12-28] MEDS: ASPIRIN 81 MG CHEWABLE TABLET PO (08:35)
--- NOTE | 2024-12-28 10:18 | PCDIET ---
Nursing reports pt tolerated goal rate for continuous feeds yesterday, administered bolus feeds last night and pt tolerated. Administered another bolus this AM and pt reports tolerating well. Pt anxious to be discharged. Care coordination confirming time for pt education on tube feedings with [employer] for today, prior to discharge. No further nutrition recommendations at this time.
--- NOTE | 2024-12-28 13:39 | P.DS_ITS ---
DS: Admitting Diagnosis Discharge Date 12/28/2024 <DEV Berry - Last Filed: 01/26/25 07:25> Admitting Diagnosis STEMI <DEV Berry - Last Filed: 01/26/25 07:25> DS: Discharge Diagnosis Discharge Diagnosis (1) ST elevation (STEMI) myocardial infarction: Code(s): I21.3 - ST elevation (STEMI) myocardial infarction of unspecified site <DEV Berry - Last Filed: 01/26/25 07:25> Status: Acute <DEV Berry - Last Filed: 01/26/25 07:25> Assessment and Plan: 1. Inferior STEMI 2. Hypertension 3. Former nonsmoker 4. 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 Infrequent episodes of hemoptysis 6. Atrial fibrillation In regards to NSTEMI, [facility] (12/21/2024) Post POBA of mRCA, no KYLIE placed as he had difficulty in taking medications -continue aspirin 81 mg daily -continue Plavix 75mg daily -continue metoprolol, atorvastatin. -Dr. Silva had discussion with him and his regarding further plan of action in the light of heavily calcified vessels with significant stenosis in the LAD, circumflex and RCA. We discussed the plan for revascularization, modalities of revascularization once again today with his at the bedside. We discussed the need for determination of his prognosis prior to any aggressive revascularization attempt. In regards to hyperlipidemia, continue atorvastatin. In regards to hypertension continue metoprolol. Controlled. In regards to metastatic cancer of the tongue, has a consultation appointment for radiation therapy next week at [facility]. S/p PEG tube placement has been transitioned to bolus tube feeds and tolerating well.. PEG tube education completed. <DEV Berry - Last Filed: 01/26/25 07:25> DS: Summary Hospital Course Hospital Course: 12/21/2024: Patient presented to the ED with chest pain and EKG was consistent with inferior STEMI -cardiac catheterization showed three-vessel disease; which included a 100% occluded, heavily calcified mid RCA which was the culprit for presentation -Underwent POBA of the heavily calcified mid RCA and restored DAKOTA 3 blood flow with residual 70% stenosis -post POBA his chest pain resolved, the patient was hemodynamically stable and was transferred to the ICU -extensive discussions with patient and his family regarding further plan of action in the light of heavily calcified vessels with significant stenosis in the LAD, circumflex and RCA -the discussion included the need for revascularization of his vessels. The best modality to revascularize him would be CABG but he most likely is not a candidate for it because of uncertain prognosis of his malignancy. In terms of PCI he will need atherectomy followed by KYLIE placement in all 3 coronary beds. What complicates this situation is the likelihood of him bleeding from his malignant mass and his inability to take DAPT. -after discussion the patient agreed to consider PEG tube placement, to take the DAPT and to be on heparin infusion for 24 hrs post PCI -further revascularization with PCI will be decided after he remains stable on the DAPT and after PEG tube placement -Hospitalization was uncomplicated from a cardiac standpoint following PCI. His hospital stay was prolonged because of his dysphagia and need for PEG tube placement which took place on 12/26/2024. When tube feeding goals were met and education for PEG tube was complete, patient was discharged from the hospital on 12/28/2024. <DEV Berry - Last Filed: 01/26/25 07:25> Dr. Silva had discussion with him and his regarding further plan of action in the light of heavily calcified vessels with significant stenosis in the LAD, circumflex and RCA. We discussed the plan for revascularization, modalities of revascularization once again today with his at the bedside. We discussed the need for determination of his prognosis prior to any aggressive revascularization attempt. In regards to hyperlipidemia, continue atorvastatin. In regards to hypertension continue metoprolol. Controlled. In regards to metastatic cancer of the tongue, has a consultation appointment for radiation therapy next week at [facility]. S/p PEG tube placement has been transitioned to bolus tube feeds and tolerating well.. PEG tube education completed. <Ritchie Noonan MD - Last Filed: 01/23/25 12:13> Time Spent with Patient Time attestation: Total time spent providing and/or coordinating discharge services: <DEV Berry - Last Filed: 01/26/25 07:25> Exam Narrative: GENERAL: thin, cachectic HEAD: Normocephalic, atraumatic. EYES: PERRLA and EOMI. ENT: Nares clear, no rhinorrhea or epistaxis. Mucous membranes moist. NECK: Supple. Large nodular mass on the right side of the neck CHEST: Clear to auscultation. No respiratory distress. HEART: Regular rate and rhythm. No murmur heard. Normal peripheral pulses. ABDOMEN: Soft, nontender, nondistended, PEG tube EXTREMITIES: Normal range of motion. No edema. SKIN: Warm, dry, no rash. NEURO: No focal deficits. Alert and oriented x3. PSYCH: Normal mood and affect. <DEV Berry - Last Filed: 01/26/25 07:25> Discharge Plan Discharge Attending physician on discharge: Ritchie Noonan <DEV Berry - Last Filed: 01/26/25 07:25> Ritchie Noonan <Ritchie Noonan MD - Last Filed: 01/23/25 12:13> Consulting providers: Ritchie Noonan; Slim Zamarripa; Ismael Rey; Wilfrid Benoit; Timothy Ness; Rashid Dawson; Thong Caldwell; Farzad Carty; Bob Pitt; Mariano Carias; Jessee Aaron <DEV Berry - Last Filed: 01/26/25 07:25> Discharging Clinician: Jessica Houtson <DEV Berry - Last Filed: 01/26/25 07:25> Jessica Houston <Ritchie Noonan MD - Last Filed: 01/23/25 12:13> Patient Disposition: Home with Home Health Service <DEV Berry - Last Filed: 01/26/25 07:25> Activity: other - see discharge instructions <DEV Berry - Last Filed: 01/26/25 07:25> other - see discharge instructions <Ritchie Noonan MD - Last Filed: 01/23/25 12:13> Diet: tube feeding <DEV Berry - Last Filed: 01/26/25 07:25> tube feeding <Ritchie Noonan MD - Last Filed: 01/23/25 12:13> Wound Care Instructions: other - see discharge instructions <DEV Berry - Last Filed: 01/26/25 07:25> other - see discharge instructions <Ritchie Noonan MD - Last Filed: 01/23/25 12:13> Discharge Instructions: [facility] [address] [place], [place] [id number] DISCHARGE INSTRUCTIONS - POST PCI Activity 1. No driving x 24 hours. 2. No lifting, pushing or pulling more than 10 pounds for 1 week. 3. No strenuous exercise or activity (including sexual activity) until you are released to do so. 4. May shower but no tub baths or swimming pool for 1 week. Avoid commercial hot tubs. They are too hot. Medications DO NOT STOP YOUR MEDICATIONS ONLY YOUR HR SPECIALIST CAN STOP THE FOLLOWING MEDICATIONS - PLEASE CALL THE OFFICE WITH QUESTIONS. *Aspirin *Atorvastatin *Metoprolol *Clopidogrel (Plavix) Important Reminders 1. Keep your stent card in your wallet at all times 2. Follow a heart healthy diet paying extra attention to cholesterol and fats. 3. Stay hydrated. 4. If you have chest pain unrelieved by rest or nitroglycerin (if prescribed) call 911 immediately. 5. If you miss one dose of Brilinta (if prescribed) take a tablet at the next time due. If you miss 2 doses take a tablet when you remember and resume at the next time due. *For any other questions please call the office at [phone]. Office hours are 8AM 4:30PM Thursday through Thursday. Per Care Coordination: Patient to have Derick FORD for RN teaching with new tube feeding #[phone]. They will contact you to schedule first visit. [facility] will supply tube feeding and contact you to arrange delivery of tube feeding #[phone]. <DEV Berry - Last Filed: 01/26/25 07:25> Patient Instructions: Antibiotic Form <DEV Berry - Last Filed: 01/26/25 07:25> Patient Language: Citizen Of [place] <DEV Berry - Last Filed: 01/26/25 07:25> Stand Alone Forms: General Discharge Information <DEV Berry - Last Filed: 01/26/25 07:25> Follow-up/Referrals: Rashid Dawson MD [Physician, Cardiology] - 4 Weeks Ismael Rey MD [Physician, Gastroenterology] - 2 Weeks <DEV Berry - Last Filed: 01/26/25 07:25> Discharge Medications: New atorvastatin 40 mg Tablet 80 mg PO DAILY 30 Days Qty: 60 11RF clopidogrel 75 mg Tablet 75 mg PO QAM 30 Days Qty: 30 11RF aspirin [Children's Aspirin] 81 mg Tablet,Chewable 81 mg PO DAILY@0800 30 Days Qty: 30 11RF metoprolol tartrate 25 mg Tablet 25 mg PO Q12HR 30 Days Qty: 60 3RF nitroglycerin 0.4 mg tablet, sublingual 0.4 mg sublingual Q5M PRN (Reason: chest pain) Qty: 10 0RF Rx Instructions: do not exceed 3 doses per episode Continued scopolamine base 1 mg over 3 days patch 3 day 1 patch transdermal Q3D Qty: 10 3RF Discontinued diltiazem HCl 60 mg capsule,extended release 12 hr 60 mg PO TID Qty: 90 3RF <DEV Berry - Last Filed: 01/26/25 07:25> Date of admission: 12/21/24 16:49 <DEV Berry - Last Filed: 01/26/25 07:25> Primary Care Provider: Shmuel,[place] <DEV Berry - Last Filed: 01/26/25 07:25> Admitting Provider: Li Silva <DEV Berry - Last Filed: 01/26/25 07:25> Attending physician on admission: Jessica Houston <DEV Berry - Last Filed: 01/26/25 07:25> Condition: Stable <DEV Berry - Last Filed: 01/26/25 07:25>
== END 2024-12-28 15:43 | disposition home health service (06) | DRG 250 ==
LOC: ANHED 17:05 → ANHICU 17:07 → ANHCPC 19:07 → ANHIMU 12-22 15:20
PROVIDERS: Internal Medicine; Internal Medicine Cardiovascular Disease; Internal Medicine Gastroenterology; Admitting Provider Internal Medicine Interventional Cardiology; Emergency Provider Emergency Medicine; PCP Internal Medicine; Visit Provider Nurse Practitioner
PROC: 4A023N7 Measurement of Cardiac Sampling and Pressure, Left Heart, Percutaneous Approach (ICD-10-PCS; CPT 93452; principal; 2024-12-21 17:00)
PROC: 02703ZZ Dilation of Coronary Artery, One Artery, Percutaneous Approach (ICD-10-PCS; CPT 36140; 2024-12-21 17:00)
PROC: 02703ZZ Dilation of Coronary Artery, One Artery, Percutaneous Approach (ICD-10-PCS; CPT 92920; 2024-12-21 17:00)
PROC: 02703ZZ Dilation of Coronary Artery, One Artery, Percutaneous Approach (ICD-10-PCS; 2024-12-21 17:00)
PROC: 0DH63UZ Insertion of Feeding Device into Stomach, Percutaneous Approach (ICD-10-PCS; CPT 43246; principal; 2024-12-26 12:00)
DX: I21.19 ST elevation (STEMI) myocardial infarction involving other coronary artery of inferior wall (principal); E43 Unspecified severe protein-calorie malnutrition; C77.0 Secondary and unspecified malignant neoplasm of lymph nodes of head, face and neck; Z68.1 Body mass index [BMI] 19.9 or less, adult; C09.9 Malignant neoplasm of tonsil, unspecified; R13.12 Dysphagia, oropharyngeal phase; I25.10 Atherosclerotic heart disease of native coronary artery without angina pectoris; C01 Malignant neoplasm of base of tongue; I25.84 Coronary atherosclerosis due to calcified coronary lesion; I48.91 Unspecified atrial fibrillation; I10 Essential (primary) hypertension; F10.90 Alcohol use, unspecified, uncomplicated; E78.5 Hyperlipidemia, unspecified; Z87.891 Personal history of nicotine dependence; Z79.01 Long term (current) use of anticoagulants
CPT/HCPCS: 36140; 36415; 43246; 70491; 71045; 71260; 74230; 80048; 80053; 80061; 83735; 84484; 85025; 85027; 85610; 85730; 86850; 86900; 86901; 87641; 92526; 92611; 92920; 93005; 93306; 93458; 96374; 99291; A9270; C1725; C1760; C1769; C1887; C1894; G0269; J0330; J0690; J1160; J1644; J2003; J2250; J2305; J2371; J2704; J3010; J3475; J7040; J7120; Q9967